=== PATIENT | female | born 1965 | race Caucasian/White ===

== ENCOUNTER 2019-07-10 09:57 | Emergency (ER) | payer OTHER ==
[~2019-07-10] VITALS: Ht 167.7 cm; Wt 52.6 kg
[2019-07-10 10:23] LABS: BASOPHILS % (AUTO) 1 % (0-10); EOSINOPHILS % (AUTO) 1 % (0-10); HEMATOCRIT 23 % (35-52); LYMPHOCYTES # (AUTO) 0.8 X 10^3 (1.0-4.0); LYMPHOCYTES % (AUTO) 25 % (12-44); MEAN CORPUSCULAR HEMOGLOBIN 23 PG (25-34); MEAN CORPUSCULAR HGB CONC 28 G/DL (32-36); MEAN CORPUSCULAR VOLUME 81 FL (80-99); MEAN PLATELET VOLUME 11.2 FL (7.4-10.4); MONOCYTES # (AUTO) 0.4 X 10^3 (0.0-1.0); MONOCYTES % (AUTO) 13 % (0-12); NEUTROPHILS % (AUTO) 61 % (42-75); PLATELET COUNT 109 10^3/uL (130-400); RED CELL DISTRIBUTION WIDTH 19.6 % (10.0-14.5); WHITE BLOOD COUNT 3.3 10^3/uL (4.3-11.0)
[2019-07-10 10:25] LABS: HEMOGLOBIN 6.3 G/DL (11.5-16.0)
[2019-07-10 10:35] LABS: ALBUMIN 3.2 GM/DL (3.2-4.5)
[2019-07-10 10:36] LABS: CHLORIDE 104 MMOL/L (98-107); INR 1.5 (0.8-1.4); POTASSIUM 3.5 MMOL/L (3.6-5.0); PROTHROMBIN TIME PATIENT 18.3 SEC (12.2-14.7); SODIUM 136 MMOL/L (135-145)
[2019-07-10 10:38] LABS: GLUCOSE 115 MG/DL (70-105)
[2019-07-10 10:39] LABS: CARBON DIOXIDE 22 MMOL/L (21-32)
[2019-07-10 10:41] LABS: ALKALINE PHOSPHATASE 137 U/L (40-136)
[2019-07-10 10:42] LABS: CREATININE SERUM 0.84 MG/DL (0.60-1.30); GFR ESTIMATED > 60
[2019-07-10 10:43] LABS: BUN/CREATININE RATIO 6
[2019-07-10 10:44] LABS: ALANINE AMINOTRANSFERASE 20 U/L (0-55); MAGNESIUM 1.8 MG/DL (1.6-2.4)
[2019-07-10 10:54] LABS: ABSOLUTE RETIC # 138 10e9/L (24-90); RETICULOCYTE % 4.91 % (0.50-2.40)
[2019-07-10] MEDS ORDERED: NS IV 500 ML 500 ML ONE (10:56)
--- NOTE | 2019-07-10 11:15 | ED General ---
General Chief Complaint: Respiratory Problems Stated Complaint: SOA Source of Information: Patient Exam Limitations: No Limitations History of Present Illness Date Seen by Provider: July 10, 2019 Time Seen by Provider: 10:04 Initial Comments This 54-year-old woman presents to the emergency room by private vehicle because of severe anemia. She was seen by Daysi Kenyon at the [facility] clinic in [place]. Labs were drawn yesterday and resulted today showing a hemoglobin of 5.7. Patient reports having fatigue and dyspnea with exertion over the past few months. She recently moved here from [place] and was establishing care with [facility]. Allergies and Home Medications Allergies Coded Allergies: Sulfa (Sulfonamide Antibiotics) (Verified Allergy, Unknown, 07/10/19) Patient Home Medication List Home Medication List Reviewed: Yes Review of Systems Review of Systems Constitutional: see HPI EENTM: no symptoms reported Respiratory: see HPI Cardiovascular: no symptoms reported Gastrointestinal: no symptoms reported Genitourinary: no symptoms reported Musculoskeletal: no symptoms reported Skin: no symptoms reported Psychiatric/Neurological: No Symptoms Reported Hematologic/Lymphatic: See HPI Past Aktpvgd-Vujrou-Ztfhbl Hx Past Med/Social Hx: Reviewed Nursing Past Med/Soc Hx Patient Social History Recent Foreign Travel: No Contact w/Someone Who Travel: No Past Medical History Surgeries: Yes Appendectomy, Oophorectomy Respiratory: Yes Cardiac: Yes Neurological: Yes : No Reproductive Disorders: No Genitourinary: No Gastrointestinal: Yes Liver Disease/Jaundice (vague history of liver problems) Musculoskeletal: No Endocrine: No HEENT: No Cancer: No Psychosocial: No Integumentary: No Physical Exam Vital Signs Vital Signs - First Documented 07/10/19 10:02 Temp 37.5 Pulse 114 Resp 17 B/P (MAP) 115/72 (86) Pulse Ox 98 O2 Delivery Room Air Capillary Refill : Height, Weight, BMI Height: '" Weight: lbs. oz. kg; BMI Method: General Appearance: No Apparent Distress, WD/WN, Thin HEENT: PERRL/EOMI, Normal ENT Inspection, Pharynx Normal Neck: Normal Inspection Respiratory: Lungs Clear, Normal Breath Sounds, No Accessory Muscle Use, No Respiratory Distress Cardiovascular: No Edema, No Murmur, Normal Peripheral Pulses, Tachycardia Gastrointestinal: Non Tender, Soft Extremity: Normal Inspection, No Pedal Edema Neurologic/Psychiatric: Alert, Oriented x3, No Motor/Sensory Deficits, Normal Mood/Affect, dye range feeder II-XII Norm as Tested Skin: Normal Color, Warm/Dry Progress/Results/Core Measures Suspected Sepsis SIRS Temperature: Pulse: Respiratory Rate: Laboratory Tests 07/10/19 10:15: White Blood Count 3.3L Blood Pressure / Mean: Laboratory Tests 07/10/19 10:15: Creatinine 0.84, INR Comment 1.5H, Platelet Count 109L, Total Bilirubin 1.0 Results/Orders Lab Results Laboratory Tests Test 07/10/19 10:15 07/10/19 16:00 Range/Units White Blood Count 3.3 L 4.3-11.0 10^3/uL Red Blood Count 2.79 L 4.35-5.85 10^6/uL Hemoglobin 6.3 *L 11.5-16.0 G/DL Hematocrit 23 L 35-52 % Mean Corpuscular Volume 81 80-99 FL Mean Corpuscular Hemoglobin 23 L 25-34 PG Mean Corpuscular Hemoglobin Concent 28 L 32-36 G/DL Red Cell Distribution Width 19.6 H 10.0-14.5 % Platelet Count 109 L 130-400 10^3/uL Mean Platelet Volume 11.2 H 7.4-10.4 FL Neutrophils (%) (Auto) 61 42-75 % Lymphocytes (%) (Auto) 25 12-44 % Monocytes (%) (Auto) 13 H 0-12 % Eosinophils (%) (Auto) 1 0-10 % Basophils (%) (Auto) 1 0-10 % Neutrophils # (Auto) 2.0 1.8-7.8 X 10^3 Lymphocytes # (Auto) 0.8 L 1.0-4.0 X 10^3 Monocytes # (Auto) 0.4 0.0-1.0 X 10^3 Eosinophils # (Auto) 0.0 0.0-0.3 10^3/uL Basophils # (Auto) 0.0 0.0-0.1 10^3/uL Absolute Reticulocyte Count 138 H 24-90 10e9/L Percent Reticulocyte Count 4.91 H 0.50-2.40 % Prothrombin Time 18.3 H 12.2-14.7 SEC INR Comment 1.5 H 0.8-1.4 Sodium Level 136 135-145 MMOL/L Potassium Level 3.5 L 3.6-5.0 MMOL/L Chloride Level 104 98-107 MMOL/L Carbon Dioxide Level 22 21-32 MMOL/L Anion Gap 10 5-14 MMOL/L Blood Urea Nitrogen 5 L 7-18 MG/DL Creatinine 0.84 0.60-1.30 MG/DL Estimat Glomerular Filtration Rate > 60 BUN/Creatinine Ratio 6 Glucose Level 115 H 70-105 MG/DL Calcium Level 8.0 L 8.5-10.1 MG/DL Corrected Calcium 8.6 8.5-10.1 MG/DL Magnesium Level 1.8 1.6-2.4 MG/DL Iron Level 16 L 35-180 ug/dL Total Iron Binding Capacity 453 H 280-380 ug/dL Unsaturated Iron Binding Capacity 437 55-450 ug/dL Transferrin % Saturation 4 L 15-50 % Total Bilirubin 1.0 0.1-1.0 MG/DL Aspartate Amino Transf (AST/SGOT) 45 H 5-34 U/L Alanine Aminotransferase (ALT/SGPT) 20 0-55 U/L Alkaline Phosphatase 137 H 40-136 U/L Total Protein 7.0 6.4-8.2 GM/DL Albumin 3.2 3.2-4.5 GM/DL Lab Scanned Report Transfusion Reaction Form [id number] My Orders Orders - CATRACHO TATE MD Cbc With Automated Diff (07/10/19 10:04) Comprehensive Metabolic Panel (07/10/19 10:04) Magnesium (07/10/19 10:04) Protime With Inr (07/10/19 10:04) Red Cells Leukocytes Reduced (07/10/19 10:04) Type And Screen (07/10/19 10:04) Iron Tibc %Sat & Ferritin (07/10/19 10:48) Reticulocyte Count (07/10/19 10:15) Ns Iv 500 Ml (Sodium Chloride 0.9%) (07/10/19 10:56) Medications Given in ED Current Medications Medications Dose Ordered Sig/Christian Route Start Time Stop Time Status Last Admin Dose Admin Sodium Chloride 500 ml @ STK-MED ONCE .ROUTE 07/10/19 10:56 07/10/19 11:05 DC 07/10/19 11:37 500 MLS/HR Vital Signs/I&O 07/10/19 07/10/19 07/10/19 07/10/19 10:02 11:20 11:35 12:01 Temp 37.5 36.2 36.9 36.2 36.9 36.4 Pulse 114 98 96 96 Resp 17 16 12 B/P (MAP) 115/72 (86) 123/62 103/74 Pulse Ox 98 100 100 O2 Delivery Room Air Room Air Room Air 07/10/19 12:17 Temp 36.4 Pulse 85 Resp 17 B/P (MAP) 105/64 (84) Pulse Ox 100 O2 Delivery Room Air Capillary Refill : Progress Note : Progress Note Patient's hemoglobin was below 7. A unit of blood was transfused. Iron studies were obtained. I contacted Dr. Gordon who agrees scoping should be done very soon. He suggested she also take omeprazole 20 mg daily. Departure Impression Primary Impression: Pancytopenia Additional Impressions: Severe anemia Elevated INR Disposition: HOME, SELF-CARE Condition: Stable Departure-Patient Inst. Decision time for Depature: 11:13 Referrals: [facility]/PUSHPA MORILLO MD Patient Instructions: Blood Transfusion Add. Discharge Instructions: Follow-up with your primary care provider at [facility] as soon as possible. Please also schedule follow-up with Dr. Gordon to arrange for endoscopy. This is important to determine where he might be losing blood. You may continue iron supplementation and/or eating a high iron diet. Take omeprazole 20 mg daily until you have endoscopy. Return to the emergency room if you have worsening symptoms. All discharge instructions reviewed with patient and/or family. Voiced understanding. Copy Copies To 1: DYAN SMITH DO Copies To 2: PUSHPA GORDON MD, JOSHUA T MD July 10, 2019 11:15
[2019-07-10 11:20] VITALS: BP 123/62
[2019-07-10 11:35] VITALS: BP 103/74
[2019-07-10 12:17] VITALS: BP 105/64
== END 2019-07-10 12:15 | disposition home or self-care (01) ==
LOC: ER 09:59
DX: D61.818 Other pancytopenia (principal); R79.1 Abnormal coagulation profile; Z88.2 Allergy status to sulfonamides
CPT/HCPCS: 36415; 36430; 80053; 82728; 83540; 83735; 85025; 85045; 85610; 86850; 86900; 86901; 86920

== ENCOUNTER 2019-07-26 11:16 | Emergency (ER) | payer OTHER ==
[~2019-07-26] VITALS: Ht 167 cm; Wt 50.0 kg
--- NOTE | 2019-07-26 11:29 | ED General ---
General Stated Complaint: LOW HEMOGLOBIN History of Present Illness Date Seen by Provider: Jul 26, 2019 Time Seen by Provider: 11:28 Initial Comments 54-year-old female brought in by EMS. Patient was at her primary care provider when she had a syncope event. No syncope event happen all they were drawing blood from her. Primary feels it was likely vasovagal. However EMS reports that lab at outpatient facility her hemoglobin was 5.9. Patient was seen here couple weeks ago and required a blood transfusion with a low hemoglobin. Patient denies any prior low hemoglobin history. She does have concerns that she's having issues with an ulcer. 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 Patient states that she's had some bloody stool in the past but none recently. She denies any dark tarry stool. Allergies and Home Medications Allergies Coded Allergies: Sulfa (Sulfonamide Antibiotics) (Verified Allergy, Unknown, 07/10/19) Patient Home Medication List Home Medication List Reviewed: Yes Review of Systems Review of Systems Constitutional: No chills, No fever; weakness Respiratory: No cough, No short of breath Cardiovascular: No chest pain, No palpitations Gastrointestinal: see HPI Musculoskeletal: no symptoms reported Skin: no symptoms reported Psychiatric/Neurological: See HPI Past Wtsfgzx-Xuthzt-Nkldrp Hx Past Med/Social Hx: Reviewed Nursing Past Med/Soc Hx Patient Social History 2nd Hand Smoke Exposure: No Recent Hopitalizations: No Seasonal Allergies Seasonal Allergies: Yes Past Medical History Surgeries: Yes Appendectomy, Oophorectomy Respiratory: Yes Pneumonia Cardiac: Yes Neurological: Yes Reproductive Disorders: No Genitourinary: No Gastrointestinal: Yes Liver Disease/Jaundice Musculoskeletal: No Endocrine: No HEENT: No Cancer: No Psychosocial: No Integumentary: No Blood Disorders: No Physical Exam Vital Signs Vital Signs - First Documented 07/26/19 11:25 Temp 36.2 Pulse 97 Resp 18 B/P (MAP) 117/74 (88) Pulse Ox 100 Capillary Refill : Height, Weight, BMI Height: '" Weight: lbs. oz. kg; 18.00 BMI Method: General Appearance: No Apparent Distress, WD/WN HEENT: PERRL/EOMI Respiratory: Lungs Clear, Normal Breath Sounds Cardiovascular: Regular Rate, Rhythm, No Edema Extremity: Normal Capillary Refill, Normal Inspection Neurologic/Psychiatric: Alert, Oriented x3, No Motor/Sensory Deficits Skin: Normal Color, Warm/Dry Lymphatic: No Adenopathy Progress/Results/Core Measures Suspected Sepsis SIRS Temperature: Pulse: Respiratory Rate: Laboratory Tests 07/26/19 11:32: White Blood Count 3.7L Blood Pressure / Mean: Laboratory Tests 07/26/19 11:32: Creatinine 0.85, Platelet Count 113L, Total Bilirubin 0.9 Results/Orders Lab Results Laboratory Tests Test 07/26/19 11:32 Range/Units White Blood Count 3.7 L 4.3-11.0 10^3/uL Red Blood Count 2.93 L 4.35-5.85 10^6/uL Hemoglobin 6.9 *L 11.5-16.0 G/DL Hematocrit 24 L 35-52 % Mean Corpuscular Volume 82 80-99 FL Mean Corpuscular Hemoglobin 24 L 25-34 PG Mean Corpuscular Hemoglobin Concent 29 L 32-36 G/DL Red Cell Distribution Width 18.3 H 10.0-14.5 % Platelet Count 113 L 130-400 10^3/uL Mean Platelet Volume 11.2 H 7.4-10.4 FL Neutrophils (%) (Auto) 75 42-75 % Lymphocytes (%) (Auto) 11 L 12-44 % Monocytes (%) (Auto) 13 H 0-12 % Eosinophils (%) (Auto) 1 0-10 % Basophils (%) (Auto) 1 0-10 % Neutrophils # (Auto) 2.8 1.8-7.8 X 10^3 Lymphocytes # (Auto) 0.4 L 1.0-4.0 X 10^3 Monocytes # (Auto) 0.5 0.0-1.0 X 10^3 Eosinophils # (Auto) 0.0 0.0-0.3 10^3/uL Basophils # (Auto) 0.0 0.0-0.1 10^3/uL Sodium Level 133 L 135-145 MMOL/L Potassium Level 3.9 3.6-5.0 MMOL/L Chloride Level 100 98-107 MMOL/L Carbon Dioxide Level 22 21-32 MMOL/L Anion Gap 11 5-14 MMOL/L Blood Urea Nitrogen 9 7-18 MG/DL Creatinine 0.85 0.60-1.30 MG/DL Estimat Glomerular Filtration Rate > 60 BUN/Creatinine Ratio 11 Glucose Level 122 H 70-105 MG/DL Calcium Level 8.6 8.5-10.1 MG/DL Corrected Calcium 9.2 8.5-10.1 MG/DL Total Bilirubin 0.9 0.1-1.0 MG/DL Aspartate Amino Transf (AST/SGOT) 40 H 5-34 U/L Alanine Aminotransferase (ALT/SGPT) 19 0-55 U/L Alkaline Phosphatase 77 40-136 U/L Troponin I < 0.028 <0.028 NG/ML Total Protein 6.6 6.4-8.2 GM/DL Albumin 3.3 3.2-4.5 GM/DL My Orders Orders - PATRICIAYAMILKA L DO Vital Signs: Special (Order) (07/26/19 11:30) Ns Iv 500 Ml (Sodium Chloride 0.9%) (07/26/19 11:30) Type And Screen (07/26/19 11:30) Cbc With Automated Diff (07/26/19 11:30) Comprehensive Metabolic Panel (07/26/19 11:30) Troponin I (07/26/19 11:30) Pantoprazole Injection (Protonix Injecti (07/26/19 11:30) Iron Tibc %Sat & Ferritin (07/26/19 11:30) Ekg Tracing (07/26/19 12:12) Medications Given in ED Current Medications Medications Dose Ordered Sig/Christian Route Start Time Stop Time Status Last Admin Dose Admin Pantoprazole 80 mg ONCE ONCE IV 07/26/19 11:30 07/26/19 11:34 DC 07/26/19 11:47 80 MG Vital Signs/I&O 07/26/19 11:25 Temp 36.2 Pulse 97 Resp 18 B/P (MAP) 117/74 (88) Pulse Ox 100 Capillary Refill : Progress Note : Time: 12:45 Progress Note Patient with hemoglobin of 6.9. I did discuss with Dr. Torres [facility]. We will discharge patient and transfuse 1 unit outpatient. Patient did not follow back up with [facility] for eventual outpatient workup and likely EGD and colonoscopy. Patient is stable and discharged home in stable condition. Departure Impression Primary Impression: Anemia Qualified Codes: D50.9 - Iron deficiency anemia, unspecified Additional Impression: Cirrhosis of liver Qualified Codes: K74.60 - Unspecified cirrhosis of liver Disposition: HOME, SELF-CARE Condition: Stable Departure-Patient Inst. Referrals: [facility] (PCP/Family) Primary Care Physician Patient Instructions: Diet for Cirrhosis, Anemia Caused by Low Iron Add. Discharge Instructions: Present to outpatient lab for transfusion at discharge Follow-up with [facility] as soon as possible for further evaluation of your anemia YAMILKA GOMEZ DO Jul 26, 2019 11:28
[2019-07-26] MEDS ORDERED: PANTOPRAZOLE 40 MG (PROTONIX) VIAL IV ONE (11:30)
[2019-07-26] MEDS ORDERED: NS IV 500 ML 500 ML IV SCH (11:30)
[2019-07-26 11:42] LABS: BASOPHILS % (AUTO) 1 % (0-10); EOSINOPHILS % (AUTO) 1 % (0-10); HEMATOCRIT 24 % (35-52); LYMPHOCYTES # (AUTO) 0.4 X 10^3 (1.0-4.0); LYMPHOCYTES % (AUTO) 11 % (12-44); MEAN CORPUSCULAR HEMOGLOBIN 24 PG (25-34); MEAN CORPUSCULAR HGB CONC 29 G/DL (32-36); MEAN CORPUSCULAR VOLUME 82 FL (80-99); MEAN PLATELET VOLUME 11.2 FL (7.4-10.4); MONOCYTES # (AUTO) 0.5 X 10^3 (0.0-1.0); MONOCYTES % (AUTO) 13 % (0-12); NEUTROPHILS # (AUTO) 2.8 X 10^3 (1.8-7.8); NEUTROPHILS % (AUTO) 75 % (42-75); PLATELET COUNT 113 10^3/uL (130-400); RED CELL DISTRIBUTION WIDTH 18.3 % (10.0-14.5); WHITE BLOOD COUNT 3.7 10^3/uL (4.3-11.0)
[2019-07-26 11:43] LABS: HEMOGLOBIN 6.9 G/DL (11.5-16.0)
[2019-07-26 11:56] LABS: ALBUMIN 3.3 GM/DL (3.2-4.5)
[2019-07-26 11:57] LABS: CHLORIDE 100 MMOL/L (98-107); POTASSIUM 3.9 MMOL/L (3.6-5.0); SODIUM 133 MMOL/L (135-145)
[2019-07-26 11:58] LABS: CALCIUM 8.6 MG/DL (8.5-10.1)
[2019-07-26 11:59] LABS: GLUCOSE 122 MG/DL (70-105); TOTAL PROTEIN 6.6 GM/DL (6.4-8.2)
[2019-07-26 12:00] LABS: CARBON DIOXIDE 22 MMOL/L (21-32)
[2019-07-26 12:01] LABS: BILIRUBIN,TOTAL 0.9 MG/DL (0.1-1.0)
[2019-07-26 12:02] LABS: ALKALINE PHOSPHATASE 77 U/L (40-136)
[2019-07-26 12:03] LABS: CREATININE SERUM 0.85 MG/DL (0.60-1.30); GFR ESTIMATED > 60
[2019-07-26 12:04] LABS: BUN/CREATININE RATIO 11
[2019-07-26 12:06] LABS: ALANINE AMINOTRANSFERASE 19 U/L (0-55)
[2019-07-26 13:04] VITALS: BP 96/67
--- OUTSIDE RECORDS SUMMARY | 2019-07-26 15:14 | XMS REPORT | Continuity of Care Document ---
Author Organization Unknown Address Unknown Phone Unavailable Allergies Active Description Code Type Severity Reaction Onset Reported/Identified Relationship to Patient Clinical Status Yes Sulfa (Sulfonamide Antibiotics) [id number] 0491 Drug Allergy Unknown N/A 020 Medications There is no data. Problems Date Dx Coded Attending Type Code Diagnosis Diagnosed By 07/12/2019 BEBETO BENITO, CATRACHO [place] Ot D61.818 OTHER PANCYTOPENIA 07/12/2019 BEBETO BENITO, CATRACHO [place] Ot R06.02 SHORTNESS OF BREATH 07/12/2019 BEBETO BENITO, CATRACHO [place] Ot R79.1 ABNORMAL COAGULATION PROFILE 07/12/2019 BEBETO BENITO, CATRACHO [place] Ot Z88.2 ALLERGY STATUS TO SULFONAMIDES STATUS Procedures There is no data. Results Test Result Range TSH w/ FREE T4 - 07/09/19 10:39 TSH 1.89 mIU/L NRG T4, FREE 1.1 ng/dL 0.8-1.8 LIPID PANEL - 07/09/19 10:39 CHOLESTEROL, TOTAL 101 mg/dL <200 HDL CHOLESTEROL 35 mg/dL > OR = 50 TRIGLYCERIDES 95 mg/dL <150 LDL-CHOLESTEROL 48 mg/dL (calc) NRG CHOL/HDLC RATIO 2.9 (calc) <5.0 NON HDL CHOLESTEROL 66 mg/dL (calc) <130 CMP - 07/09/19 10:39 GLUCOSE 93 mg/dL 65-99 UREA NITROGEN (BUN) 5 mg/dL 7-25 CREATININE 0.82 mg/dL 0.50-1.05 eGFR NON-AFR. CHINESE 81 mL/min/1.73m2 > OR = 60 eGFR 94 mL/min/1.73m2 > OR = 60 BUN/CREATININE RATIO 6 (calc) 6-22 SODIUM 137 mmol/L 135-146 POTASSIUM 3.7 mmol/L 3.5-5.3 CHLORIDE 103 mmol/L 98-110 CARBON DIOXIDE 25 mmol/L 20-32 CALCIUM 8.2 mg/dL 8.6-10.4 PROTEIN, TOTAL 6.4 g/dL 6.1-8.1 ALBUMIN 3.1 g/dL 3.6-5.1 GLOBULIN 3.3 g/dL (calc) 1.9-3.7 ALBUMIN/GLOBULIN RATIO 0.9 (calc) 1.0-2. 5 BILIRUBIN, TOTAL 1.0 mg/dL 0.2-1.2 ALKALINE PHOSPHATASE 140 U/L 37-153 AST 35 U/L 10-35 ALT 17 U/L 6-29 CBC - 07/09/19 10:39 WHITE BLOOD CELL COUNT 2.6 Thousand/uL 3 .8-10.8 RED BLOOD CELL COUNT 2.56 Million/uL 3.8 0-5.10 HEMOGLOBIN 5.7 g/dL 11.7-15.5 HEMATOCRIT 20.6 % 35.0-45.0 MCV 80.5 fL 80.0-100.0 MCH 22.3 pg 27.0-33.0 MCHC 27.7 g/dL 32.0-36.0 RDW 17.4 % 11.0-15.0 PLATELET COUNT 70 Thousand/uL 140-400 MPV 12.3 fL 7.5-12.5 ABSOLUTE NEUTROPHILS 1570 cells/uL 1500- 7800 ABSOLUTE LYMPHOCYTES 629 cells/uL 850-39 00 ABSOLUTE MONOCYTES 351 cells/uL 200-950 ABSOLUTE EOSINOPHILS 39 cells/uL 15-500 ABSOLUTE BASOPHILS 10 cells/uL 0-200 NEUTROPHILS 60.4 % NRG LYMPHOCYTES 24.2 % NRG MONOCYTES 13.5 % NRG EOSINOPHILS 1.5 % NRG BASOPHILS 0.4 % NRG PLATELET ESTIMATION - 07/09/19 10:39 PLATELET ESTIMATION DECREASED ADEQUATE CBC MORPHOLOGY - 07/09/19 10:39 CBC MORPHOLOGY NORMAL Complete blood count (CBC) with automate d white blood cell (WBC) differential - 07/10/19 10:15 Blood leukocytes automated count (number/volume) 3.3 10*3/uL 4.3-11.0 Blood erythrocytes automated count (number/volume) 2.79 10*6/uL 4.35-5.85 Venous blood hemoglobin measurement (mass/volume) 6.3 g/dL 11.5-16.0 Blood hematocrit (volume fraction) 23 % 35-52 Automated erythrocyte mean corpuscular volume 81 [ foz_us] 80-99 Automated erythrocyte mean corpuscular h emoglobin (mass per erythrocyte) 23 pg 25-34 Automated erythrocyte mean corpuscular h emoglobin concentration measurement (mass/volume) 28 g/dL 32-36 Automated erythrocyte distribution width ratio 19. 6 % 10.0- 14.5 Automated blood platelet count (count/volume) 109 10*3/uL 130-400 Automated blood platelet mean volume measurement 11.2 [foz_us] 7.4-10.4 Automated blood neutrophils/100 leukocytes 61 % 42-75 Automated blood lymphocytes/100 leukocytes 25 % 12-44 Blood monocytes/100 leukocytes 13 % 0-12 Automated blood eosinophils/100 leukocytes 1 % 0-10 Automated blood basophils/100 leukocytes 1 % 0-10 Blood neutrophils automated count (number/volume) 2.0 10*3 1.8-7.8 Blood lymphocytes automated count (number/volume) 0.8 10*3 1.0-4.0 Blood monocytes automated count (number/volume) 0. 4 10*3 0.0-1.0 Automated eosinophil count 0.0 10*3/uL 0 .0-0.3 Automated blood basophil count (count/volume) 0.0 10*3/uL 0.0-0.1 Comprehensive metabolic panel - 07/10/19 10:15 Serum or plasma sodium measurement (moles/volume) 136 mmol/L 135-145 Serum or plasma potassium measurement (moles/volume) 3.5 mmol/L 3.6-5.0 Serum or plasma chloride measurement (moles/volume) 104 mmol/L 98-107 Carbon dioxide 22 mmol/L 21-32 Serum or plasma anion gap determination (moles/volume) 10 mmol/L 5-14 Serum or plasma urea nitrogen measurement (mass/volume ) 5 mg/dL 7-18 Serum or plasma creatinine measurement (mass/volume) 0.84 mg/dL 0.60-1.30 Serum or plasma urea nitrogen/creatinine mass ratio 6 NRG Serum or plasma creatinine measurement w ith calculation of estimated glomerular filtration rate > NRG Serum or plasma glucose measurement (mass/volume) 115 mg/dL 70-105 Serum or plasma calcium measurement (mass/volume) 8.0 mg/dL 8.5-10.1 Serum or plasma total bilirubin measurement (mass/volu me) 1.0 mg/dL 0.1-1.0 Serum or plasma alkaline phosphatase santiago surement (enzymatic activity/volume) 137 U/L 40-136 Serum or plasma aspartate aminotransfera se measurement (enzymatic activity/volume) 45 U/L 5-34 Serum or plasma alanine aminotransferase measurement (enzymatic activity/volume) 20 U/L 0-55 Serum or plasma protein measurement (mass/volume) 7.0 g/dL 6.4-8.2 Serum or plasma albumin measurement (mass/volume) 3.2 g/dL 3.2-4.5 CALCIUM CORRECTED 8.6 mg/dL 8.5-10.1 PT panel in platelet poor plasma by coag ulation assay - 07/10/19 10:15 Prothrombin time (PT) in platelet poor plasma by coagu lation assay 18.3 s 12.2-14.7 INR in platelet poor plasma or blood by coagulation as say 1.5 0.8-1.4 RED CELLS LEUKO REDUCED AS1 - 07/10/19 1 0:15 RED CELLS LEUKO REDUCED AS1 T RANSFUSED 07/10/19 1053 NRG Blood type T Indirect antibody screen pa jean-claude - 07/10/19 10:15 WRISTBAND NUMBER [id number] NRG ABO+Rh group AP NRG Blood group antibody screen NEGATIVE NR G Magnesium - 07/10/19 10:15 Magnesium 1.8 mg/dL 1.6-2.4 Automated reticulocyte percentage - 06/21 10:15 Blood reticulocytes count (number/volume) 138 10*9 /L 24-90 Blood reticulocytes/100 erythrocytes 4.91 % 0.50-2.40 Serum iron and total iron binding capaci ty panel - 07/10/19 10:15 TIBC 453 % 280-380 UIBC 437 % 55-450 Serum or plasma iron measurement (mass/volume) 16 % 35-180 Total iron binding capacity and transferrin saturation measurement 4 % 15-50 Serum or plasma ferritin measurement (mass/volume) 7.0 % 20.0-177.0 Encounters ACCT No. Visit Date/Time Discharge Status Pt. Type Provider Facility Loc./Unit Complaint [id number] 07/24/2019 11:00:00 [id number] 07/09/2019 10:20:00 Document Registration [id number] 07/26/2019 11:17:00 13:10:00 DIS Emergency GOMEZ YAMILKA EDGE [facility] ER LOW HEMOGLOBIN [id number] 07/10/2019 09:59:00 12:15:00 DIS Outpatient BEBETO BENITO, CATRACHO [place] [facility] ER SOA [id number] 07/26/2019 12:49:[address] Outpatient YAMILKA GOMEZ DO [facility] SDC TYPE CROSSMATACH PRBCS TRA NSFUSE 1 UNIT PRBCS
== END 2019-07-26 13:10 | disposition home or self-care (01) ==
LOC: EDUNIT# 11:16 → ER 11:17
DX: D64.9 Anemia, unspecified (principal); K74.60 Unspecified cirrhosis of liver; Z88.2 Allergy status to sulfonamides; Z90.49 Acquired absence of other specified parts of digestive tract
CPT/HCPCS: 36415; 80053; 82728; 83540; 84484; 85025; 86850; 86900; 86901; 93005

== ENCOUNTER 2019-07-26 12:49 | Outpatient (CLI) | payer OTHER ==
[~2019-07-26] VITALS: Ht 167 cm; Wt 50.0 kg
[2019-07-26 13:20] VITALS: BP 106/69
[2019-07-26] MEDS ORDERED: NS IV 500 ML 500 ML ONE (13:33)
[2019-07-26] MEDS ORDERED: NS IV 500 ML 500 ML IV SCH (13:45)
[2019-07-26 14:10] VITALS: BP 111/43
[2019-07-26 14:25] VITALS: BP 106/68
[2019-07-26 16:15] VITALS: BP 126/71
[2019-07-26 16:27] LABS: HEMOGLOBIN 9.2 G/DL (11.5-16.0)
[2019-07-26 17:15] VITALS: BP 126/71
== END 2019-07-26 17:15 | disposition home or self-care (01) ==
LOC: LAB 12:49 → SDC 17:15
PROVIDERS: ATTEND Student in an Organized Health Care Education/Training Program
DX: Z01.89 Encounter for other specified special examinations (principal)
CPT/HCPCS: 36415; 36430; 85014; 85018; 86850; 86900; 86901; 86920

== ENCOUNTER → 2019-07-30 | Outpatient (CLI) | payer OTHER ==
[~2019-07-30] MED LIST: CATHETER FLUSH 10 ML SYR IV PRN; HOLD METFORMIN - RECEIVED CONTRAST 20 ML VIAL IV SCH; IOHEXOL 350 MG/ML 100 ML (OMNIPAQUE 350) VIAL IV ONE; NS 100 ML (IVPB) BAG IV ONE
--- NOTE | 2019-07-30 14:25 | Diagnostic Imaging Report ---
PROCEDURE: CT abdomen and pelvis with contrast. TECHNIQUE: Multiple contiguous axial images were obtained through the abdomen and pelvis after administration of intravenous contrast. Auto Exposure Controls were utilized during the CT exam to meet ALARA standards for radiation dose reduction. DATE: July 30, 2019. COMPARISON: None. INDICATION: 54-year-old female, cirrhosis. Blood in stool. FINDINGS: The visualized portions of the lung bases are clear. The heart is not enlarged. There is no pericardial effusion. The outer liver contours are not grossly nodular. There is a very prominent abnormally dilated and recanalized paraumbilical vein with large collateral vessels in the anterior abdominal wall subcutaneous tissues at the level of the umbilicus and also in the right anterior abdomen. The spleen is not meeting threshold criteria for diagnosis of splenomegaly at 13.5 cm in craniocaudal dimension. There is no identified focal liver lesion. There is cholelithiasis without evidence of acute cholecystitis. There is no biliary ductal dilation. The main pancreatic duct is not abnormally dilated. Unremarkable appearance of the pancreatic parenchyma. The adrenal glands are unremarkable. Unremarkable appearance of the renal parenchyma. The urinary collecting systems are not distended. There is no identified renal or ureteral stone. The urinary bladder is unremarkable. There is mild wall thickening involving the length of the sigmoid colon extending to the level of the rectum. The intestinal tract is not distended. There is no free intraperitoneal air, drainable fluid collection, or free pelvic fluid. There are atherosclerotic calcifications. There is no identified abnormally enlarged lymph node in the abdomen or pelvis which meets CT size criteria for adenopathy. There is no identified acute bony abnormality. IMPRESSION: 1. Cirrhosis with findings of portal hypertension as described above. 2. Long segment abnormal wall thickening of the entire sigmoid colon to the level of the rectum which may relate to a nonspecific colitis. Infectious and inflammatory etiologies are favored. Dictated by: Dictated on workstation # [id number]
== END ==
LOC: RAD 12:52
PROVIDERS: ATTEND Nurse Practitioner Family
DX: K74.60 Unspecified cirrhosis of liver (principal); K76.6 Portal hypertension; K63.89 Other specified diseases of intestine
CPT/HCPCS: 74177

== ENCOUNTER 2019-11-07 11:47 | Outpatient (CLI) | payer OTHER ==
[~2019-11-07] VITALS: Ht 167.6 cm; Wt 49.1 kg
[2019-11-07 11:43] VITALS: BP 112/61
[2019-11-07] MEDS ORDERED: IRON DEXTRAN 1,000 MG/NS 250 ML IVPB IV ONE ×2 (12:15)
[2019-11-07] MEDS ORDERED: IRON DEXTRAN 25 MG/NS 6.25 ML TOTAL VOLUME IV ONE ×3 (12:15)
[2019-11-07] MEDS ORDERED: FURO40TA4 PO (12:32)
[2019-11-07] MEDS ORDERED: PANT40TA52 PO (12:32)
[2019-11-07] MEDS ORDERED: SPIR100T4 PO (12:32)
[2019-11-07] MEDS ORDERED: SUCR1TAB PO (12:32)
== END 2019-11-07 14:30 | disposition home or self-care (01) ==
LOC: SDC 11:47
PROVIDERS: ATTEND Internal Medicine
DX: K70.30 Alcoholic cirrhosis of liver without ascites (principal); E61.1 Iron deficiency
CPT/HCPCS: 96365

== ENCOUNTER 2019-12-19 05:35 | Outpatient (RCR) | payer OTHER ==
[~2019-12-19] VITALS: Ht 167.7 cm; Wt 50.5 kg
[~2019-12-19 05:35] MED LIST changes: -CATHETER FLUSH 10 ML SYR IV PRN; +FURO40TA4 PO; -HOLD METFORMIN - RECEIVED CONTRAST 20 ML VIAL IV SCH; -IOHEXOL 350 MG/ML 100 ML (OMNIPAQUE 350) VIAL IV ONE; -NS 100 ML (IVPB) BAG IV ONE; +PANT40TA52 PO; +SPIR100T4 PO; +SUCR1TAB PO
== END 2019-12-19 12:44 | disposition home or self-care (01) ==
LOC: PREOP 05:35
PROVIDERS: ATTEND Surgery
DX: Z01.812 Encounter for preprocedural laboratory examination (principal); K62.5 Hemorrhage of anus and rectum; D64.9 Anemia, unspecified; Z20.828 Contact with and (suspected) exposure to other viral communicable diseases
CPT/HCPCS: 87635

== ENCOUNTER 2019-12-23 08:43 | Day surgery (SDC) | payer OTHER ==
[2019-12-23] VITALS (8 sets, daily range): BP systolic 73–128; BP diastolic 46–77
[~2019-12-23] VITALS: Ht 167.7 cm; Wt 50.5 kg
[2019-12-23] MEDS ORDERED: LACTATED RINGERS 1,000 ML IV ONE (08:45)
[2019-12-23] MEDS ORDERED: LACTATED RINGERS 1,000 ML IV STA (08:54)
[2019-12-23] MEDS ORDERED: HURRICAINE EXT TUBE (BENZOCAINE) XX PRN (09:00)
--- NOTE | 2019-12-23 09:49 | Progress Note-Pre Operative ---
Pre-Operative Progress Note H&P Reviewed The H&P was reviewed, patient examined and no changes noted. Time Seen by Provider: 09:46 Date H&P Reviewed: Dec 23, 2019 Time H&P Reviewed: 09:43 Pre-Operative Diagnosis: rectal bleed, anemia, GERD JORDYN JACQUES DO Dec 23, 2019 09:48
[2019-12-23] MEDS ORDERED: PROPOFOL INJECTION 50 ML IV ONE (11:15)
[2019-12-23] MEDS ORDERED: MIDAZOLAM 2 MG/2 ML (VERSED) VIAL ONE (11:15)
--- NOTE | 2019-12-23 12:25 | Progress Note-Post Operative ---
Post-Operative Progess Note Surgeon (s)/Co Founder And Director (s) Surgeon JORDYN JACQUES DO Co Founder And Director: ROSENDO Alvarado Pre-Operative Diagnosis rectal bleed, anemia, GERD Post-Operative Diagnosis Gastritis Friable tissue Int hemorrhoids Procedure & Operative Findings Date of Procedure 12/23/19 Procedure Performed/Findings EGD with bx Colon Anesthesia Type IV sedation by STAPLER MACHINE Estimated Blood Loss Estimated blood loss (mL): scant Specimens/Packing Specimens Removed antral bx body of stomach bx GE jxn bx JORDYN JACQUES DO Dec 23, 2019 12:25
--- NOTE | 2019-12-23 12:27 | Endoscopy Discharge Instruct ---
Endo Procedure/Findings Findings 1.: Gastritis 2.: Internal Hemorrhoids 3.: Other Findings (Friable tissue) Discharge Instructions - Activity: You might feel a little sleepy until tomorrow. This is due to the medicine you received to relax you. Until tomorrow, you should: NOT drive a car, operate machinery or power tools. NOT drink any alcoholic beverages. NOT make any important decisions or sign importortant papers. Do not return to work until tomorrow, unless otherwise instructed. Resume previous activities tomorrow. Diet: Start by taking liquids. If you tolerate liquids, advance to solid food. 1.: Colonscopy in 10 years, EGD in 3 years Notify Physician - If you experience excessive bleeding, unusual abdominal pain, fever, or chest pain, contact your doctor immediately. JORDYN JACQUES DO Dec 23, 2019 12:27
--- NOTE | 2019-12-23 13:07 | Anesthesia-General Post-Op ---
MAC Patient Condition Mental Status/LOC: Same as Preop Cardiovascular: Satisfactory Nausea/Vomiting: Absent Respiratory: Satisfactory Pain: Controlled Complications: Absent Post Op Complications Complications None Follow Up Care/Instructions Patient Instructions None needed. Anesthesiology Discharge Order Discharge Order Patient is doing well, no complaints, stable vital signs, no apparent adverse anesthesia problems. No complications reported per nursing. MARIAM TORRES CRNA Dec 23, 2019 13:07
--- NOTE | 2019-12-24 04:19 | OPERATIVE REPORT ---
DATE OF SERVICE: 12/23/2019 PREOPERATIVE DIAGNOSES: Rectal bleed, anemia and gastroesophageal reflux disease. POSTOPERATIVE DIAGNOSES: 1. Gastritis. 2. Friable mucosal tissue of the colon and some internal hemorrhoids. PROCEDURE: 1. EGD with biopsy. 2. Colonoscopy. SURGEON: Joseph Mcmanus DO SALES AND MANAGEMENT TRAINEE: Bassam March MS3. ANESTHESIA: IV sedation by the MOVIE EXTRA. SPECIMEN: Biopsy from antrum, biopsy from the GE junction, biopsy of body of stomach. BLOOD LOSS: Scant. FLUIDS: Per anesthesia. POSTOPERATIVE CONDITION: Stable. INDICATION FOR PROCEDURE: The patient is a 54-year-old female who has been having some rectal bleeding. She is anemic and she has some GERD and needed a workup. FINDINGS: The patient had some pretty severe gastritis and in the colon had very friable tissue, but I did not see any colitis or any reasons for her rectal bleeding or anemia. She also was noted to have some internal hemorrhoids. PROCEDURE NOTE: After informed consent was obtained, the patient was brought to the endoscopy suite, placed in bed in left lateral decubitus position. She was administered IV sedation by the MOVIE EXTRA who then monitored her vitals the entire time, heart rate, blood pressure and pulse ox. We started with the EGD, placed the scope down the mouth through the esophagus into the stomach. Upon entering the stomach, noted some gastritis, pushed into the duodenum. Duodenum looked fine. Pulled back and did a biopsy of the antrum. Retroflexed the scope, did not really have a hiatal hernia, did have some moderate to severe gastritis in the body of stomach, did a biopsy of body of stomach and then pulled the scope into the GE junction, did a biopsy of the GE junction. The esophagus looked very red, but looked like it cleared and we were able to flush it with saline. At this point, suctioned all the air out of stomach and then pulled the scope up the esophagus and out the mouth. Switched camera, switched gloves, went down below, started the colonoscopy, pushed in to about 150 cm, able to get to the cecum, took a picture of appendiceal orifice, noted the ileocecal valve and then slowly withdrew the scope insufflating to look circumferentially at the ramírez looking at the cecum, up the ascending colon to the hepatic flexure, then down the transverse colon to splenic flexure, into the descending colon down to the sigmoid and finally into the rectum. Throughout the colon, there was very easily friable tissue that bled with just the minimal scope trauma, did not see any colitis, did not see any other masses or any other reasons for the rectal bleeding. Retroflexed the scope in the rectal vault, saw some minimal internal hemorrhoids, took a picture and then removed the scope. The patient tolerated the procedure well. She recovered in endoscopy suite. Job ID: [id number] DocumentID: [id number] Dictated Date: 12/23/2019 17:46:42 Group President Date: 12/24/2019 04:18:03 Dictated By: JOSEPH MCMANUS DO
== END 2019-12-23 12:35 | disposition home or self-care (01) ==
LOC: ENDO 08:43
PROVIDERS: ATTEND Surgery
DX: K29.50 Unspecified chronic gastritis without bleeding (principal); K21.00 Gastro-esophageal reflux disease with esophagitis, without bleeding; K64.8 Other hemorrhoids; D64.9 Anemia, unspecified; K70.30 Alcoholic cirrhosis of liver without ascites; Z88.2 Allergy status to sulfonamides; Z79.899 Other long term (current) drug therapy
CPT/HCPCS: 88305; 88312

== ENCOUNTER 2020-01-16 16:02 | Inpatient (IN) | payer OTHER ==
[~2020-01-16] VITALS: Ht 142 cm; Wt 49.0 kg
[2020-01-16] MEDS ORDERED: ONDANSETRON 4 MG/2 ML (SDV) Z0FRAN IVP ONE (16:15)
[2020-01-16] MEDS ORDERED: LORazepam INJ 2 MG/ML (ATIVAN) VIAL IVP PRN (16:15)
--- NOTE | 2020-01-16 16:26 | ED General ---
General Chief Complaint: General Problems/Pain Stated Complaint: COVID POSITIVE/SOB Source of Information: Patient Exam Limitations: No Limitations History of Present Illness Date Seen by Provider: Jan 16, 2020 Time Seen by Provider: 16:23 Initial Comments To ER by EMS from home with reports that she is Covid positive and short of rashi ath. She states that she tested positive when she was swabbed at a glass curvature gauger appointment on Monday of last week. She states that she was not symptomatic at that time but went in to be seen for her psoriasis and received a cortisone injection. She was then on Monday night and was told that she was positive. She became symptomatic with shortness of breath on Monday. She stat es that she is allergic to cortisone and that her liver does not process it. She states last time she had it about 20 years ago she had to have fluids drained off of her lung. She believes her lungs are filling up with water. Timing/Duration: 4-5 Days Severity: Moderate Associated Systoms: Denies Symptoms Allergies and Home Medications Allergies Coded Allergies: Sulfa (Sulfonamide Antibiotics) (Verified Allergy, Unknown, 07/10/19) Home Medications Furosemide 40 Mg Tablet, 40 MG PO DAILY, (Reported) Pantoprazole Sodium 40 Mg Tablet.dr, 40 MG PO DAILY, (Reported) Spironolactone 100 Mg Tablet, 100 MG PO DAILY, (Reported) Sucralfate 1 Gm Tablet, 1 GM PO BID, (Reported) Patient Home Medication List Home Medication List Reviewed: Yes Review of Systems Review of Systems Constitutional: see HPI EENTM: see HPI Respiratory: see HPI, short of breath Cardiovascular: no symptoms reported Genitourinary: no symptoms reported Musculoskeletal: no symptoms reported Skin: no symptoms reported Psychiatric/Neurological: No Symptoms Reported Hematologic/Lymphatic: No Symptoms Reported Immunological/Allergic: no symptoms reported Past Mrdhzez-Zkhekv-Fknefs Hx Patient Social History 2nd Hand Smoke Exposure: No Recent Foreign Travel: No Contact w/Someone Who Travel: No Recent Hopitalizations: No Immunizations Up To Date Date of Influenza Vaccine: Dec 12, 2019 Seasonal Allergies Seasonal Allergies: Yes Past Medical History Surgeries: Yes Appendectomy, Oophorectomy Respiratory: No Pneumonia Cardiac: Yes Hypertension Neurological: No Reproductive Disorders: No Genitourinary: No Gastrointestinal: Yes Gastroesophageal Reflux Musculoskeletal: No Endocrine: No HEENT: No Cancer: No Psychosocial: No Integumentary: No Blood Disorders: Yes (low iron ) Adverse Reaction/Blood Tranf: No Physical Exam Vital Signs Vital Signs - First Documented 01/16/20 16:04 Temp 36.1 Pulse 78 Resp 24 B/P (MAP) 101/72 (82) Pulse Ox 100 O2 Delivery Room Air Capillary Refill : Height, Weight, BMI Height: '" Weight: lbs. oz. kg; 17.95 BMI Method: General Appearance: No Apparent Distress, WD/WN Eyes: Bilateral Eye Normal Inspection, Bilateral Eye PERRL, Bilateral Eye EOMI Respiratory: No Accessory Muscle Use, No Respiratory Distress Cardiovascular: Regular Rate, Rhythm, Normal Peripheral Pulses Gastrointestinal: Non Tender, Soft Extremity: Normal Capillary Refill, Normal Inspection Neurologic/Psychiatric: Alert, Oriented x3, Other (Her eyes closed when talking to me, tachypneic with a respiratory rate in the upper 20s. Oxygen saturation 100% room air. Heart rate 101. Blood pressure 101/72. Very anxious appearing.) Skin: Normal Color, Warm/Dry Focused Exam Lactate Level 01/16/20 16:10: Lactic Acid Level 5.98*H 01/16/20 18:30: Lactic Acid Level Laboratory Tests Test 01/16/20 16:10 01/16/20 18:30 Lactic Acid Level 5.98 MMOL/L (0.50-2.00) *H Progress/Results/Core Measures Suspected Sepsis SIRS Temperature: Pulse: Respiratory Rate: Laboratory Tests 01/16/20 16:10: White Blood Count 19.7H Blood Pressure / Mean: 01/16/20 16:10: Lactic Acid Level 5.98*H 01/16/20 18:30: Laboratory Tests 01/16/20 16:10: Creatinine 0.66, Platelet Count 111L, Total Bilirubin 1.2H Results/Orders Lab Results Laboratory Tests Test 01/16/20 16:10 01/16/20 17:30 01/16/20 18:30 Range/Units White Blood Count 19.7 H 4.3-11.0 10^3/uL Red Blood Count 2.97 L 3.80-5.11 10^6/uL Hemoglobin 9.4 L 11.5-16.0 g/dL Hematocrit 30 L 35-52 % Mean Corpuscular Volume 102 H 80-99 fL Mean Corpuscular Hemoglobin 32 25-34 pg Mean Corpuscular Hemoglobin Concent 31 L 32-36 g/dL Red Cell Distribution Width 15.3 H 10.0-14.5 % Platelet Count 111 L 130-400 10^3/uL Mean Platelet Volume 12.4 H 9.0-12.2 fL Immature Granulocyte % (Auto) 1 % Neutrophils (%) (Auto) 84 H 42-75 % Lymphocytes (%) (Auto) 7 L 12-44 % Monocytes (%) (Auto) 8 0-12 % Eosinophils (%) (Auto) 0 0-10 % Basophils (%) (Auto) 0 0-10 % Neutrophils # (Auto) 16.5 H 1.8-7.8 10^3/uL Lymphocytes # (Auto) 1.4 1.0-4.0 10^3/uL Monocytes # (Auto) 1.5 H 0.0-1.0 10^3/uL Eosinophils # (Auto) 0.0 0.0-0.3 10^3/uL Basophils # (Auto) 0.0 0.0-0.1 10^3/uL Immature Granulocyte # (Auto) 0.3 H 0.0-0.1 10^3/uL Neutrophils % (Manual) 92 % Lymphocytes % (Manual) 4 % Monocytes % (Manual) 3 % Eosinophils % (Manual) 1 % Blood Morphology Comment NORMAL Sodium Level 135 135-145 MMOL/L Potassium Level 4.2 3.6-5.0 MMOL/L Chloride Level 102 98-107 MMOL/L Carbon Dioxide Level 17 L 21-32 MMOL/L Anion Gap 16 H 5-14 MMOL/L Blood Urea Nitrogen 41 H 7-18 MG/DL Creatinine 0.66 0.60-1.30 MG/DL Estimat Glomerular Filtration Rate > 60 BUN/Creatinine Ratio 62 Glucose Level 164 H 70-105 MG/DL Lactic Acid Level 5.98 *H 0.50-2.00 MMOL/L Calcium Level 9.8 8.5-10.1 MG/DL Corrected Calcium 10.6 H 8.5-10.1 MG/DL Total Bilirubin 1.2 H 0.1-1.0 MG/DL Aspartate Amino Transf (AST/SGOT) 45 H 5-34 U/L Alanine Aminotransferase (ALT/SGPT) 30 0-55 U/L Alkaline Phosphatase 80 40-136 U/L Troponin I < 0.028 <0.028 NG/ML C-Reactive Protein High Sensitivity 0.48 0.00-0.50 MG/DL Total Protein 6.1 L 6.4-8.2 GM/DL Albumin 3.0 L 3.2-4.5 GM/DL Procalcitonin 0.14 H <0.10 NG/ML Urine Color YELLOW Urine Clarity CLEAR Urine pH 7.0 5-9 Urine Specific [place] 1.010 L 1.016-1.022 Urine Protein NEGATIVE NEGATIVE Urine Glucose (UA) NEGATIVE NEGATIVE Urine Ketones NEGATIVE NEGATIVE Urine Nitrite NEGATIVE NEGATIVE Urine Bilirubin NEGATIVE NEGATIVE Urine Urobilinogen 0.2 < = 1.0 MG/DL Urine Leukocyte Esterase 1+ H NEGATIVE Urine RBC (Auto) 2+ H NEGATIVE Urine RBC NONE /HPF Urine WBC 10-25 H /HPF Urine Squamous Epithelial Cells 0-2 /HPF Urine Crystals NONE /LPF Urine Bacteria TRACE /HPF Urine Casts NONE /LPF Urine Mucus NEGATIVE /LPF Urine Culture Indicated YES Urine Opiates Screen NEGATIVE NEGATIVE Urine Oxycodone Screen NEGATIVE NEGATIVE Urine Methadone Screen NEGATIVE NEGATIVE Urine Propoxyphene Screen NEGATIVE NEGATIVE Urine Barbiturates Screen NEGATIVE NEGATIVE Ur Tricyclic Antidepressants Screen NEGATIVE NEGATIVE Urine Phencyclidine Screen NEGATIVE NEGATIVE Urine Amphetamines Screen NEGATIVE NEGATIVE Urine Methamphetamines Screen NEGATIVE NEGATIVE Urine Benzodiazepines Screen NEGATIVE NEGATIVE Urine Cocaine Screen NEGATIVE NEGATIVE Urine Cannabinoids Screen NEGATIVE NEGATIVE My Orders Orders - CARLITOS PULIDO APRN Ondansetron Injection (Zofran Injectio (01/16/20 16:15) Lorazepam Injection (Ativan Injection) (01/16/20 16:15) Cbc With Automated Diff (01/16/20 16:13) Hs C Reactive Protein (01/16/20 16:13) Comprehensive Metabolic Panel (01/16/20 16:13) Procalcitonin (Pct) (01/16/20 16:13) Chest 1 View, Ap/Pa Only (01/16/20 16:13) Troponin I (01/16/20 16:13) Ekg Tracing (01/16/20 16:13) Ua Culture If Indicated (01/16/20 16:22) Drug Screen Stat (Urine) (01/16/20 16:22) Lactated Ringers (Lr 1000 Ml Iv Solution (01/16/20 16:30) Manual Differential (01/16/20 16:10) Lactic Acid Analyzer (01/16/20 16:57) Ct Chest/Abdomen/Pelvis W (01/16/20 17:12) Pantoprazole Injection (Protonix Injecti (01/16/20 17:15) Ns Iv 500 Ml (Sodium Chloride 0.9%) (01/16/20 17:15) Iohexol Injection (Omnipaque 350 Mg/Ml 1 (01/16/20 17:45) Received Contrast (Hold Metformin- Contr (01/16/20 17:45) Ns (Ivpb) (Sodium Chloride 0.9% Ivpb Bag (01/16/20 17:45) Urine Culture (01/16/20 17:30) Ceftriaxone For Iv Use (Rocephin For I (01/16/20 18:15) Medications Given in ED Current Medications Medications Dose Ordered Sig/Christian Route Start Time Stop Time Status Last Admin Dose Admin Iohexol 100 ml ONCE ONCE IV 01/16/20 17:45 01/16/20 17:46 DC 01/16/20 18:12 66 ML Lorazepam 0.5 mg ONCE PRN IVP 01/16/20 16:15 01/16/20 16:31 0.5 MG Ondansetron HCl 4 mg ONCE ONCE IVP 01/16/20 16:15 01/16/20 16:16 DC 01/16/20 16:31 4 MG Pantoprazole 40 mg ONCE ONCE IV 01/16/20 17:15 01/16/20 17:16 DC 01/16/20 17:24 40 MG Sodium Chloride 100 ml ONCE ONCE IV 01/16/20 17:45 01/16/20 17:46 DC 01/16/20 18:12 80 ML Vital Signs/I&O 01/16/20 16:04 Temp 36.1 Pulse 78 Resp 24 B/P (MAP) 101/72 (82) Pulse Ox 100 O2 Delivery Room Air Capillary Refill : Diagnostic Imaging Diagonstic Imaging: Xray Comments NAME: MONTY PARKER MED REC#: [id number] PT STATUS: REG ER : 1965 PHYSICIAN: CARLITOS PULIDO APRN ADMIT DATE: 01/16/20/ER Signed Date of Exam:01/16/20 CHEST 1 VIEW, AP/PA ONLY PATIENT HISTORY: Cough. TECHNIQUE: Single frontal view of the chest. COMPARISON: None. FINDINGS: The lung volumes are large. No focal consolidation is seen. No large pleural effusion or pneumothorax is seen. The cardiomediastinal silhouette is normal in size and contour. No acute osseous abnormality is seen. IMPRESSION: No acute pulmonary abnormality seen. Dictated by: Dictated on workstation # [id number] Dict: 01/16/201646 Trans: 01/16/201649 [facility] [id number] Interpreted by: ANDRÉS CASTILLO MD Electronically signed by: ANDRÉS CASTILLO MD 01/16/201649 NAME: MONTY PARKER [facility] REC#: [id number] PT STATUS: REG ER : 1965 PHYSICIAN: CARLITOS PULIDO CHEMICAL RADIATION TECHNICIAN ADMIT DATE: 01/16/20/ER Signed Date of Exam:01/16/20 CT CHEST/ABDOMEN/PELVIS W PROCEDURE: CT chest, abdomen, and pelvis with contrast. TECHNIQUE: Multiple contiguous axial images were obtained through the chest, abdomen, and pelvis after the administration of intravenous contrast. Auto Exposure Controls were utilized during the CT exam to meet ALARA standards for radiation dose reduction. DATE: January 16, 2020. COMPARISON: Chest radiograph January 16, 2020. CT abdomen pelvis July 30, 2019. INDICATION: 54-year-old female, fever, weakness. Elevated lactic acid. Epigastric pain. Covid positive. Black stool. Shortness of breath. FINDINGS: There is a 3 mm noncalcified right lower lobe pulmonary nodule on axial image 33. There is no lung mass. There is no additional focal airspace consolidation. There is no pneumothorax. There is no pleural effusion. The central airways are patent. There is no identified central or segmental pulmonary embolus. The heart is not enlarged. There is no pericardial effusion. There is no identified abnormally enlarged mediastinal, hilar or axillary lymph node meeting CT size criteria for adenopathy. The liver is mildly nodular in outer contour compatible with cirrhosis. There is no identified focal liver lesion. There is a dilated recanalized paraumbilical vein. There is a dilated collateral vein protruding in the region of the umbilicus. The main portal vein is patent. The gallbladder is not distended. There is cholelithiasis. There is very small amount of pericholecystic fluid without prominent adjacent inflammatory stranding. There is no identified intrahepatic or extrahepatic bile duct dilation. The main pancreatic duct is not abnormally dilated. There is a very small amount of fluid attenuation and stranding adjacent to the pancreas. The spleen is normal in size. The adrenal glands are unremarkable. Unremarkable appearance of the renal parenchyma. The urinary collecting systems are not distended. There is no identified renal or ureteral stone. The urinary bladder is unremarkable. The intestinal tract is not distended. The appendix is not well seen. There is no identified secondary findings to specifically suggest acute appendicitis. There is no free intraperitoneal air. There is no focal drainable fluid collection. There are atherosclerotic calcifications. There is no identified abnormally enlarged lymph node in the abdomen or pelvis specifically meeting CT size criteria for adenopathy. There is no identified acute bony abnormality. IMPRESSION: CT Chest, abdomen and pelvis: 1. No identified acute cardiopulmonary abnormality. 2. Cirrhosis with dilated and recanalized paraumbilical vein and dilated collateral vein protruding in the region of the umbilicus. Minimal ascites. 3. Very small amount of fluid attenuation adjacent to the pancreas without disruption of the pancreatic parenchyma architecture. This could relate to minimal ascites although correlation with laboratory values is recommended as acute pancreatitis would be difficult to exclude. 4. Cholelithiasis without evidence of acute cholecystitis. No biliary ductal dilation. Dictated by: Dictated on workstation # [id number] Dict: 01/16/201817 Trans: 01/16/201834 [facility] [id number] Interpreted by: PORFIRIO BRADLEY MD Electronically signed by: PORFIRIO BRADLEY MD 01/16/201834 Departure Impression Primary Impression: UTI (urinary tract infection) Additional Impression: COVID-19 Disposition: 09 ADMITTED INPATIENT Condition: Stable Admissions Decision to Admit Reason: Admit from ER (General) Decision to Admit/Date: Jan 16, 2020 Time/Decision to Admit Time: 18:44 Departure-Patient Inst. Referrals: [facility] [place] (PCP/Family) Primary Care Physician CARLITOS PULIDO APRN Jan 16, 2020 16:26
[2020-01-16 16:29] LABS: BASOPHILS % (AUTO) 0 % (0-10); HEMOGLOBIN 9.4 g/dL (11.5-16.0); MEAN PLATELET VOLUME 12.4 fL (9.0-12.2)
[2020-01-16] MEDS ORDERED: LACTATED RINGERS 1,000 ML IV SCH (16:30)
[2020-01-16 16:31] LABS: EOSINOPHILS % (AUTO) 0 % (0-10); HEMATOCRIT 30 % (35-52); LYMPHOCYTES # (AUTO) 1.4 10^3/uL (1.0-4.0); LYMPHOCYTES % (AUTO) 7 % (12-44); MEAN CORPUSCULAR HEMOGLOBIN 32 pg (25-34); MEAN CORPUSCULAR HGB CONC 31 g/dL (32-36); MEAN CORPUSCULAR VOLUME 102 fL (80-99); MONOCYTES # (AUTO) 1.5 10^3/uL (0.0-1.0); MONOCYTES % (AUTO) 8 % (0-12); NEUTROPHILS # (AUTO) 16.5 10^3/uL (1.8-7.8); NEUTROPHILS % (AUTO) 84 % (42-75); PLATELET COUNT 111 10^3/uL (130-400); WHITE BLOOD COUNT 19.7 10^3/uL (4.3-11.0)
[2020-01-16 16:38] LABS: CHLORIDE 102 MMOL/L (98-107); POTASSIUM 4.2 MMOL/L (3.6-5.0); SODIUM 135 MMOL/L (135-145)
[2020-01-16 16:39] LABS: CALCIUM 9.8 MG/DL (8.5-10.1)
[2020-01-16 16:40] LABS: GLUCOSE 164 MG/DL (70-105); TOTAL PROTEIN 6.1 GM/DL (6.4-8.2)
[2020-01-16 16:41] LABS: CARBON DIOXIDE 17 MMOL/L (21-32)
[2020-01-16 16:42] LABS: BILIRUBIN,TOTAL 1.2 MG/DL (0.1-1.0)
[2020-01-16 16:44] LABS: ALKALINE PHOSPHATASE 80 U/L (40-136); CREATININE SERUM 0.66 MG/DL (0.60-1.30); GFR ESTIMATED > 60
[2020-01-16 16:45] LABS: BUN/CREATININE RATIO 62
[2020-01-16 16:47] LABS: ALANINE AMINOTRANSFERASE 30 U/L (0-55)
--- NOTE | 2020-01-16 16:50 | Diagnostic Imaging Report ---
PATIENT HISTORY: Cough. TECHNIQUE: Single frontal view of the chest. COMPARISON: None. FINDINGS: The lung volumes are large. No focal consolidation is seen. No large pleural effusion or pneumothorax is seen. The cardiomediastinal silhouette is normal in size and contour. No acute osseous abnormality is seen. IMPRESSION: No acute pulmonary abnormality seen. Dictated by: Dictated on workstation # [id number]
[2020-01-16] MEDS ORDERED: NS IV 500 ML 500 ML IV SCH (17:15)
[2020-01-16] MEDS ORDERED: PANTOPRAZOLE 40 MG (PROTONIX) VIAL IV ONE (17:15)
[2020-01-16 17:36] LABS: EOSINOPHILS % (MANUAL) 1 %; LYMPHOCYTES % (MANUAL) 4 %; MONOCYTES % (MANUAL) 3 %; NEUTROPHILS % (MANUAL) 92 %; RBC MORPH NORMAL
[2020-01-16 17:40] LABS: BILIRUBIN,URINE NEGATIVE (NEGATIVE); CLARITY,URINE CLEAR; COLOR,URINE YELLOW; GLUCOSE, URINE (UA) NEGATIVE (NEGATIVE); KETONES,URINE NEGATIVE (NEGATIVE); LEUKOCYTE ESTERASE ,URINE 1+ (NEGATIVE); NITRITE,URINE NEGATIVE (NEGATIVE); PROTEIN,URINE NEGATIVE (NEGATIVE)
[2020-01-16] MEDS ORDERED: HOLD METFORMIN - RECEIVED CONTRAST 20 ML VIAL IV SCH (17:45)
[2020-01-16] MEDS ORDERED: IOHEXOL 350 MG/ML 100 ML (OMNIPAQUE 350) VIAL IV ONE (17:45)
[2020-01-16] MEDS ORDERED: NS 100 ML (IVPB) BAG IV ONE (17:45)
[2020-01-16 17:53] LABS: AMPHETAMINE SCREEN, URINE NEGATIVE (NEGATIVE); BARBITURATE SCREEN URINE NEGATIVE (NEGATIVE); BENZODIAZEPINES SCREEN URINE NEGATIVE (NEGATIVE); CANNABINOID SCREEN, URINE NEGATIVE (NEGATIVE); COCAINE SCREEN URINE NEGATIVE (NEGATIVE); METHADONE STAT NEGATIVE (NEGATIVE); METHAMPHETAMINE SCREEN URINE S NEGATIVE (NEGATIVE); OPIATE SCREEN URINE NEGATIVE (NEGATIVE); OXYCODONE STAT NEGATIVE (NEGATIVE); PROPOXYPHENE STAT NEGATIVE (NEGATIVE); TRICYCLIC ANTIDEPRESSANTS SCRE NEGATIVE (NEGATIVE)
[2020-01-16 17:55] LABS: BACTERIA,URINE TRACE /HPF; SQUAMOUS EPITHELIAL CELL,UR 0-2 /HPF
[2020-01-16] MEDS ORDERED: cefTRIAXone FOR IV USE 1,000 MG in WATER (STERILE) FOR INJECTION 10 ML IV ONE (18:15)
--- NOTE | 2020-01-16 18:30 | Diagnostic Imaging Report ---
PROCEDURE: CT chest, abdomen, and pelvis with contrast. TECHNIQUE: Multiple contiguous axial images were obtained through the chest, abdomen, and pelvis after the administration of intravenous contrast. Auto Exposure Controls were utilized during the CT exam to meet ALARA standards for radiation dose reduction. DATE: January 16, 2020. COMPARISON: Chest radiograph January 16, 2020. CT abdomen pelvis July 30, 2019. INDICATION: 54-year-old female, fever, weakness. Elevated lactic acid. Epigastric pain. Covid positive. Black stool. Shortness of breath. FINDINGS: There is a 3 mm noncalcified right lower lobe pulmonary nodule on axial image 33. There is no lung mass. There is no additional focal airspace consolidation. There is no pneumothorax. There is no pleural effusion. The central airways are patent. There is no identified central or segmental pulmonary embolus. The heart is not enlarged. There is no pericardial effusion. There is no identified abnormally enlarged mediastinal, hilar or axillary lymph node meeting CT size criteria for adenopathy. The liver is mildly nodular in outer contour compatible with cirrhosis. There is no identified focal liver lesion. There is a dilated recanalized paraumbilical vein. There is a dilated collateral vein protruding in the region of the umbilicus. The main portal vein is patent. The gallbladder is not distended. There is cholelithiasis. There is very small amount of pericholecystic fluid without prominent adjacent inflammatory stranding. There is no identified intrahepatic or extrahepatic bile duct dilation. The main pancreatic duct is not abnormally dilated. There is a very small amount of fluid attenuation and stranding adjacent to the pancreas. The spleen is normal in size. The adrenal glands are unremarkable. Unremarkable appearance of the renal parenchyma. The urinary collecting systems are not distended. There is no identified renal or ureteral stone. The urinary bladder is unremarkable. The intestinal tract is not distended. The appendix is not well seen. There is no identified secondary findings to specifically suggest acute appendicitis. There is no free intraperitoneal air. There is no focal drainable fluid collection. There are atherosclerotic calcifications. There is no identified abnormally enlarged lymph node in the abdomen or pelvis specifically meeting CT size criteria for adenopathy. There is no identified acute bony abnormality. IMPRESSION: CT Chest, abdomen and pelvis: 1. No identified acute cardiopulmonary abnormality. 2. Cirrhosis with dilated and recanalized paraumbilical vein and dilated collateral vein protruding in the region of the umbilicus. Minimal ascites. 3. Very small amount of fluid attenuation adjacent to the pancreas without disruption of the pancreatic parenchyma architecture. This could relate to minimal ascites although correlation with laboratory values is recommended as acute pancreatitis would be difficult to exclude. 4. Cholelithiasis without evidence of acute cholecystitis. No biliary ductal dilation. Dictated by: Dictated on workstation # [id number]
[2020-01-16] MEDS ORDERED: cefTRIAXone 1,000 MG IV (ROCEPHIN) VIAL ONE (19:49)
--- NOTE | 2020-01-16 20:27 | NUR ---
MONTY PARKER admitted to room 423-1, with an admitting diagnosis of UTI, SEVERE SEPSIS, CIRRHOSIS, COVID, UPPER GI BLEED , on 01/16/20 from ED via , accompanied by STAFF .MONTY PARKER introduced to surroundings, call light, bed controls, phone, TV, temperature control, lights, meal times, smoking policy, visitor policy, side rail policy, bathrooms and showers. Patient Rights given to patient in the handbook.MONTY PARKER verbalizes understanding that [facility] is not responsible for the loss or damage to any personal effects or valuables that are kept in the patients posession during their hospitalization.
[2020-01-16] MEDS ORDERED: NS IV 1000 ML 1,000 ML ONE (20:28)
[2020-01-16] MEDS: NS IV 1000 ML 1,000 ML IV SCH (20:37)
[2020-01-16] MEDS: PANTOPRAZOLE 40 MG (PROTONIX) VIAL IV SCH (20:41)
[2020-01-16 20:42] VITALS: BP 114/72
[2020-01-16 20:44] VITALS: BP 114/72
[2020-01-16] MEDS ORDERED: PIPERACILLIN/TAZO 4.5 GM VIAL (ZOSYN) IV ONE (20:44)
[2020-01-16] MEDS ORDERED: LORazepam INJ 2 MG/ML (ATIVAN) VIAL IV PRN (20:45)
[2020-01-16] MEDS ORDERED: ONDANSETRON 4 MG/2 ML (SDV) Z0FRAN IV PRN (20:45)
[2020-01-16] MEDS ORDERED: NS (IVPB) 100 ML ONE (20:45)
[2020-01-16] MEDS: PIPERACILLIN/TAZO 4.5 GM/NS 100 ML IV SCH ×2 (20:54)
[2020-01-16] MEDS: IBUPROFEN 600 MG (MOTRIN) TAB PO PRN (22:04)
[2020-01-16 23:43] VITALS: BP 107/60
[2020-01-17] VITALS (11 sets, daily range): BP systolic 93–124; BP diastolic 58–80
[2020-01-17] MEDS ORDERED: PIPERACILLIN/TAZO 4.5 GM VIAL (ZOSYN) IV ONE (04:16)
[2020-01-17] MEDS ORDERED: NS (IVPB) 100 ML ONE (04:16)
[2020-01-17] MEDS: NS IV 1000 ML 1,000 ML IV SCH ×3 (04:42→20:59)
[2020-01-17] MEDS: PANTOPRAZOLE 40 MG (PROTONIX) VIAL IV SCH ×2 (05:12→17:00)
[2020-01-17] MEDS: PIPERACILLIN/TAZO 4.5 GM/NS 100 ML IV SCH ×6 (05:12→20:57)
[2020-01-17 05:48] LABS: MEAN CORPUSCULAR VOLUME 101 fL (80-99); MONOCYTES % (AUTO) 8 % (0-12); NEUTROPHILS # (AUTO) 6.9 10^3/uL (1.8-7.8)
[2020-01-17 05:50] LABS: BASOPHILS % (AUTO) 0 % (0-10); EOSINOPHILS # (AUTO) 0.2 10^3/uL (0.0-0.3); EOSINOPHILS % (AUTO) 2 % (0-10); HEMATOCRIT 21 % (35-52); LYMPHOCYTES # (AUTO) 0.9 10^3/uL (1.0-4.0); LYMPHOCYTES % (AUTO) 11 % (12-44); MEAN CORPUSCULAR HEMOGLOBIN 32 pg (25-34); MEAN CORPUSCULAR HGB CONC 31 g/dL (32-36); MEAN PLATELET VOLUME 12.6 fL (9.0-12.2); MONOCYTES # (AUTO) 0.7 10^3/uL (0.0-1.0); NEUTROPHILS % (AUTO) 79 % (42-75); PLATELET COUNT 70 10^3/uL (130-400); WHITE BLOOD COUNT 8.7 10^3/uL (4.3-11.0)
[2020-01-17 05:57] LABS: HEMOGLOBIN 6.6 g/dL (11.5-16.0)
[2020-01-17 05:58] LABS: ALBUMIN 2.4 GM/DL (3.2-4.5); CHLORIDE 108 MMOL/L (98-107); POTASSIUM 3.6 MMOL/L (3.6-5.0); SODIUM 137 MMOL/L (135-145)
[2020-01-17 05:59] LABS: CALCIUM 7.6 MG/DL (8.5-10.1)
[2020-01-17 06:00] LABS: GLUCOSE 93 MG/DL (70-105); TOTAL PROTEIN 4.5 GM/DL (6.4-8.2)
[2020-01-17 06:01] LABS: CARBON DIOXIDE 20 MMOL/L (21-32)
[2020-01-17 06:02] LABS: BILIRUBIN,TOTAL 0.7 MG/DL (0.1-1.0)
[2020-01-17 06:04] LABS: ALKALINE PHOSPHATASE 59 U/L (40-136); GFR ESTIMATED > 60
[2020-01-17 06:05] LABS: BUN/CREATININE RATIO 48
--- NOTE | 2020-01-17 06:05 | NUR ---
H&H 6.6, 21 DR. CALDERÓN NOTIFIED, NEW ORDER RECEIVED: GIVE 2 UNITS PRBC'S AND OCCULT BLOOD STOOLS. WILL CONTINUE TO MONITOR.
[2020-01-17 06:07] LABS: ALANINE AMINOTRANSFERASE 22 U/L (0-55)
[2020-01-17] MEDS ORDERED: NS IV 500 ML 500 ML IV SCH (06:15)
--- NOTE | 2020-01-17 07:01 | History & Physical-Hospitalist ---
History of Present Illness HPI/Chief Complaint CC: Hypoxia with weakness HPI: This is a 54 yoWF clinic patient of [facility] who presented to the ER with hypoxia and weakness. COVID swab taken and pending at time of exam. GIB suspected to Dr Jensen consulted. Repeat labs in morning revealed hgb 6.6 so transfused 2 units of blood. Black stools reported per patient. O2 maintained. Source: patient Exam Limitations: no limitations Date Seen 01/17/20 Time Seen by a Provider: 11:00 Attending Physician Sabrina Ghotra DO [facility] [place] Referring Physician Date of Admission Jan 16, 2020 at 19:10 Home Medications & Allergies Home Medications Reviewed patient Home Medication Reconciliation performed by pharmacy medication reconciliations brewing technician and/or nursing. Patients Allergies have been reviewed. Allergies Allergies Coded Allergies Sulfa (Sulfonamide Antibiotics) (Verified Allergy, Unknown, 07/10/19) Past Xstcxov-Pukebu-Jvpfpb Hx Past Med/Social Hx: Reviewed Nursing Past Med/Soc Hx, Reviewed and Corrections made Patient Social History Marrital Status: single Employed/Student: unemployed Alcohol Use: Denies Use Recreational Drug Use: No Smoking Status: Current Everyday Smoker 2nd Hand Smoke Exposure: No Recent Foreign Travel: No Contact w/other who traveled: No Recent Hopitalizations: No Recent Infectious Disease Expo: No Immunizations Up To Date Tetanus Booster (TDap): Unknown Date of Influenza Vaccine: Dec 12, 2019 Seasonal Allergies Seasonal Allergies: Yes Past Medical History Surgeries: Appendectomy, Oophorectomy Cardiac: Hypertension Reproductive: No Gastrointestinal: Gastroesophageal Reflux History of Blood Disorders: Yes (low iron ) Adverse Reaction to Blood Mendez: No Family History Patient reports no known family medical history. Review of Systems Constitutional: see HPI, malaise, weakness Respiratory: dyspnea on exertion Physical Exam Physical Exam Vital Signs Vital Signs - First Documented 01/16/20 16:04 Temp 36.1 Pulse 78 Resp 24 B/P (MAP) 101/72 (82) Pulse Ox 100 O2 Delivery Room Air Capillary Refill : Less Than 3 Seconds Height, Weight, BMI Height: '" Weight: lbs. oz. kg; 24.30 BMI Method: General Appearance: No Apparent Distress, Chronically ill, Thin Eyes: Right Eye Normal Inspection, Right Eye PERRL HEENT: PERRL/EOMI, Normal ENT Inspection, Pharynx Normal, Moist Mucous Membranes Neck: Full Range of Motion, Normal Inspection, Non Tender Respiratory: Chest Non Tender, Lungs Clear, Normal Breath Sounds, No Accessory Muscle Use, No Respiratory Distress Cardiovascular: Regular Rate, Rhythm, No Edema, No Gallop, No JVD, No Murmur, Normal Peripheral Pulses Gastrointestinal: Normal Bowel Sounds, No Organomegaly, No Pulsatile Mass, Non Tender, Soft Back: Normal Inspection, No CVA Tenderness, No Vertebral Tenderness Extremity: Normal Capillary Refill, Normal Inspection, Normal Range of Motion, Non Tender, No Calf Tenderness, No Pedal Edema Neurologic/Psychiatric: Alert, Oriented x3, No Motor/Sensory Deficits, Normal Mood/Affect Skin: Normal Color, Warm/Dry Lymphatic: No Adenopathy Results Results/Procedures Labs Laboratory Tests 01/16/20 16:10 01/17/20 05:20 Patient resulted labs reviewed. Assessment/Plan Admission Diagnosis Assessment: GIB Sepsis UTI Cirrhosis Weakness Anemia Plan: Monitor hgb Transfuse PPI Dr Jensen consultation Admission Status: Inpatient Order (span 2 midnights) Reason for Inpatient Admission: GIB Diagnosis/Problems Diagnosis/Problems (1) Upper GI bleed (2) UTI (urinary tract infection) Status: Acute (3) Sepsis (4) Cirrhosis (5) Anemia (6) Rectal bleeding Clinical Quality Measures DVT/VTE Risk/Contraindication: Risk Factor Score Per Nursin RFS Level Per Nursing on Admit: 4+=Very High SABRINA GHOTRA DO Jan 17, 2020 07:00
[2020-01-17] MEDS ORDERED: NS IV 500 ML 500 ML ONE (08:59)
[2020-01-17] MEDS: IBUPROFEN 600 MG (MOTRIN) TAB PO PRN (09:50)
[2020-01-17] MEDS ORDERED: ERGO50006 PO (10:49)
[2020-01-17] MEDS ORDERED: SPIR100T PO (10:49)
[2020-01-17] MEDS ORDERED: PARO10TA3 PO (10:49)
[2020-01-17] MEDS ORDERED: HYDR-700 PO (10:49)
[2020-01-17] MEDS ORDERED: FAMO20TA25 PO (10:49)
--- NOTE | 2020-01-17 10:55 | NUR ---
SPOKE WITH THE PT (I CALLED HER ROOM PHONE) AND WENT THRU THE EXT MED HISTORY TO COMPLETE THE MED REC PT HAD A HARD TIME NAMING HER MEDICATIONS, I SAID THE NAMES OF MEDS THAT WERE ON THE EXT MED HISTORY AND PT WAS ABLE TO VERIFY SHE WAS TAKING THEM BUT COULDNT ALWAYS GIVE ME DIRECTIONS ON HOW SHE TAKES THEM. FUROSEMIDE 40MG WAS LAST FILLED 11-18-2019 #30/30DS- I DOCUMENTED THE PAST DUE FILL ON THE MED REC PANTOPRAZOLE 40MG- DIRECTIONS ARE 1 TAB BID HOWEVER PT THINKS SHE TAKES 1 TAB DAILY OTC MEDS: NONE
--- NOTE | 2020-01-17 11:20 | Diagnostic Imaging Report ---
EXAM: RIGHT UPPER QUADRANT ULTRASOUND DATE: January 17, 2020. COMPARISON: CT chest abdomen pelvis January 16, 2020. INDICATION: 54-year-old female, history of gastrointestinal bleed. PROCEDURE: Two-dimensional grayscale and color doppler ultrasound examination of the right upper quadrant is performed. FINDINGS: Liver: The latter liver contours are minimally nodular. There is no demonstrated focal liver lesion. There is a recanalized an abnormally dilated periumbilical vein. The main portal vein is patent with normal directional flow and velocity. The visualized hepatic veins are patent. Bile ducts and gallbladder: There are shadowing gallstones. The gallbladder is mildly distended. There is no pericholecystic fluid. The gallbladder wall measures 0.2 cm. There is no intrahepatic or extrahepatic biliary ductal dilation. The common bile duct measures 0.4 cm. Right kidney: Unremarkable right kidney. No hydronephrosis. The right kidney measures 9.8 cm x 5.5 cm x 4.0 cm. Pancreas: Very limited ultrasound assessment of the pancreas is unremarkable. IMPRESSION: 1. Abnormally dilated recanalized paraumbilical vein suggesting portal hypertension. 2. The liver contours are minimally nodular suggesting cirrhosis. 3. No demonstrated focal liver lesion. 4. Cholelithiasis without specific findings to suggest acute cholecystitis. 5. No biliary ductal dilation. 6. Very limited pancreatic parenchymal assessment on ultrasound is unremarkable. Based on prior CT appearance, correlation with lipase levels is recommended. Dictated by: Dictated on workstation # [id number]
--- NOTE | 2020-01-17 15:40 | Consultation - Surgery ---
History of Present Illness History of Present Illness Patient Consulted On(geeta/time) 01/17/20 11:34 Date Seen by Provider: Jan 17, 2020 Time Seen by Provider: 11:34 History of Present Illness Consult requested by Dr. Ghotra for anemia. Patient is a 54-year-old female admitted for UTI/Covid 19. She states she has been ill for about 1 week. Patient states that she went to the [facility] and received a shot of cortisone which she states that she should not have received because she usually feels very ill with it. Patient also had a biopsies performed as well. Patient states that she was tested for Covid and reports that she was positive. Patient states that soon after that office visit she began developing shortness of breath which worsened over the last 3 days. She states she is also been having multiple diarrhea stools and they were extremely black the last couple days. She has also in last week experience nausea and vomiting. Patient states the diarrhea has slightly improved today. She is feeling a little bit better, she is starting to receive some packed red blood cells. Her hemoglobin dropped down to 6 range. She is tolerating clear liquids today. She had an elevated lactic however with fluids it returned to normal. Denies any fever sweats chills or chest pain at this time. She had a CT scan performed which demonstrated cirrhotic appearance of liver., Cholelithiasis without changes of cholecystitis, some changes around the pancreatic head and a recanalized umbilical vein. Allergies and Home Medications Allergies Coded Allergies: Sulfa (Sulfonamide Antibiotics) (Verified Allergy, Unknown, 07/10/19) Home Medications Ergocalciferol (Vitamin D2) 1,250 Mcg Capsule, 1,250 MCG PO FRI, (Reported) Famotidine 20 Mg Tablet, 20 MG PO DAILY, (Reported) Furosemide 40 Mg Tablet, 40 MG PO DAILY, (Reported) LAST FILLED 11-18-2019 #30/30 DAY SUPPLY Hydroxyzine HCl 25 Mg Tablet, 25 MG PO Q8H PRN for ANXIETY, (Reported) Pantoprazole Sodium 40 Mg Tablet.dr, 40 MG PO DAILY, (Reported) Paroxetine HCl 10 Mg Tablet, 10 MG PO DAILY, (Reported) Spironolactone 100 Mg Tablet, 100 MG PO DAILY, (Reported) Sucralfate 1 Gm Tablet, 1 GM PO QID PRN for ULCERS, (Reported) Patient Home Medication List Home Medication List Reviewed: Yes Past Lqndpmg-Xutxqu-Ewaecx Hx Patient Social History Alcohol Use: Denies Use Recreational Drug Use: No 2nd Hand Smoke Exposure: No Recent Foreign Travel: No Contact w/Someone Who Travel: No Recent Infectious Disease Expo: No Recent Hopitalizations: No Immunizations Up To Date Tetanus Booster (TDap): Unknown Date of Influenza Vaccine: Dec 12, 2019 Seasonal Allergies Seasonal Allergies: Yes Surgeries History of Surgeries: Yes Surgeries: Appendectomy, Oophorectomy Respiratory History of Respiratory Disorde: No Respiratory Disorders: Pneumonia Cardiovascular History of Cardiac Disorders: Yes Cardiac Disorders: Hypertension Neurological History of Neurological Disord: No Reproductive System Hx Reproductive Disorders: No Genitourinary History of Genitourinary Disor: No Gastrointestinal History of Gastrointestinal Di: Yes Gastrointestinal Disorders: Gastroesophageal Reflux, Cirrhosis Musculoskeletal History of Musculoskeletal Dis: No Endocrine History of Endocrine Disorders: No HEENT History of HEENT Disorders: No Cancer History of Cancer: No Psychosocial History of Psychiatric Problem: No Integumentary History of Skin or Integumenta: No Blood Transfusions History of Blood Disorders: Yes (low iron ) Adverse Reaction to a Blood Tr: No Family Medical History Significant Family History: No Pertinent Family Hx Family Medial History: Patient reports no known family medical history. Review of Systems-General Constitutional: No chills, No diaphoresis EENTM: No blurred vision, No double vision Respiratory: dyspnea on exertion, short of breath Cardiovascular: No chest pain, No palpitations Gastrointestinal: diarrhea, melena, nausea, vomiting Genitourinary: No decreased output, No discharge Musculoskeletal: No back pain, No joint pain Skin: No change in color, No change in hair/nails Psychiatric/Neurological: Denies Anxiety, Denies Depressed, Denies Emotional Problems All Other Systems Reviewed Negative Unless Noted: Yes (Negative excepted noted.) Physical Exam-General Problems Physical Exam Vital Signs Vital Signs - First Documented 01/16/20 16:04 Temp 36.1 Pulse 78 Resp 24 B/P (MAP) 101/72 (82) Pulse Ox 100 O2 Delivery Room Air Capillary Refill : Less Than 3 Seconds General Appearance: WD/WN, no apparent distress HEENT: PERRL/EOMI, normal ENT inspection Neck: non-tender, full range of motion Respiratory: chest non-tender, no respiratory distress, no accessory muscle use Cardiovascular: regular rate, rhythm, no JVD Gastrointestinal: non tender, soft, hernia (Umbilical) Rectal: deferred Back: no CVA tenderness, no vertebral tenderness Extremities: normal range of motion, normal inspection Neurologic/Psychiatric: alert, normal mood/affect (Normal mood flat affect), oriented x 3 Skin: normal color, warm/dry Lymphatic: no adenopathy Data Review Labs Laboratory Tests 01/16/20 16:10: White Blood Count 19.7H, Red Blood Count 2.97L, Hemoglobin 9.4L, Hematocrit 30L, Mean Corpuscular Volume 102H, Mean Corpuscular Hemoglobin 32, Mean Corpuscular Hemoglobin Concent 31L, Red Cell Distribution Width 15.3H, Platelet Count 111L, Mean Platelet Volume 12.4H, Immature Granulocyte % (Auto) 1, Neutrophils (%) (Auto) 84H, Lymphocytes (%) (Auto) 7L, Monocytes (%) (Auto) 8, Eosinophils (%) (Auto) 0, Basophils (%) (Auto) 0, Neutrophils # (Auto) 16.5H, Lymphocytes # (Auto) 1.4, Monocytes # (Auto) 1.5H, Eosinophils # (Auto) 0.0, Basophils # (Auto) 0.0, Immature Granulocyte # (Auto) 0.3H, Neutrophils % (Manual) 92, Lymphocytes % (Manual) 4, Monocytes % (Manual) 3, Eosinophils % (Manual) 1, Bl ood Morphology Comment NORMAL, Sodium Level 135, Potassium Level 4.2, Chloride Level 102, Carbon Dioxide Level 17L, Anion Gap 16H, Blood Urea Nitrogen 41H, Creatinine 0.66, Estimat Glomerular Filtration Rate > 60, BUN/Creatinine Ratio 62, Glucose Level 164H, Lactic Acid Level 5.98*H, Calcium Level 9.8, Corrected Calcium 10.6H, Total Bilirubin 1.2H, Aspartate Amino Transf (AST/SGOT) 45H, Alanine Aminotransferase (ALT/SGPT) 30, Alkaline Phosphatase 80, Troponin I < 0.028, C-Reactive Protein High Sensitivity 0.48, Total Protein 6.1L, Albumin 3.0L, Lipase 49, Procalcitonin 0.14H 01/16/20 17:30: Urine Color YELLOW, Urine Clarity CLEAR, Urine pH 7.0, Urine Specific [place] 1.010L, Urine Protein NEGATIVE, Urine Glucose (UA) NEGATIVE, Urine Ketones NEGATIVE, Urine Nitrite NEGATIVE, Urine Bilirubin NEGATIVE, Urine Urobilinogen 0.2, Urine Leukocyte Esterase 1+H, Urine RBC (Auto) 2+H, Urine RBC NONE, Urine WBC 10-25H, Urine Squamous Epithelial Cells 0-2, Urine Crystals NONE, Urine Bacteria TRACE, Urine Casts NONE, Urine Mucus NEGATIVE, Urine Culture Indicated YES, Urine Opiates Screen NEGATIVE, Urine Oxycodone Screen NEGATIVE, Urine Methadone Screen NEGATIVE, Urine Propoxyphene Screen NEGATIVE, Urine Barbiturate s Screen NEGATIVE, Ur Tricyclic Antidepressants Screen NEGATIVE, Urine Phencyclidine Screen NEGATIVE, Urine Amphetamines Screen NEGATIVE, Urine Methamphetamines Screen NEGATIVE, Urine Benzodiazepines Screen NEGATIVE, Urine Cocaine Screen NEGATIVE, Urine Cannabinoids Screen NEGATIVE 01/16/20 18:30: Lactic Acid Level 1.69 01/16/20 20:15: Coronavirus 2019 (JILL) Negative 01/16/20 21:30: 01/17/20 05:20: White Blood Count 8.7, Red Blood Count 2.09L, Hemoglobin 6.6#*L, Hematocrit 21L, Mean Corpuscular Volume 101H, Mean Corpuscular Hemoglobin 32, Mean Corpuscular Hemoglobin Concent 31L, Red Cell Distribution Width 15.5H, Platelet Count 70L, Mean Platelet Volume 12.6H, Immature Granulocyte % (Auto) 1, Neutrophils (%) (Auto) 79H, Lymphocytes (%) (Auto) 11L, Monocytes (%) (Auto) 8, Eosinophils (%) (Auto) 2, Basophils (%) (Auto) 0, Neutrophils # (Auto) 6.9, Lymphocytes # (Auto) 0.9L, Monocytes # (Auto) 0.7, Eosinophils # (Auto) 0.2, Basophils # (Auto) 0.0, Immature Granulocyte # (Auto) 0.0, Sodium Level 137, Potassium Level 3.6, Chloride Level 108H, Carbon Dioxide Level 20L, Anion Gap 9, Blood Urea Nitrogen 29H, Creatinine 0.60, Estimat Glomerular Filtration Rate > 60, BUN/Creatinine Ratio 48, Glucose Level 93, Calcium Level 7.6L, Corrected Calcium 8.9, Total Bilirubin 0.7, Aspartate Amino Transf (AST/SGOT) 29, Alanine Aminotransferase (ALT/SGPT) 22, Alkaline Phosphatase 59, Total Protein 4.5L, Albumin 2.4L Assessment/Plan Assessment/Plan Assessment/Plan Anemia Cholelithiasis Melena Cirrhosis UTI Nausea/vomiting/diarrhea Shortness of breath Patient is a 54-year-old female receiving PRBC currently. She is having dark stools so I suspect upper GI bleed Protonix Clear liquids Follow labs and transfuse PRBC as needed. Antibiotics for UTI No surgical intervention COVID-19 pending Clinical Quality Measures DVT/VTE Risk/Contraindication: Risk Factor Score Per Nursin RFS Level Per Nursing on Admit: 4+=Very High ANDREW WEATHERS DO Jan 17, 2020 15:40
[2020-01-18] VITALS: BP 121/65
[2020-01-18] MEDS: IBUPROFEN 600 MG (MOTRIN) TAB PO PRN ×2 (00:05→13:52)
[2020-01-18 04:00] VITALS: BP 117/66
[2020-01-18] MEDS: PIPERACILLIN/TAZO 4.5 GM/NS 100 ML IV SCH ×6 (04:41→21:29)
[2020-01-18] MEDS: NS IV 1000 ML 1,000 ML IV SCH ×2 (04:41→13:51)
[2020-01-18] MEDS: PANTOPRAZOLE 40 MG (PROTONIX) VIAL IV SCH ×2 (06:14→16:48)
[2020-01-18 07:08] LABS: HEMOGLOBIN 9.5 g/dL (11.5-16.0); MEAN PLATELET VOLUME 11.6 fL (9.0-12.2); WHITE BLOOD COUNT 6.2 10^3/uL (4.3-11.0)
[2020-01-18 07:20] LABS: ALBUMIN 2.7 GM/DL (3.2-4.5); CHLORIDE 108 MMOL/L (98-107); POTASSIUM 2.9 MMOL/L (3.6-5.0); SODIUM 133 MMOL/L (135-145)
[2020-01-18 07:21] LABS: CALCIUM 6.9 MG/DL (8.5-10.1)
[2020-01-18 07:22] LABS: GLUCOSE 93 MG/DL (70-105)
[2020-01-18 07:23] LABS: CARBON DIOXIDE 16 MMOL/L (21-32)
[2020-01-18 07:25] LABS: ALKALINE PHOSPHATASE 64 U/L (40-136)
[2020-01-18 07:26] LABS: CREATININE SERUM 0.53 MG/DL (0.60-1.30); GFR ESTIMATED > 60
[2020-01-18 07:27] LABS: BUN/CREATININE RATIO 23
[2020-01-18 07:29] LABS: ALANINE AMINOTRANSFERASE 32 U/L (0-55)
[2020-01-18 08:00] VITALS: BP 131/62
--- NOTE | 2020-01-18 09:36 | Progress Note - Surgery ---
HERNANDEZ SALAS MED STUDENT 01/18/20 0936: Subjective Date Seen by a Provider: Jan 18, 2020 Time Seen by a Provider: 09:05 Subjective/Events-last exam Pt states she is feeling much better today. Has more energy, no N/V, abdominal pain, or SOB. Notes she is still having frequent BM's that look like "chunks of tar". Has been tolerating clear liquid diet. COVID test came back negative. Had 2 units transfused yesterday and hgb is 9.5 today from 6.6 yesterday. WBC is 6.2. Focused Exam Lactate Level 01/16/20 16:10: Lactic Acid Level 5.98*H 01/16/20 18:30: Lactic Acid Level 1.69 Objective Exam Vital Signs Date Time Temp Pulse Resp B/P (MAP) Pulse Ox O2 Delivery O2 Flow Rate FiO2 01/18/20 04:00 36.5 77 18 117/66 (83) 100 Room Air 01/18/20 00:00 36.4 87 18 121/65 (83) 99 Room Air 01/17/20 20:31 36.8 92 18 124/80 (95) 99 Room Air 01/17/20 20:25 Room Air 01/17/20 16:16 36.8 95 18 122/73 (89) 98 Room Air 01/17/20 15:22 36.3 92 18 102/65 100 Room Air 01/17/20 12:19 36.7 102 16 103/66 100 Room Air 01/17/20 12:03 36.6 94 16 101/63 99 Room Air 01/17/20 12:01 36.6 94 16 101/63 99 01/17/20 12:00 36.9 92 16 93/58 (70) 99 Room Air 01/17/20 09:38 36.9 92 16 93/58 99 Room Air I & O 01/18/20 07:00 Intake Total 3330 ml Output Total 200 ml Balance 3130 ml Capillary Refill : Less Than 3 Seconds General Appearance: No Apparent Distress, Thin HEENT: PERRL/EOMI, Normal ENT Inspection Neck: Normal Inspection, Supple Respiratory: Chest Non Tender, Lungs Clear, Normal Breath Sounds, No Accessory Muscle Use, No Respiratory Distress Cardiovascular: Regular Rate, Rhythm, No Edema, No Murmur Gastrointestinal: non tender, soft; No distended, No guarding, No rebound; hernia (Umbilical) Extremity: Normal Inspection, No Calf Tenderness, No Pedal Edema Neurologic/Psychiatric: Alert, Oriented x3, No Motor/Sensory Deficits, Normal Mood/Affect Skin: Normal Color, Warm/Dry Lymphatic: No Adenopathy Results Lab Laboratory Tests 01/17/20 16:00: Stool Occult Blood Immunoassay POSITIVEH 01/18/20 06:58: White Blood Count 6.2, Red Blood Count 3.03L, Hemoglobin 9.5#L, Hematocrit 29L, Mean Corpuscular Volume 95, Mean Corpuscular Hemoglobin 31, Mean Corpuscular Hemoglobin Concent 33, Red Cell Distribution Width 18.8H, Platelet Count 50L, Mean Platelet Volume 11.6, Sodium Level 133L, Potassium Level 2.9L, Chloride Level 108H, Carbon Dioxide Level 16L, Anion Gap 9, Blood Urea Nitrogen 12, Creatinine 0.53L, Estimat Glomerular Filtration Rate > 60, BUN/Creatinine Ratio 23, Glucose Level 93, Calcium Level 6.9L, Corrected Calcium 7.9L, Total Bilirubi n 1.0, Aspartate Amino Transf (AST/SGOT) 42H, Alanine Aminotransferase (ALT/SGPT) 32, Alkaline Phosphatase 64, Total Protein 5.0L, Albumin 2.7L Assessment/Plan Assessment/Plan Assessment/Plan Anemia Cholelithiasis Melena Cirrhosis UTI Nausea/vomiting/diarrhea Shortness of breath Pt having dark stools so I suspect upper GI bleed Protonix Clear liquids Follow labs and transfuse PRBC as needed. Antibiotics for UTI COVID-19 negative No surgical intervention at this time Clinical Quality Measures DVT/VTE Risk/Contraindication: Risk Factor Score Per Nursin RFS Level Per Nursing on Admit: 4+=Very High ANDREW JENSEN DO 01/18/20 1225: Subjective Subjective/Events-last exam Still with black stools. Hgb responded appropriately to transfusion. No abdominal pain. Denies n/v fever sweats chills shortness of breath or chest pain. On clear diet. Objective Exam General Appearance: No Apparent Distress HEENT: PERRL/EOMI, Normal ENT Inspection Neck: Normal Inspection, Supple Respiratory: Chest Non Tender, No Accessory Muscle Use, No Respiratory Distress Cardiovascular: Regular Rate, Rhythm, No JVD Gastrointestinal: non tender, soft; No distended, No guarding, No rebound; hernia (Umbilical) Extremity: Normal Inspection, No Calf Tenderness Neurologic/Psychiatric: Alert, Oriented x3, No Motor/Sensory Deficits, Normal Mood/Affect Skin: Normal Color, Warm/Dry Lymphatic: No Adenopathy Assessment/Plan Assessment/Plan Assessment/Plan Anemia Cholelithiasis Melena Cirrhosis UTI Nausea/vomiting/diarrhea-improved Shortness of breath-improved Pt having dark stools so I suspect upper GI bleed Protonix Clear liquids Follow labs and transfuse PRBC as needed. Antibiotics for UTI COVID-19 negative No surgical intervention at this time Supervisory-Addendum Brief Verification & Attestation Participated in pt care: history, MDM, physical Personally performed: exam, history, MDM, supervision of care Care discussed with: Medical Student Procedures: n/a Results interpretation: Verified all documentation Verification and Attestation of Medical Student E/M Service A medical student performed and documented this service in my presence. I reviewed and verified all information documented by the medical student and made modifications to such information, when appropriate. I personally performed the physical exam and medical decision making. Andrew Jensen, Jan 18, 2020,12:25 HERNANDEZ SALAS MED STUDENT Jan 18, 2020 09:36 ANDREW JENSEN DO Jan 18, 2020 12:25
[2020-01-18 12:00] VITALS: BP 130/60
--- NOTE | 2020-01-18 12:58 | Progress Note - Hospitalist ---
Subjective HPI/CC On Admission Date Seen by Provider: Jan 18, 2020 Time Seen by Provider: 11:30 CC: Hypoxia with weakness HPI: This is a 54 yoWF clinic patient of [facility] who presented to the ER with hypoxia and weakness. COVID swab taken and pending at time of exam. GIB suspected to Dr Jensen consulted. Repeat labs in morning revealed hgb 6.6 so transfused 2 units of blood. Black stools reported per patient. O2 maintained. Subjective/Events-last exam Hgb better at 9.5 Platelet count 50k IVF maintained Moving around to the bathroom Dr Jensen on board PPI Review of Systems General: Fatigue, Malaise Focused Exam Lactate Level 01/16/20 16:10: Lactic Acid Level 5.98*H 01/16/20 18:30: Lactic Acid Level 1.69 Objective Exam Vital Signs Vital Signs Date Time Temp Pulse Resp B/P (MAP) Pulse Ox O2 Delivery O2 Flow Rate FiO2 01/18/20 12:00 36.0 74 18 130/60 (83) 100 Room Air Capillary Refill : Less Than 3 Seconds General Appearance: No Apparent Distress, WD/WN, Chronically ill, Thin Respiratory: Lungs Clear, Normal Breath Sounds Cardiovascular: Regular Rate, Rhythm Neurologic/Psychiatric: Alert, Oriented x3, No Motor/Sensory Deficits, Normal Mood/Affect Results/Procedures Lab Laboratory Tests 01/18/20 06:58 Patient resulted labs reviewed. Assessment/Plan Assessment and Plan Assess & Plan/Chief Complaint Assessment: GIB Anemia requiring 2 units of blood Cirrhosis Plan: Transfused PPI Dr Jensen consult Diagnosis/Problems Diagnosis/Problems (1) Upper GI bleed (2) UTI (urinary tract infection) Status: Acute (3) Sepsis (4) Cirrhosis (5) Anemia (6) Rectal bleeding Clinical Quality Measures DVT/VTE Risk/Contraindication: Risk Factor Score Per Nursin RFS Level Per Nursing on Admit: 4+=Very High MICHELE CALDERÓN DO Jan 18, 2020 12:58
[2020-01-18 16:19] VITALS: BP 132/73
[2020-01-18 19:31] VITALS: BP 148/72
[2020-01-18] MEDS ORDERED: MELATONIN 10 MG TABLET PO SCH (22:00)
[2020-01-19 00:36] VITALS: BP 123/68
[2020-01-19] MEDS: NS IV 1000 ML 1,000 ML IV SCH ×3 (01:15→13:42)
[2020-01-19 04:00] VITALS: BP 130/80
[2020-01-19] MEDS: PIPERACILLIN/TAZO 4.5 GM/NS 100 ML IV SCH ×4 (06:07→13:43)
[2020-01-19] MEDS: PANTOPRAZOLE 40 MG (PROTONIX) VIAL IV SCH (06:13)
--- NOTE | 2020-01-19 07:26 | Progress Note - Hospitalist ---
Subjective HPI/CC On Admission Date Seen by Provider: Jan 19, 2020 CC: Hypoxia with weakness HPI: This is a 54 yoWF clinic patient of [facility] who presented to the ER with hypoxia and weakness. COVID swab taken and pending at time of exam. GIB suspe cted to Dr Jensen consulted. Repeat labs in morning revealed hgb 6.6 so transfused 2 units of blood. Black stools reported per patient. O2 maintained. Focused Exam Lactate Level 01/16/20 16:10: Lactic Acid Level 5.98*H 01/16/20 18:30: Lactic Acid Level 1.69 Objective Exam Vital Signs Vital Signs Date Time Temp Pulse Resp B/P (MAP) Pulse Ox O2 Delivery O2 Flow Rate FiO2 01/19/20 12:00 36.4 90 20 154/72 (99) 98 Room Air Capillary Refill : Less Than 3 Seconds Results/Procedures Lab Laboratory Tests 01/19/20 07:08 Patient resulted labs reviewed. Assessment/Plan Assessment and Plan Assess & Plan/Chief Complaint Assessment: GIB Anemia requiring 2 units of blood Cirrhosis Plan: Transfused PPI Dr Jensen consult Diagnosis/Problems Diagnosis/Problems (1) Upper GI bleed (2) UTI (urinary tract infection) Status: Acute (3) Sepsis (4) Cirrhosis (5) Anemia (6) Rectal bleeding Clinical Quality Measures DVT/VTE Risk/Contraindication: Risk Factor Score Per Nursin RFS Level Per Nursing on Admit: 4+=Very High MICHELE CALDERÓN DO Jan 19, 2020 07:26
[2020-01-19 07:31] LABS: HEMOGLOBIN 9.4 g/dL (11.5-16.0)
[2020-01-19 07:33] LABS: MEAN PLATELET VOLUME 11.6 fL (9.0-12.2); WHITE BLOOD COUNT 5.2 10^3/uL (4.3-11.0)
[2020-01-19 07:46] LABS: ALBUMIN 2.7 GM/DL (3.2-4.5)
[2020-01-19 07:47] LABS: CHLORIDE 110 MMOL/L (98-107); POTASSIUM 2.6 MMOL/L (3.6-5.0); SODIUM 136 MMOL/L (135-145)
[2020-01-19 07:48] LABS: CALCIUM 6.8 MG/DL (8.5-10.1)
[2020-01-19 07:49] LABS: GLUCOSE 93 MG/DL (70-105); TOTAL PROTEIN 4.8 GM/DL (6.4-8.2)
[2020-01-19 07:50] LABS: CARBON DIOXIDE 16 MMOL/L (21-32)
[2020-01-19 07:51] LABS: BILIRUBIN,TOTAL 0.8 MG/DL (0.1-1.0)
[2020-01-19 07:53] LABS: ALKALINE PHOSPHATASE 75 U/L (40-136); CREATININE SERUM 0.49 MG/DL (0.60-1.30); GFR ESTIMATED > 60
[2020-01-19 07:54] LABS: BUN/CREATININE RATIO 10
[2020-01-19 07:56] LABS: ALANINE AMINOTRANSFERASE 35 U/L (0-55)
[2020-01-19 08:00] VITALS: BP 128/68
[2020-01-19] MEDS: IBUPROFEN 600 MG (MOTRIN) TAB PO PRN (09:23)
--- NOTE | 2020-01-19 10:18 | Progress Note - Surgery ---
HERNANDEZ SALAS MED STUDENT 01/19/20 1018: Subjective Date Seen by a Provider: Jan 19, 2020 Time Seen by a Provider: 09:00 Subjective/Events-last exam Pt states she feels much improved and wants to go home. States her stools are still dark, but not as dark as yesterday. Denies N/V, abdominal pain, CP, or SOB. Doing well with clears and wants her diet to be advanced. Hgb today is 9.4 and WBC is 5.2. Potassium 2.6. Focused Exam Lactate Level 01/16/20 16:10: Lactic Acid Level 5.98*H 01/16/20 18:30: Lactic Acid Level 1.69 Objective Exam Vital Signs Date Time Temp Pulse Resp B/P (MAP) Pulse Ox O2 Delivery O2 Flow Rate FiO2 01/19/20 08:00 Room Air 01/19/20 08:00 36.5 89 20 128/68 (88) 100 Room Air 01/19/20 04:00 36.4 84 20 130/80 (97) 100 Room Air 01/19/20 00:36 36.0 87 20 123/68 (86) 99 Room Air 01/18/20 20:00 Room Air 01/18/20 19:31 36.7 81 18 148/72 (97) 100 Room Air 01/18/20 16:19 36.1 74 18 132/73 (92) 100 Room Air 01/18/20 12:00 36.0 74 18 130/60 (83) 100 Room Air I & O 01/19/20 07:00 Intake Total 4415 ml Balance 4415 ml Capillary Refill : Less Than 3 Seconds General Appearance: No Apparent Distress, WD/WN, Thin HEENT: PERRL/EOMI, Normal ENT Inspection Neck: Normal Inspection, Supple Respiratory: Lungs Clear, Normal Breath Sounds, No Accessory Muscle Use, No Respiratory Distress Cardiovascular: Regular Rate, Rhythm, No Edema, No Murmur Gastrointestinal: non tender, soft; No distended, No guarding, No rebound; hernia (umbilical, soft and reducible) Extremity: Normal Inspection, No Calf Tenderness, No Pedal Edema Neurologic/Psychiatric: Alert, Oriented x3, No Motor/Sensory Deficits, Normal Mood/Affect Skin: Normal Color, Warm/Dry Lymphatic: No Adenopathy Results Lab Laboratory Tests 01/19/20 07:08: White Blood Count 5.2, Red Blood Count 2.94L, Hemoglobin 9.4L, Hematocrit 28L, Mean Corpuscular Volume 94, Mean Corpuscular Hemoglobin 32, Mean Corpuscular Hemoglobin Concent 34, Red Cell Distribution Width 18.5H, Platelet Count 50L, Mean Platelet Volume 11.6, Sodium Level 136, Potassium Level 2.6L, Chloride Level 110H, Carbon Dioxide Level 16L, Anion Gap 10, Blood Urea Nitrogen 5L, Creatinine 0.49L, Estimat Glomerular Filtration Rate > 60, BUN/Creatinine Ratio 10, Glucose Level 93, Calcium Level 6.8L, Corrected Calcium 7.8L, Total Bilirubin 0.8, Aspartate Amino Transf (AST/SGOT) 44H, Alanine Aminotransferase (ALT/SGPT) 35, Alkaline Phosphatase 75, Total Protein 4.8L, Albumin 2.7L Microbiology 01/16/20 Urine Culture - Final, Complete 3 or more isolates Assessment/Plan Assessment/Plan Assessment/Plan Anemia Cholelithiasis Melena Cirrhosis UTI Nausea/vomiting/diarrhea-improved Shortness of breath-improved umbilical hernia hypokalemia Pt having dark stools so I suspect upper GI bleed Protonix Tolerating clear liquids COVID-19 negative No surgical intervention at this time, stable for discharge from a surgical standpoint Pt to follow up with Dr. Mcmanus in clinic since he did her colonoscopy Clinical Quality Measures DVT/VTE Risk/Contraindication: Risk Factor Score Per Nursin RFS Level Per Nursing on Admit: 4+=Very High WEATHERSANDREW YOUNG DO 01/19/20 1522: Subjective Subjective/Events-last exam Patient feeling well and wanting to go home. She is not having abdominal pain. Her hemoglobin is stable. She denies any nausea vomiting fever sweats chills shortness of breath or chest pain. Objective Exam General Appearance: No Apparent Distress, WD/WN HEENT: PERRL/EOMI Neck: Normal Inspection, Supple Respiratory: Chest Non Tender, No Accessory Muscle Use, No Respiratory Distress Cardiovascular: Regular Rate, Rhythm, No Edema, No Murmur Gastrointestinal: non tender, soft; No distended, No guarding, No rebound; hernia (umbilical, soft and reducible) Extremity: Normal Inspection Neurologic/Psychiatric: Alert, Oriented x3, No Motor/Sensory Deficits, Normal Mood/Affect Skin: Normal Color, Warm/Dry Lymphatic: No Adenopathy Assessment/Plan Assessment/Plan Assessment/Plan Anemia-stable suspect upper gi bleed Cholelithiasis Melena Cirrhosis UTI Nausea/vomiting/diarrhea-improved Shortness of breath-improved umbilical hernia hypokalemia stable for dc home, will have follow up with Dr. Mcmanus who did recent Endos copies. Keep on protonix Supervisory-Addendum Brief Verification & Attestation Participated in pt care: history, MDM, physical Personally performed: exam, history, MDM, supervision of care Care discussed with: Medical Student Procedures: n/a Results interpretation: Verified all documentation Verification and Attestation of Medical Student E/M Service A medical student performed and documented this service in my presence. I reviewed and verified all information documented by the medical student and made modifications to such information, when appropriate. I personally performed the physical exam and medical decision making. Andrew Weathers, Jan 19, 2020,15:24 HERNANDEZ SALAS MED STUDENT Jan 19, 2020 10:18 ANDREW WEATHERS DO Jan 19, 2020 15:22
[2020-01-19 12:00] VITALS: BP 154/72
[2020-01-19] MEDS ORDERED: POTA10TA36 PO (12:25)
[2020-01-19] MEDS ORDERED: PANT40TA2 PO (12:25)
--- NOTE | 2020-01-19 12:25 | Discharge Summary ---
Discharge Summary Hospital Course Was the Problem List Reviewed?: Yes Problems/Dx: (1) Upper GI bleed (2) UTI (urinary tract infection) Status: Acute (3) Sepsis (4) Cirrhosis (5) Anemia (6) Rectal bleeding Hospital Course Date of Admission: Jan 16, 2020 at 19:10 Admission Diagnosis : Family Physician/Provider: [facility] Date of Discharge: 01/19/20 Discharge Diagnosis: GIB, Cirrhosis, abnormal UA Hospital Course: Short course after admitted with UTI and melena and anemia. UCx revealed normal ayala so no abx given at DC. Required [address] Jensen consulted and will need EGD as outpatient and patient will be on PPI at time of DC BID and replacing potassium and restart all her outpatient meds Labs and Pending Lab Test: Laboratory Tests 01/19/20 07:08: White Blood Count 5.2, Red Blood Count 2.94L, Hemoglobin 9.4L, Hematocrit 28L, Mean Corpuscular Volume 94, Mean Corpuscular Hemoglobin 32, Mean Corpuscular Hemoglobin Concent 34, Red Cell Distribution Width 18.5H, Platelet Count 50L, Mean Platelet Volume 11.6, Sodium Level 136, Potassium Level 2.6L, Chloride Level 110H, Carbon Dioxide Level 16L, Anion Gap 10, Blood Urea Nitrogen 5L, Creatinine 0.49L, Estimat Glomerular Filtration Rate > 60, BUN/Creatinine Ratio 10, Glucose Level 93, Calcium Level 6.8L, Corrected Calcium 7.8L, Total Bilirubin 0.8, Aspartate Amino Transf (AST/SGOT) 44H, Alanine Aminotransferase (ALT/SGPT) 35, Alkaline Phosphatase 75, Total Protein 4.8L, Albumin 2.7L Microbiology 01/16/20 Urine Culture - Final, Complete 3 or more isolates Home Meds Active Reported Vitamin D2 (Ergocalciferol (Vitamin D2)) 1,250 Mcg Capsule 1,250 Mcg PO FRI Paroxetine HCl 10 Mg Tablet 10 Mg PO DAILY Heartburn Relief (Famotidine) 20 Mg Tablet 20 Mg PO DAILY Hydroxyzine HCl 25 Mg Tablet 25 Mg PO Q8H PRN Aldactone (Spironolactone) 100 Mg Tablet 100 Mg PO DAILY Sucralfate 1 Gm Tablet 1 Gm PO QID PRN Furosemide 40 Mg Tablet 40 Mg PO DAILY LAST FILLED 11-18-2019 #30/30 DAY SUPPLY Pantoprazole Sodium 40 Mg Tablet. 40 Mg PO DAILY Assessment/Pt Instructions [facility] 1 week Discharge Planning: <30 minutes discharge planning Discharge Physical Examination Vital Signs Vital Signs Date Time Temp Pulse Resp B/P (MAP) Pulse Ox O2 Delivery O2 Flow Rate FiO2 01/19/20 12:00 36.4 90 20 154/72 (99) 98 Room Air General Appearance: No Apparent Distress, WD/WN, Chronically ill Respiratory: Lungs Clear Cardiovascular: Regular Rate, Rhythm Allergies: Coded Allergies: Sulfa (Sulfonamide Antibiotics) (Verified Allergy, Unknown, 07/10/19) Discharge Summary Date of Admission Jan 16, 2020 at 19:10 Date of Discharge Discharge Date: Jan 19, 2020 Admission Diagnosis Assessment: GIB Sepsis UTI Cirrhosis Weakness Anemia Plan: Monitor hgb Transfuse PPI Dr Jensen consultation Discharge Diagnosis Assessment: GIB Anemia requiring 2 units of blood Cirrhosis Plan: Transfused PPI Dr Jensen consult (1) Upper GI bleed (2) UTI (urinary tract infection) Status: Acute (3) Sepsis (4) Cirrhosis (5) Anemia (6) Rectal bleeding Clinical Quality Measures DVT/VTE Risk/Contraindication: Risk Factor Score Per Nursin RFS Level Per Nursing on Admit: 4+=Very High MICHELE CALDERÓN DO Jan 19, 2020 12:25
[2020-01-19] MEDS ORDERED: KCL 20 MEQ TAB (K-DUR) PO ONE (12:30)
--- NOTE | 2020-01-19 15:30 | NUR ---
MONTY PARKER demonstrates understanding of discharge instructions and accurately returns instructions upon questioning. Copy of Post-Discharge Instructions and Medication Discharge Instructions given to PTMONTY. MONTY PARKER is/is not able to manage continuing needs after discharge. Patients belongings returned to MONTY PARKER. Skin dry and intact; no breakdown noted. Patient discharged from [facility] on 01/19/20 at 1435. MONTY PARKER left floor via WC, accompanied by STAFF.
--- NOTE | 2020-01-20 08:40 | Physician Query Clarification ---
PQ-Further Specificity Admission/Discharge Admission Date: Jan 16, 2020 at 19:10 Discharge Date: Jan 19, 2020 at 14:35 Dr. Ghotra, The medical record reflects the following clinical scenario: History/Risk Factors: GIB, cirrhosis, anemia, HTN Clinical Findings: T 36.1, P 111, R 24, WBC 19.7, Lactic 5.98 Treatment: IV Ceftriaxone Question: Can you further specify whether or not patient had sepsis after study per the clinical indicators above? Please document a response in the Progress Notes or Discharge Summary. 1. No sepsis after study 2. Yes, patient presented with sepsis 3. Other, with explanation of the clinical findings. 4. Clinically undetermined, no explanation for the clinical findings. PHYSICIAN RESPONSE Can you specify per above: 1 Please remember a lack of response to the above will prompt a phone page by CDI/Coding staff. In responding to this query, please exercise your independent professional judgment. The purpose of this communication is to more accurately reflect the complexity of your patients condition. The fact that a question is asked does not imply that any particular answer is desired or expected. Thank you for your timely response to this clarification. Requestors name: Shmuel THIS PHYSICIAN QUERY FORM IS A PERMANENT PART OF THE MEDICAL RECORD SHMUEL CALIXTO Jan 20, 2020 08:40 MICHELE GHOTRA DO Jan 20, 2020 10:34
--- NOTE | 2020-01-20 08:51 | Physician Query Clarification ---
PQ-Further Specificity Admission/Discharge Admission Date: Jan 16, 2020 at 19:10 Discharge Date: Jan 19, 2020 at 14:35 Dr. Ghotra, The medical record reflects the following clinical scenario: History/Risk Factors: GIB, anemia, HTN, cirrhosis Clinical Findings: Hgb/Hct 6.6/21 Treatment: transfused 2U PRBC"s Question: Can you further specify anemia per the clinical indicators above? Please document a response in the Progress Notes or Discharge Summary. 1. anemia d/t acute blood loss 2. anemia d/t chronic blood loss 3. Other, with explanation of the clinical findings. 4. Clinically undetermined, no explanation for the clinical findings. PHYSICIAN RESPONSE Can you specify per above: 2 Please remember a lack of response to the above will prompt a phone page by CDI/Coding staff. In responding to this query, please exercise your independent professional judgment. The purpose of this communication is to more accurately reflect the complexity of your patients condition. The fact that a question is asked does not imply that any particular answer is desired or expected. Thank you for your timely response to this clarification. Requestors name: Shmuel THIS PHYSICIAN QUERY FORM IS A PERMANENT PART OF THE MEDICAL RECORD SHMUEL CALIXTO Jan 20, 2020 08:51 MICHELE GHOTRA DO Jan 20, 2020 10:34
== END 2020-01-19 14:35 | disposition home or self-care (01) | DRG 379 ==
LOC: EDUNIT# 16:02 → ER 16:04 → 4TH 19:10
PROVIDERS: ADMIT Internal Medicine; ATTEND Internal Medicine
DX: K92.1 Melena (principal); R82.90 Unspecified abnormal findings in urine; D50.0 Iron deficiency anemia secondary to blood loss (chronic); I10 Essential (primary) hypertension; K74.60 Unspecified cirrhosis of liver; K80.20 Calculus of gallbladder without cholecystitis without obstruction; K21.9 Gastro-esophageal reflux disease without esophagitis; E87.6 Hypokalemia; K42.9 Umbilical hernia without obstruction or gangrene; Z20.828 Contact with and (suspected) exposure to other viral communicable diseases; Z87.01 Personal history of pneumonia (recurrent); Z90.722 Acquired absence of ovaries, bilateral; Z90.89 Acquired absence of other organs
CPT/HCPCS: 36415; 71045; 71260; 74177; 76705; 80053; 80306; 81000; 82274; 83605; 83690; 84145; 84484; 85007; 85025; 85027; 86141; 86850; 86900; 86901; 86920; 87088; 87635; 93005

== ENCOUNTER → 2020-03-30 | Outpatient (CLI) | payer OTHER ==
[~2020-03-30] MED LIST changes: +ERGO50006 PO; +FAMO20TA25 PO; +HYDR-700 PO; +PANT40TA2 PO; +PARO10TA3 PO; +POTA10TA36 PO; +SPIR100T PO
--- NOTE | 2020-03-30 08:44 | Diagnostic Imaging Report ---
INDICATION: Alcoholic cirrhosis. PROCEDURE: Ultrasound abdomen complete. TECHNIQUE: Multiple Real-time grayscale images were obtained of the abdomen in various projections. FINDINGS: The liver demonstrates a markedly heterogeneous parenchymal pattern. There is a nodular contour and findings are consistent with cirrhosis. No discrete liver mass is identified. There appear to be multiple varices adjacent to the left lobe of the liver, perhaps owing to recanalization of the umbilical vein. There is dilatation of the portal vein but the portal vein does appear to be patent and shows normal direction of flow. The gallbladder does contain small stones. There is no wall thickening or biliary ductal dilatation identified. The pancreas is unremarkable. The spleen is normal in size at 13.7 cm. The aorta is of normal caliber. The IVC is patent. The kidneys are without calculi or hydronephrosis. There is no ascites. IMPRESSION: 1. Findings suggestive of cirrhosis and portal hypertension. No discrete liver mass is detected. 2. Cholelithiasis without evidence of acute cholecystitis. Dictated by: Dictated on workstation # [id number]
== END ==
LOC: RAD 07:00
PROVIDERS: ATTEND Internal Medicine
DX: K70.30 Alcoholic cirrhosis of liver without ascites (principal); K80.20 Calculus of gallbladder without cholecystitis without obstruction
CPT/HCPCS: 76700

== ENCOUNTER 2020-04-29 09:05 | Emergency (ER) | payer OTHER ==
[~2020-04-29] VITALS: Ht 167.7 cm; Wt 47.6 kg
--- NOTE | 2020-04-29 09:39 | ED Upper Extremity ---
General Chief Complaint: Upper Extremity Stated Complaint: R SHOULDER PAIN Nursing Triage Note: Pt ambulatory to ED. Pt reports getting pulled to ground when walking dog yesterday. Pt reports falling on R shoulder. Pt reports R should pain. There is visible bruising. Pt has limited ROM. Pt reports previous break in same arm. Nursing Sepsis Screen: No Definite Risk Source: patient Exam Limitations: no limitations History of Present Illness Date Seen by Provider: Apr 29, 2020 Time Seen by Provider: 09:20 Initial Comments The patient presents to the ER by private conveyance from home with chief complaint that yesterday while at the dog park she had her dog leash and he got excited about some other dogs and pulled her forward onto her right shoulder. She did not land on outstretched hand. She is not having any pain in her wrist or elbow and has full range of motion there but has limited range of motion of abduction of her right shoulder secondary to pain. She took a tramadol that she had because she had a tooth pulled this week and was able to sleep okay but when she woke up she was still quite sore and stiff in her right shoulder. She has a history of fracture in the right shoulder but no surgery. She is not on blood thinners and did not strike her head nor did she lose consciousness Allergies and Home Medications Allergies Coded Allergies: Sulfa (Sulfonamide Antibiotics) (Verified Allergy, Unknown, 07/10/19) Home Medications Ergocalciferol (Vitamin D2) 1,250 Mcg Capsule, 1,250 MCG PO FRI, (Reported) Famotidine 20 Mg Tablet, 20 MG PO DAILY, (Reported) Furosemide 40 Mg Tablet, 40 MG PO DAILY, (Reported) LAST FILLED 11-18-2019 #30/30 DAY SUPPLY Hydroxyzine HCl 25 Mg Tablet, 25 MG PO Q8H PRN for ANXIETY, (Reported) Pantoprazole Sodium 40 Mg Tablet.dr, 40 MG PO BID Prescribed by: MICHELE CALDERÓN on 01/19/20 122 Paroxetine HCl 10 Mg Tablet, 10 MG PO DAILY, (Reported) Potassium Chloride 10 Meq Tab.er.prt, 10 MEQ PO BID Prescribed by: MICHELE CALDERÓN on 01/19/20 1225 Spironolactone 100 Mg Tablet, 100 MG PO DAILY, (Reported) Sucralfate 1 Gm Tablet, 1 GM PO QID PRN for ULCERS, (Reported) Patient Home Medication List Home Medication List Reviewed: Yes Review of Systems Constitutional: No chills, No diaphoresis EENTM: No ear discharge, No ear pain Respiratory: No cough, No short of breath Cardiovascular: No edema, No palpitations Gastrointestinal: No abdominal pain, No nausea Genitourinary: No discharge, No dysuria : No Musculoskeletal: see HPI; No back pain; joint pain Past Pnjtzex-Uzrrgi-Jfpniz Hx Patient Social History Alcohol Use: Denies Use 2nd Hand Smoke Exposure: No Recent Infectious Disease Expo: No Recent Hopitalizations: No Immunizations Up To Date Tetanus Booster (TDap): Unknown Date of Influenza Vaccine: Dec 12, 2019 Seasonal Allergies Seasonal Allergies: Yes Past Medical History Surgeries: Yes Appendectomy, Oophorectomy Respiratory: No Pneumonia Cardiac: Yes Hypertension Neurological: No Reproductive Disorders: No Genitourinary: No Gastrointestinal: Yes Gastroesophageal Reflux, Cirrhosis Musculoskeletal: No Endocrine: No HEENT: No Cancer: No Psychosocial: No Integumentary: No Blood Disorders: Yes (low iron ) Adverse Reaction/Blood Tranf: No Family Medical History Patient reports no known family medical history. No Pertinent Family Hx Physical Exam Vital Signs Vital Signs - First Documented 04/29/20 09:18 Temp 35.7 Pulse 97 Resp 20 B/P (MAP) 100/66 (77) Pulse Ox 100 O2 Delivery Room Air Capillary Refill : Less Than 3 Seconds Height, Weight, BMI Height: '" Weight: lbs. oz. kg; 16.00 BMI Method: General Appearance: WD/WN, mild distress HEENT: PERRL/EOMI, pharynx normal Neck: non-tender, full range of motion, supple, normal inspection Cardiovascular: normal peripheral pulses, regular rate, rhythm Respiratory: no respiratory distress, no accessory muscle use Back: normal inspection, no vertebral tenderness Shoulder: bone tenderness (Anterior glenohumeral joint and acromioclavicular joint right side); No deformity; ecchymosis (Right shoulder), limited ROM (Limited abduction to about 20 degrees secondary to pain in the right shoulder), pain, swelling Elbow/Forearm: normal inspection, non-tender, no evidence of injury, normal ROM, Right Wrist: Yes normal inspection, Yes non-tender, Yes no evidence of injury, Yes normal ROM Hand: normal inspection, non-tender, no evidence of injury, normal ROM, Right Neurologic/Tendon: normal sensation, normal motor functions, normal tendon functions, responds to pain, no evidence tendon injury Neurologic/Psychiatric: alert, normal mood/affect, oriented x 3 Skin: ecchymosis Progress/Results/Core Measures Results/Orders My Orders Orders - GARRY UP Shoulder, Right, 3 Views (04/29/20 09:33) Vital Signs/I&O 04/29/20 09:18 Temp 35.7 Pulse 97 Resp 20 B/P (MAP) 100/66 (77) Pulse Ox 100 O2 Delivery Room Air Blood Pressure Mean: 77 Progress Progress Note : Time: 09:45 Progress Note Ice pack and plain films of the right shoulder. She brought her tramadol and said she would take it if she needed it. Diagnostic Imaging Diagonstic Imaging: Xray Plain Films/CT/US/NM/MRI: other (Right shoulder) Comments NAME: MONTY PARKER MED REC#: [id number] PT STATUS: REG ER : 1965 PHYSICIAN: GARRY UP MD ADMIT DATE: 04/29/20/ER Draft Date of Exam:04/29/20 SHOULDER, RIGHT, 3 VIEWS INDICATION: One day post fall, landing on right shoulder. History of fracture with pain in the posterior right shoulder with limited range of motion. TECHNIQUE: Four views of the right shoulder. CORRELATION STUDY: None. FINDINGS: There is a fracture involving the distal clavicle. The distal component is displaced superiorly approximately half the width of the bone. Additionally, there is abnormal widening at the acromioclavicular joint. There is deformity about the humeral head and neck, most pronounced along its medial aspect. A definitive acute fracture line is not visualized and this may reflect a more remote or previous injury. IMPRESSION: 1. Mildly displaced fracture of the distal right clavicle. There is questioned sclerosis; however, the age of this is somewhat indeterminate. There is also abnormal widening at the acromioclavicular joint. 2. Deformity about the humeral head and neck with age somewhat indeterminate but favors a probable more remote fracture. 3. If further evaluation is desired, CT imaging would likely be of additional diagnostic utility. Dictated on workstation # [id number] Dict: 04/29/20 1001 Trans: 04/29/20 1006 [id number] Interpreted by: MERNA LOUISE DO Electronically signed by: Reviewed: Reviewed by Me Departure Impression Primary Impression: Closed right clavicular fracture Qualified Codes: S42.031A - Displaced fracture of lateral end of right clavicle, initial encounter for closed fracture Disposition: HOME, SELF-CARE Condition: Stable Departure-Patient Inst. Decision time for Depature: 10:37 Referrals: [facility] (PCP/Family) Primary Care Physician FELICE BARROSO MD Patient Instructions: Clavicle Fracture (DC) Add. Discharge Instructions: Ice 20 minutes on every 2 hours while awake for the next 2 to 3 days to reduce swelling and pain related to your clavicle fracture. Keep the sling on to immobilize your shoulder to reduce pain. Sometime this week or next follow-up with the orthopedic surgeon. You can call Dr. Barroso at his office for an appointment. You may continue to take tramadol 1 tablet every 6 hours as necessary for breakthrough pain not treated by Tylenol 1000 mg every 8 hours as needed. All discharge instructions reviewed with patient and/or family. Voiced understanding. Scripts Tramadol HCl (Tramadol HCl) 50 Mg Tablet 50 MG PO Q6H PRN for PAIN, #15 TAB 0 Refills Prov: GARRY UP 04/29/20 Copy Copies To 1: FELICE BARROSO MD, TITUS J Apr 29, 2020 09:39
--- NOTE | 2020-04-29 10:06 | Diagnostic Imaging Report ---
INDICATION: One day post fall, landing on right shoulder. History of fracture with pain in the posterior right shoulder with limited range of motion. TECHNIQUE: Four views of the right shoulder. CORRELATION STUDY: None. FINDINGS: There is a fracture involving the distal clavicle. The distal component is displaced superiorly approximately half the width of the bone. Additionally, there is abnormal widening at the acromioclavicular joint. There is deformity about the humeral head and neck, most pronounced along its medial aspect. A definitive acute fracture line is not visualized and this may reflect a more remote or previous injury. IMPRESSION: 1. Mildly displaced fracture of the distal right clavicle. There is questioned sclerosis; however, the age of this is somewhat indeterminate. There is also abnormal widening at the acromioclavicular joint. 2. Deformity about the humeral head and neck with age somewhat indeterminate but favors a probable more remote fracture. 3. If further evaluation is desired, CT imaging would likely be of additional diagnostic utility. Dictated by: Dictated on workstation # [id number]
[2020-04-29 10:45] VITALS: BP 100/66
[2020-04-29] MEDS ORDERED: TRM50T PO (10:50)
== END 2020-04-29 10:57 | disposition home or self-care (01) ==
LOC: EDUNIT# 09:05 → ER 09:07
DX: S42.031A Displaced fracture of lateral end of right clavicle, initial encounter for closed fracture (principal); K21.9 Gastro-esophageal reflux disease without esophagitis; Z88.2 Allergy status to sulfonamides; W54.1XXA Struck by dog, initial encounter
CPT/HCPCS: 73030; 99283; A4565

== ENCOUNTER → 2020-09-30 | Outpatient (CLI) | payer OTHER ==
[~2020-09-30] MED LIST changes: +ERGO1250 PO; -ERGO50006 PO; +TRM50T PO
--- NOTE | 2020-10-01 08:35 | Diagnostic Imaging Report ---
Indication: Routine screening. No prior mammograms are available for comparison. 2-D and 3-D bilateral screening mammography was performed with CAD. Both breasts are heterogeneously dense, limiting the sensitivity of mammography. No mass or malignant-appearing microcalcifications are seen. Axillae are unremarkable. IMPRESSION: BI-RADS Category 1 No mammographic features suspicious for malignancy are identified. ACR BI-RADS Category 1: Negative. Result letter will be mailed to the patient. Note: At least 10% of breast cancer is not imaged by mammography. Dictated by: Dictated on workstation # [id number]
== END ==
LOC: RAD 14:45
PROVIDERS: ATTEND Nurse Practitioner Family
DX: Z12.31 Encounter for screening mammogram for malignant neoplasm of breast (principal)
CPT/HCPCS: 77063; 77067

== ENCOUNTER → 2020-10-27 | Outpatient (CLI) | payer OTHER ==
[2020-10-27 11:14] LABS: BASOPHILS % (AUTO) 2 % (0-10)
[2020-10-27 11:16] LABS: EOSINOPHILS % (AUTO) 1 % (0-10); HEMATOCRIT 33 % (35-52); HEMOGLOBIN 9.7 g/dL (11.5-16.0); LYMPHOCYTES # (AUTO) 0.6 10^3/uL (1.0-4.0); LYMPHOCYTES % (AUTO) 31 % (12-44); MEAN CORPUSCULAR HEMOGLOBIN 27 pg (25-34); MEAN CORPUSCULAR HGB CONC 30 g/dL (32-36); MEAN CORPUSCULAR VOLUME 90 fL (80-99); MEAN PLATELET VOLUME 12.6 fL (9.0-12.2); MONOCYTES # (AUTO) 0.3 10^3/uL (0.0-1.0); MONOCYTES % (AUTO) 15 % (0-12); NEUTROPHILS % (AUTO) 52 % (42-75); PLATELET COUNT 59 10^3/uL (130-400); WHITE BLOOD COUNT 1.9 10^3/uL (4.3-11.0)
[2020-10-27 11:24] LABS: INR 1.1 (0.8-1.4); PROTHROMBIN TIME PATIENT 14.7 SEC (12.2-14.7)
[2020-10-27 11:30] LABS: ALBUMIN 3.8 GM/DL (3.2-4.5); BILIRUBIN,TOTAL 0.7 MG/DL (0.1-1.0); CALCIUM 9.2 MG/DL (8.5-10.1); CREATININE SERUM 0.77 MG/DL (0.60-1.30); POTASSIUM 3.8 MMOL/L (3.6-5.0); TOTAL PROTEIN 7.5 GM/DL (6.4-8.2)
--- NOTE | 2020-10-27 14:04 | Diagnostic Imaging Report ---
INDICATION: CIRRHOSIS TECHNIQUE: Multiple real-time bloom scale sonographic images of the abdomen. CORRELATION STUDY: None FINDINGS: LIVER: Heterogeneous echotexture along with a nodular contour within the visualized portions of the liver. Liver length 15.7 cm. There is normal, hepatopedal direction of flow within the main portal vein. Main portal vein however appears to be dilated. There is presence of a recanalized umbilical vein. GALLBLADDER: Multiple shadowing gallstones are present. No bile duct dilatation. COMMON BILE DUCT: Nondilated at 0.3 cm. PANCREAS: Limited in visualization. The visualized portions appearing heterogeneous. SPLEEN: Enlarged at 13.7 x 6.8 x 11.8 cm. ABDOMINAL AORTA: Unremarkable. INFERIOR VENA CAVA: Limited in visualization. RIGHT KIDNEY: 8.5 x 6.0 x 5.3 cm. Unremarkable. LEFT KIDNEY: 9.9 x 3.8 x 4.5 cm. Unremarkable. OTHER: None. IMPRESSION: 1. Heterogeneous appearance about the liver parenchyma compatible with underlying cirrhosis. No definitive focal lesion. 2. Normal direction of flow with mild dilatation of the portal vein but is present. Splenomegaly. Suggesting portal systemic hypertension. 3. Cholelithiasis. Dictated by: Dictated on workstation # [id number]
== END ==
LOC: RAD 09:38
PROVIDERS: ATTEND Nurse Practitioner Adult Health
DX: K70.30 Alcoholic cirrhosis of liver without ascites (principal); R16.1 Splenomegaly, not elsewhere classified; K80.20 Calculus of gallbladder without cholecystitis without obstruction
CPT/HCPCS: 36415; 76700; 80053; 82105; 82306; 84590; 85025; 85610

== ENCOUNTER 2021-03-09 00:05 | Emergency (ER) | payer OTHER ==
[~2021-03-09] VITALS: Ht 167.7 cm; Wt 49.9 kg
[2021-03-09 00:05] VITALS: BP 132/76
[~2021-03-09 00:05] MED LIST changes: -POTA10TA36 PO; +POTA10TA37 PO
--- OUTSIDE RECORDS SUMMARY | 2021-03-09 00:11 | XMS REPORT | Clinical Summary ---
Author Author [facility] Organization [facility] Address Unknown Phone Unavailable Care Team Providers Care Nursing Unit Clerk Name Role Phone Nai Schmitz MD PCP Source Comments Some departments are not documenting in the electronic medical record. If you d o not see the information that you expected, contact Release of Information in [facility] Information Management department at [phone] for further assistan ce in locating additional records.[facility] Allergies Comments Active Allergy Reactions Severity Noted Date Severe fluid on abdomen area Cortisone SEE COMMENTS Low 11/03/2020 Sulfa (Sulfonamide ANAPHYLAXIS High 10/14/2019 Antibiotics) Medications End Date Status Medication Sig Dispensed Refills Start Date Active spironolactone Take 100 mg 0 (ALDACTONE) 100 mg tablet by mouth 0 daily. Active furosemide (LASIX) 40 mg Take 20 mg by 0 09/18 tablet mouth daily. [address] Take 40 mg by 0 (PROTONIX) 40 mg tablet mouth twice 0 daily. Active Problems Problem Noted Date Alcoholic cirrhosis of liver without ascites 021 Alcohol problem drinking 04/30/2020 Social History Date Tobacco Use Types Packs/Day Years Used Never Smoker Smokeless Tobacco: Never Used Comments Alcohol Use Standard Drinks/Week Yes 0 (1 standard drink = 0.6 o z pure alcohol) Sex Assigned at Date Recorded Female 11/02/2020 9:40 AM CDT Last Filed Vital Signs Reading Time Taken Comments Vital Sign 112/61 11/07/2019 1:26 PM CDT per pt. Blood Pressure 76 11/07/2019 1:26 PM CDT per pt. Pulse 36.2 C (97.2 F) 11/07/2019 1:26 PM CDT per pt. Temperature 20 10/14/2019 11:16 AM CDT Respiratory Rate 98% 11/07/2019 1:26 PM CDT per pt. Oxygen Saturation - - Inhaled Oxygen Concentration 49 kg (108 lb) 11/07/2019 1:26 PM CDT per pt. Weight 167.6 cm (5' 6") 11/07/2019 1:26 PM CDT per pt. Height 17.43 11/07/2019 1:26 PM CDT Body Mass Index Plan of Treatment Health Maintenance Due Date Last Done Comments HIV SCREENING 1980 DTAP/TDAP VACCINES (1 - 07/01/1983 Tdap) HEPATITIS C SCREENING 07/01/1983 PHYSICAL (COMPREHENSIVE) 07/01/1983 EXAM CERVICAL CANCER SCREENING 1986 BREAST CANCER SCREENING 2005 COLORECTAL CANCER 07/01/2015 SCREENING SHINGLES RECOMBINANT 07/01/2015 VACCINE (1 of 2) INFLUENZA VACCINE 09/20/2020 Results Not on filefrom Last 3 Months Insurance Type Payer Benefit Subscriber ID Effective Phone Address Plan / Dates Group BETH CAMPOS [id number] 2019-P [phone] [address] [place] [address] Advance Directives Patient [employer] Explanation Type Date Recorded Advance Directive/DPOA Care Teams Start Date End Date Nursing Unit Clerk Relationship Specialty 10/14/19 Nai Schmitz MD PCP - General Internal [address] [place] [id number]
--- NOTE | 2021-03-09 00:26 | ED GU-Female ---
General Stated Complaint: VAG BLEEDING Source: patient, EMS Exam Limitations: no limitations History of Present Illness Date Seen by Provider: Mar 09, 2021 Time Seen by Provider: 00:05 Initial Comments 55-year-old patient presents to the emergency room by ambulance chief complaint vaginal bleeding. Patient states onset of bleeding around 9 PM tonight. She denies sexual activity or foreign objects inserted into the vagina. She appears acutely agitated, very concerned about her vaginal bleeding, constantly removing the blankets to show us the blood. She refuses to stay covered. She is slightly tachycardic, heart rate 107. Blood pressure is good. She seems intoxicated on some sort of drug or alcohol. Wearing sunglasses in the room states that she has problems with her eyes. Difficult to obtain a history from her as she will not tell us her medical history other than to say that she got "an injured liver from Pepcid". She cannot recall her pharmacy. She is slow to answer questions. Patient reportedly told EMS that she had had a hysterectomy but told us that she had 1 ovary removed as well as an appendectomy. Review of the medical record shows the patient to have a history of alcoholic cirrhosis of the liver. Patient states that she does not smoke cigarettes, use illicit drugs or drink alcohol now. Timing/Duration: this evening (9 PM) Severity/Quality: moderate Activities at Onset: none Sexual [place] History: not active Associated Symptoms: denies symptoms Allergies and Home Medications Allergies Coded Allergies: Sulfa (Sulfonamide Antibiotics) (Verified Allergy, Unknown, 07/10/19) Patient Home Medication List Home Medication List Reviewed: Yes Adalimumab (Humira) 40 Mg/0.4 Ml Syringekit, 40 MG SQ EVERY 2 WEEKS, (Reported) Entered as Reported by: PRO SANTOS on 03/10/21 1021 Alendronate Sodium (Alendronate Sodium) 10 Mg Tablet, 10 MG PO DAILY, (Reported) Entered as Reported by: PRO SANTOS on 03/10/21 1021 Furosemide (Furosemide) 40 Mg Tablet, 40 MG PO DAILY, (Reported) Entered as Reported by: PRO SANTOS on 03/10/21 1021 Hydroxyzine HCl (Hydroxyzine HCl) 25 Mg Tablet, 25 MG PO HS, (Reported) Entered as Reported by: PRO SANTOS on 03/10/21 1021 Lactulose (Lactulose) 10 Gm/15 Ml Solution, 15 ML PO DAILY, (Reported) Entered as Reported by: PRO SANTOS on 03/10/21 1021 Loratadine (Loratadine) 10 Mg Tablet, 10 MG PO DAILY, (Reported) Entered as Reported by: PRO SANTOS on 03/10/21 1021 Megestrol Acetate (Megestrol Acetate) 40 Mg Tablet, 40 MG PO BID Prescribed by: MICHELE CALDERÓN on 03/10/21 1044 Melatonin (Melatonin) 10 Mg Tablet, 10 MG PO HS, (Reported) Entered as Reported by: PRO SANTOS on 03/10/21 1021 Nitrofurantoin Monohyd/M-Cryst (Macrobid 100 mg Capsule) 100 Mg Capsule, 1 TAB PO BID Prescribed by: MICHELE CALDERÓN on 03/10/21 1044 Pantoprazole Sodium (Pantoprazole Sodium) 40 Mg Tablet.dr, 40 MG PO BID, (Reported) Entered as Reported by: PRO SANTOS on 03/10/21 1021 Sennosides (Ex-Lax) 15 Mg Tab.chew, 15 MG PO HS, (Reported) Entered as Reported by: PRO SANTOS on 03/10/21 1021 Spironolactone (Spironolactone) 100 Mg Tablet, 100 MG PO DAILY, (Reported) Entered as Reported by: PRO SANTOS on 03/10/21 1021 Vitamin B Complex (B Complex) 1 Each Tablet, 1 EACH PO DAILY Prescribed by: MICHELE CALDERÓN on 03/10/21 1044 Discontinued Medications Ergocalciferol (Vitamin D2) (Vitamin D2) 1,250 Mcg Capsule, 1,250 MCG PO FRI, (Reported) Discontinued Reason: No Longer Taking Entered as Reported by: PRO SANTOS on 01/17/20 1049 Famotidine (Heartburn Relief) 20 Mg Tablet, 20 MG PO DAILY, (Reported) Discontinued Reason: No Longer Taking Entered as Reported by: PRO SANTOS on 01/17/20 1049 Furosemide (Furosemide) 40 Mg Tablet, 40 MG PO DAILY, (Reported) Discontinued Reason: No Longer Taking Entered as Reported by: DOYLE MCCALL on 11/07/19 1232 Hydroxyzine HCl (Hydroxyzine HCl) 25 Mg Tablet, 25 MG PO Q8H PRN for ANXIETY, (Reported) Discontinued Reason: No Longer Taking Entered as Reported by: PRO SANTOS on 01/17/20 1049 Nitrofurantoin Monohyd/M-Cryst (Macrobid 100 mg Capsule) 100 Mg Capsule, 1 TAB PO BID Discontinued Reason: No Longer Taking Prescribed by: ERIN WOODS on 03/09/21 0150 Pantoprazole Sodium (Protonix) 40 Mg Tablet.dr, 40 MG PO BID Discontinued Reason: No Longer Taking Prescribed by: MICHELE CALDERÓN on 01/19/20 1225 Paroxetine HCl (Paroxetine HCl) 10 Mg Tablet, 10 MG PO DAILY, (Reported) Discontinued Reason: No Longer Taking Entered as Reported by: PRO SANTOS on 01/17/20 1049 Potassium Chloride (Potassium Chloride) 10 Meq Tab.er.prt, 10 MEQ PO BID Discontinued Reason: No Longer Taking Prescribed by: MICHELE CALDERÓN on 01/19/20 1225 Spironolactone (Aldactone) 100 Mg Tablet, 100 MG PO DAILY, (Reported) Discontinued Reason: No Longer Taking Entered as Reported by: PRO SANTOS on 01/17/20 1049 Sucralfate (Sucralfate) 1 Gm Tablet, 1 GM PO QID PRN for ULCERS, (Reported) Discontinued Reason: No Longer Taking Entered as Reported by: DOYLE MCCALL on 11/07/19 1232 Tramadol HCl (Tramadol HCl) 50 Mg Tablet, 50 MG PO Q6H PRN for PAIN Discontinued Reason: No Longer Taking Prescribed by: GARRY UP on 04/29/20 1051 Review of Systems Review of Systems Constitutional: see HPI Genitourinary: other (Vaginal bleeding) Review of systems difficult to obtain secondary to the patient's degree of agitation /inability to focus. Past [id number]-[id number] Hx Immunizations Up To Date Tetanus Booster (TDap): Unknown Seasonal Allergies Seasonal Allergies: Yes Past Medical History Surgeries: Yes Appendectomy, Oophorectomy Respiratory: No Pneumonia Cardiac: Yes Hypertension Neurological: No Reproductive Disorders: No Genitourinary: No Gastrointestinal: Yes Gastroesophageal Reflux, Cirrhosis Musculoskeletal: No Endocrine: No HEENT: No Cancer: No Psychosocial: No Integumentary: No Blood Disorders: Yes (low iron ) Adverse Reaction/Blood Tranf: No Family Medical History Patient reports no known family medical history. No Pertinent Family Hx Physical Exam Vital Signs Vital Signs - First Documented 03/09/21 00:05 Temp 36.3 Pulse 107 Resp 20 B/P (MAP) 132/76 (94) Pulse Ox 97 O2 Delivery Room Air Capillary Refill : Height, Weight, BMI Height: '" Weight: lbs. oz. kg; 16.00 BMI Method: General Appearance: WD/WN, moderate distress (Agitated, all over the bed, appears to be on an intoxicant) HEENT: PERRL/EOMI, other (Conjunctivae appear pink) Neck: full range of motion Cardiovascular: regular rate, rhythm, tachycardia (107) Gastrointestinal: normal bowel sounds, non tender, soft, no organomegaly Pelvic: normal external exam, vaginal bleeding (small clot in vault; no significant bleeding from the cervix, blood is suctioned from the vault and cervix observed for several minutes - no pooling noted, just a small ooze. cervix is well visualized; non tender, no CMT; i was unable to palpate anything that feels like uterus ?previsous hysterectomy? no adnexal tenderness appreciated - however the patient was extremely agitated during the entiriety of the exam, moving backward off the pelvic pillow.) Extremities: normal range of motion, non-tender, normal inspection, no pedal ed kathryn, no calf tenderness, normal capillary refill Neurologic/Psychiatric: alert, disoriented x 3 (Disoriented to location) Skin: normal color (skin is very brown ? "fake jade" vs [place]'s ?), warm/dry Progress/Results/Core Measures Suspected Sepsis SIRS Temperature: Pulse: Respiratory Rate: Blood Pressure / Mean: Results/Orders Lab Results My Orders Vital Signs/I&O Capillary Refill : Progress Note : Time: 01:42 Progress Note Patient reassessed, resting comfortably, no distress other than preoccupation with the vaginal bleeding that is persistent. Patient's hemoglobin is eight. Belly exam is unremarkable. Her platelets are lower than they have been in the low forties. Urine is concerning for infection we will put her on some antibiotics, Macrobid. I also talked with her about her alcohol level this evening. She is in complete denial of this. Actually tells me that she does not have cirrhosis she is just being monitored for liver disease". I advised her that I would give her an outpatient order for a pelvic ultrasound to further investigate why she is having bleeding. She will be given contact information for the is support analyst on-call, Dr. Ovalles. Return precautions. All questions are sought and answered. Departure Impression Primary Impression: Post-menopausal bleeding Additional Impressions: UTI (urinary tract infection) Qualified Codes: N30.01 - Acute cystitis with hematuria Alcohol intoxication Qualified Codes: F10.921 - Alcohol use, unspecified with intoxication delirium History of cirrhosis of liver Disposition: HOME, SELF-CARE Condition: Stable Departure-Patient Inst. Decision time for Depature: 01:44 Referrals: [facility] (PCP/Family) Primary Care Physician SWAPNIL OVALLES DO Patient Instructions: Bleeding After Menopause, Urinary Tract Infection, Adult (DC) Add. Discharge Instructions: You can take over the counter Ibuprofen 2-3 pills (400-600mg) every 8 hours for abdominal cramping. This may slow down your bleeding. I have given you an out-patient order to get a PELVIC ULTRASOUND, call [phone] tomorrow morning to get this scheduled. You will need to follow up this week with the is support analyst, I have added Dr Ovalles's name and contact information to your paperwork. Please call tomorrow for a follow up appoint ment. If you have worse bleeding, or a passing out spell, you need to come back to the ER for re-evaluation. You can also call your primary provider at [facility] for follow up this week. You should not drink alcohol with liver disease. Please avoid tylenol products. I have sent a prescription for antibiotics for your urinary tract infection. Copy Copies To 1: DYAN SMITH DO Copies To 2: SWAPNIL OVALLES KATHRYN M MD Mar 09, 2021 00:25
[2021-03-09 00:46] LABS: BASOPHILS # (AUTO) 0.1 10^3/uL (0.0-0.1); BASOPHILS % (AUTO) 2 % (0-10); HEMATOCRIT 27 % (35-52)
[2021-03-09 00:48] LABS: EOSINOPHILS # (AUTO) 0.1 10^3/uL (0.0-0.3); EOSINOPHILS % (AUTO) 1 % (0-10); LYMPHOCYTES # (AUTO) 1.1 10^3/uL (1.0-4.0); LYMPHOCYTES % (AUTO) 22 % (12-44); MEAN CORPUSCULAR HEMOGLOBIN 24 pg (25-34); MEAN CORPUSCULAR HGB CONC 29 g/dL (32-36); MEAN CORPUSCULAR VOLUME 82 fL (80-99); MONOCYTES # (AUTO) 0.6 10^3/uL (0.0-1.0); MONOCYTES % (AUTO) 12 % (0-12); NEUTROPHILS % (AUTO) 63 % (42-75); PLATELET COUNT 43 10^3/uL (130-400); WHITE BLOOD COUNT 4.9 10^3/uL (4.3-11.0)
[2021-03-09 00:51] LABS: BILIRUBIN,URINE NEGATIVE (NEGATIVE); CLARITY,URINE CLEAR; COLOR,URINE YELLOW; GLUCOSE, URINE (UA) NEGATIVE (NEGATIVE); KETONES,URINE NEGATIVE (NEGATIVE); LEUKOCYTE ESTERASE ,URINE 3+ (NEGATIVE); NITRITE,URINE NEGATIVE (NEGATIVE); PH,URINE 6.5 (5-9); PROTEIN,URINE NEGATIVE (NEGATIVE)
[2021-03-09 00:51] LABS: ALBUMIN 3.2 GM/DL (3.2-4.5); POTASSIUM 3.6 MMOL/L (3.6-5.0)
[2021-03-09 00:52] LABS: CALCIUM 7.8 MG/DL (8.5-10.1)
[2021-03-09 00:53] LABS: TOTAL PROTEIN 7.3 GM/DL (6.4-8.2)
[2021-03-09 00:55] LABS: BILIRUBIN,TOTAL 1.5 MG/DL (0.1-1.0)
[2021-03-09 00:57] LABS: CREATININE SERUM 0.65 MG/DL (0.60-1.30)
[2021-03-09 01:08] LABS: BACTERIA,URINE FEW /HPF; SQUAMOUS EPITHELIAL CELL,UR 0-2 /HPF; WBC,URINE 50-100 /HPF
[2021-03-09 01:15] LABS: AMPHETAMINE SCREEN, URINE NEGATIVE (NEGATIVE); BARBITURATE SCREEN URINE NEGATIVE (NEGATIVE); BENZODIAZEPINES SCREEN URINE NEGATIVE (NEGATIVE); CANNABINOID SCREEN, URINE NEGATIVE (NEGATIVE); COCAINE SCREEN URINE NEGATIVE (NEGATIVE); METHADONE STAT NEGATIVE (NEGATIVE); METHAMPHETAMINE SCREEN URINE S NEGATIVE (NEGATIVE); OPIATE SCREEN URINE NEGATIVE (NEGATIVE); OXYCODONE STAT NEGATIVE (NEGATIVE); PROPOXYPHENE STAT NEGATIVE (NEGATIVE); TRICYCLIC ANTIDEPRESSANTS SCRE NEGATIVE (NEGATIVE)
[2021-03-09] MEDS ORDERED: NITR-65 PO (01:50)
[2021-03-10] MEDS ORDERED: FURO40TA4 PO (10:21)
[2021-03-10] MEDS ORDERED: SENN15TA5 PO (10:21)
[2021-03-10] MEDS ORDERED: LORA10TA7 PO (10:21)
[2021-03-10] MEDS ORDERED: SPIR100T4 PO (10:21)
[2021-03-10] MEDS ORDERED: ALEN10TA8 PO (10:21)
[2021-03-10] MEDS ORDERED: ADAL40SY SQ (10:21)
[2021-03-10] MEDS ORDERED: PANT40TA52 PO (10:21)
[2021-03-10] MEDS ORDERED: HYDR-700 PO (10:21)
[2021-03-10] MEDS ORDERED: MELA10TA2 PO (10:21)
[2021-03-10] MEDS ORDERED: LACT10SO27 PO (10:21)
[2021-03-10] MEDS ORDERED: VITA-189 PO (10:44)
[2021-03-10] MEDS ORDERED: MEGE40TA5 PO (10:44)
[2021-03-10] MEDS ORDERED: NITR-65 PO (10:44)
== END 2021-03-09 02:55 | disposition home or self-care (01) ==
LOC: EDUNIT# 00:05 → ER 00:07
DX: N95.0 Postmenopausal bleeding (principal); N39.0 Urinary tract infection, site not specified; F10.129 Alcohol abuse with intoxication, unspecified; I10 Essential (primary) hypertension; K21.9 Gastro-esophageal reflux disease without esophagitis
CPT/HCPCS: 80053; 80306; 81000; 84703; 85025; 87077; 87088; 87186; 99283; G0480; 36415; 80320

== ENCOUNTER 2021-03-09 13:46 | Inpatient (IN) | payer OTHER ==
[2021-03-09] VITALS (12 sets, daily range): BP systolic 82–137; BP diastolic 50–74
[~2021-03-09] VITALS: Ht 167.7 cm; Wt 50.0 kg
[~2021-03-09 13:46] MED LIST changes: +NITR-65 PO
[2021-03-09 14:07] LABS: MONOCYTES # (AUTO) 0.5 10^3/uL (0.0-1.0)
[2021-03-09 14:09] LABS: BASOPHILS # (AUTO) 0.1 10^3/uL (0.0-0.1); BASOPHILS % (AUTO) 2 % (0-10); EOSINOPHILS % (AUTO) 1 % (0-10); LYMPHOCYTES # (AUTO) 1.1 10^3/uL (1.0-4.0); LYMPHOCYTES % (AUTO) 27 % (12-44); MEAN CORPUSCULAR HEMOGLOBIN 24 pg (25-34); MEAN CORPUSCULAR HGB CONC 29 g/dL (32-36); MEAN CORPUSCULAR VOLUME 83 fL (80-99); MEAN PLATELET VOLUME 11.6 fL (9.0-12.2); MONOCYTES % (AUTO) 11 % (0-12); NEUTROPHILS # (AUTO) 2.4 10^3/uL (1.8-7.8); NEUTROPHILS % (AUTO) 59 % (42-75); WHITE BLOOD COUNT 4.1 10^3/uL (4.3-11.0)
[2021-03-09 14:10] LABS: HEMATOCRIT 20 % (35-52); HEMOGLOBIN 5.8 g/dL (11.5-16.0); PLATELET COUNT 35 10^3/uL (130-400)
[2021-03-09 14:15] LABS: INR 1.5 (0.8-1.4); PROTHROMBIN TIME PATIENT 18.6 SEC (12.2-14.7)
[2021-03-09] MEDS ORDERED: TRANEXAMIC ACID INJECTION 1,000 MG in NS (IVPB) 250 ML IV SCH (14:15)
[2021-03-09] MEDS ORDERED: TRANEXAMIC ACID INJECTION 1,000 MG in NS (IVPB) 50 ML IV ONE (14:15)
[2021-03-09] MEDS ORDERED: NS IV 500 ML 500 ML IV SCH (14:30)
[2021-03-09 14:46] LABS: ALBUMIN 2.6 GM/DL (3.2-4.5); BILIRUBIN,TOTAL 1.4 MG/DL (0.1-1.0); CREATININE SERUM 0.64 MG/DL (0.60-1.30); POTASSIUM 3.7 MMOL/L (3.6-5.0); TOTAL PROTEIN 5.7 GM/DL (6.4-8.2)
[2021-03-09] MEDS ORDERED: ONDANSETRON 4 MG/2 ML (SDV) Z0FRAN ONE ×2 (15:01→19:57)
[2021-03-09] MEDS ORDERED: ONDANSETRON 4 MG/2 ML (SDV) Z0FRAN IVP ONE (15:15)
--- NOTE | 2021-03-09 15:15 | Diagnostic Imaging Report ---
PROCEDURE: Pelvic comp/transvaginal sonogram. TECHNIQUE: Complete transabdominal and transvaginal pelvic ultrasound was performed. In addition, limited pelvic Doppler was performed. INDICATION: Postmenopausal bleeding. Uterus is anteverted measuring 4.7 x 2.3 x 2.4 cm. Endometrium appears thin at 2 mm. No myometrial mass is detected. Ovaries could not be visualized due to overlying bowel gas. No adnexal mass or free fluid is detected. IMPRESSION: Nonvisualized ovaries. The study is otherwise unremarkable. Dictated by: Dictated on workstation # [id number]
[2021-03-09] MEDS ORDERED: cefTRIAXone 1 GM PRE-MIX 50 ML IV STA (15:55)
--- NOTE | 2021-03-09 16:16 | ED GU-Female ---
General Chief Complaint: - Reproductive Stated Complaint: VAGINAL BLEEDING Nursing Triage Note: PT BROUGHT IN BY [facility] FROM HOME WITH COMPLAINT OF VAGINAL BLEEDING. PER EMS, PTS INTIAL BP WAS 60s/40s. PT WAS SEEN IN ER LAST NIGHT FOR SAME COMPLAINT. Source: patient, EMS, old records Exam Limitations: no limitations History of Present Illness Date Seen by Provider: Mar 09, 2021 Time Seen by Provider: 13:47 Initial Comments This 55-year-old woman presents to the emergency room via EMS with complaints of severe vaginal bleeding and hypotension. Blood pressure for EMS was initially in the 60s/40s before starting IV fluids. She was still hypotensive on arrival with systolic blood pressure in the 80s after about 800 mL of normal saline. Patient was seen in this ER earlier this morning. Hemoglobin was 8.0 at that time. She was to return for an ultrasound today which had not yet occurred. Patient still has a uterus. She had a fairly normal pelvic exam as documented by Dr. Woods. There was slight bleeding at that time. Patient has no known cervical or uterine pathology. She reports right oophorectomy was performed along with an appendectomy. She is afebrile. Urinary tract infection was also noted this morning. She is afebrile and denies any significant pain. Patient drinks alcohol daily. Her blood alcohol level was 441 this morning. She denies any other substance use. She has history of cirrhosis which she states is from a medication reaction many years ago and is exacerbated by her alcohol consumption. She has been a patient of Dr. Farias at [facility]. Platelets earlier this morning were 43,000. She is postmenopausal x11 years. Allergies and Home Medications Allergies Coded Allergies: Sulfa (Sulfonamide Antibiotics) (Verified Allergy, Unknown, 07/10/19) Patient Home Medication List Home Medication List Reviewed: Yes Ergocalciferol (Vitamin D2) (Vitamin D2) 1,250 Mcg Capsule, 1,250 MCG PO MON, (Reported) Entered as Reported by: PRO SANTOS on 01/17/20 1049 Famotidine (Heartburn Relief) 20 Mg Tablet, 20 MG PO DAILY, (Reported) Entered as Reported by: PRO SANTOS on 01/17/20 1049 Furosemide (Furosemide) 40 Mg Tablet, 40 MG PO DAILY, (Reported) Entered as Reported by: DOYLE MCCALL on 11/07/19 1232 Hydroxyzine HCl (Hydroxyzine HCl) 25 Mg Tablet, 25 MG PO Q8H PRN for ANXIETY, (Reported) Entered as Reported by: PRO SANTOS on 01/17/20 1049 Nitrofurantoin Monohyd/M-Cryst (Macrobid 100 mg Capsule) 100 Mg Capsule, 1 TAB PO BID Prescribed by: ERIN WOODS on 03/09/21 0150 Pantoprazole Sodium (Protonix) 40 Mg Tablet.dr, 40 MG PO BID Prescribed by: MICHELE CALDERÓN on 01/19/20 1225 Paroxetine HCl (Paroxetine HCl) 10 Mg Tablet, 10 MG PO DAILY, (Reported) Entered as Reported by: PRO SANTOS on 01/17/20 1049 Potassium Chloride (Potassium Chloride) 10 Meq Tab.er.prt, 10 MEQ PO BID Prescribed by: MICHELE CALDERÓN on 01/19/20 1225 Spironolactone (Aldactone) 100 Mg Tablet, 100 MG PO DAILY, (Reported) Entered as Reported by: PRO SANTOS on 01/17/20 1049 Sucralfate (Sucralfate) 1 Gm Tablet, 1 GM PO QID PRN for ULCERS, (Reported) Entered as Reported by: DOYLE MCCALL on 11/07/19 1232 Tramadol HCl (Tramadol HCl) 50 Mg Tablet, 50 MG PO Q6H PRN for PAIN Prescribed by: GARRY UP on 04/29/20 1051 Review of Systems Review of Systems Constitutional: no symptoms reported EENTM: no symptoms reported Respiratory: no symptoms reported Cardiovascular: no symptoms reported Gastrointestinal: no symptoms reported Genitourinary: see HPI : No Musculoskeletal: no symptoms reported Skin: no symptoms reported Psychiatric/Neurological: No Symptoms Reported Endocrine: No Symptoms Reported Hematologic/Lymphatic: See HPI Past Anaafbk-Iakphc-Jfgjid Hx Patient Social History Tobacco Use?: No Use of E-Cig and/or Vaping dev: No Substance use?: No Alcohol Use?: Yes Alcohol Frequency: Daily Immunizations Up To Date Tetanus Booster (TDap): Unknown Seasonal Allergies Seasonal Allergies: Yes Past Medical History Surgery/Hospitalization HX: Hyst Appendix R ovary Surgeries: Yes Appendectomy, Oophorectomy Respiratory: No Pneumonia Cardiac: Yes Hypertension Neurological: No Reproductive Disorders: No Genitourinary: No Gastrointestinal: Yes Gastroesophageal Reflux, Cirrhosis Musculoskeletal: No Endocrine: No HEENT: No Cancer: No Psychosocial: No Integumentary: No Blood Disorders: Yes (low iron ) Adverse Reaction/Blood Tranf: No Family Medical History Patient reports no known family medical history. No Pertinent Family Hx Physical Exam Vital Signs Vital Signs - First Documented 03/09/21 03/09/21 13:46 15:00 Temp 36.5 Pulse 107 Resp 20 B/P (MAP) 96/74 (81) Pulse Ox 98 O2 Delivery Room Air Capillary Refill : Less Than 3 Seconds Height, Weight, BMI Height: '" Weight: lbs. oz. kg; 17.00 BMI Method: General Appearance: WD/WN, mild distress, thin, other (Appears fatigued and somnolent) HEENT: PERRL/EOMI, normal ENT inspection Neck: normal inspection Cardiovascular: no edema, no murmur, tachycardia Respiratory: lungs clear, normal breath sounds, no respiratory distress Gastrointestinal: normal bowel sounds, non tender, soft Genital/Rectal: other (External genital exam reveals some bright red blood on a pad and between the vulva. No active hemorrhaging is noted at the time of my exam.) Extremities: normal inspection, no pedal edema Neurologic/Psychiatric: no motor/sensory deficits, alert, normal mood/affect, oriented x 3 Skin: normal color, warm/dry Progress/Results/Core Measures Suspected Sepsis SIRS Temperature: Pulse: 100 Respiratory Rate: 13 Laboratory Tests 03/09/21 13:50: White Blood Count 4.1L Blood Pressure 104 /57 Mean: 73 Laboratory Tests 03/09/21 13:50: Platelet Count 35*L 03/09/21 13:56: Creatinine 0.64, INR Comment 1.5H, Total Bilirubin 1.4H Results/Orders Lab Results Laboratory Tests Test 03/09/21 13:50 03/09/21 13:56 Range/Units White Blood Count 4.1 L 4.3-11.0 10^3/uL Red Blood Count 2.39 L 3.80-5.11 10^6/uL Hemoglobin 5.8 #*L 11.5-16.0 g/dL Hematocrit 20 *L 35-52 % Mean Corpuscular Volume 83 80-99 fL Mean Corpuscular Hemoglobin 24 L 25-34 pg Mean Corpuscular Hemoglobin Concent 29 L 32-36 g/dL Red Cell Distribution Width 19.0 H 10.0-14.5 % Platelet Count 35 *L 130-400 10^3/uL Mean Platelet Volume 11.6 9.0-12.2 fL Immature Granulocyte % (Auto) 0 % Neutrophils (%) (Auto) 59 42-75 % Lymphocytes (%) (Auto) 27 12-44 % Monocytes (%) (Auto) 11 0-12 % Eosinophils (%) (Auto) 1 0-10 % Basophils (%) (Auto) 2 0-10 % Neutrophils # (Auto) 2.4 1.8-7.8 10^3/uL Lymphocytes # (Auto) 1.1 1.0-4.0 10^3/uL Monocytes # (Auto) 0.5 0.0-1.0 10^3/uL Eosinophils # (Auto) 0.0 0.0-0.3 10^3/uL Basophils # (Auto) 0.1 0.0-0.1 10^3/uL Immature Granulocyte # (Auto) 0.0 0.0-0.1 10^3/uL Percent Immature Platelet Fraction 7.2 0.0-7.6 % Smear Scan Prothrombin Time 18.6 H 12.2-14.7 SEC INR Comment 1.5 H 0.8-1.4 Sodium Level 142 135-145 MMOL/L Potassium Level 3.7 3.6-5.0 MMOL/L Chloride Level 111 H 98-107 MMOL/L Carbon Dioxide Level 20 L 21-32 MMOL/L Anion Gap 11 5-14 MMOL/L Blood Urea Nitrogen 7 7-18 MG/DL Creatinine 0.64 0.60-1.30 MG/DL Estimat Glomerular Filtration Rate 104 BUN/Creatinine Ratio 11 Glucose Level 119 H 70-105 MG/DL Calcium Level 7.0 L 8.5-10.1 MG/DL Corrected Calcium 8.1 L 8.5-10.1 MG/DL Total Bilirubin 1.4 H 0.1-1.0 MG/DL Aspartate Amino Transf (AST/SGOT) 137 H 5-34 U/L Alanine Aminotransferase (ALT/SGPT) 31 0-55 U/L Alkaline Phosphatase 145 H 40-136 U/L Total Protein 5.7 L 6.4-8.2 GM/DL Albumin 2.6 L 3.2-4.5 GM/DL Serum Alcohol 249 H <10 MG/DL My Orders Orders - CATRACHO TATE MD Red Cells Leukocytes Reduced (03/09/21 13:59) Type And Screen (03/09/21 13:59) Alcohol (03/09/21 14:00) Cbc With Automated Diff (03/09/21 14:00) Comprehensive Metabolic Panel (03/09/21 14:00) Drug Screen Stat (Urine) (03/09/21 14:00) Protime With Inr (03/09/21 14:00) Ed Iv/Invasive Line Start (03/09/21 14:00) Ns (Ivpb) (Sodium C... W/Tranexamic Acid (03/09/21 14:15) Tranexamic Acid Injection (Cyklokapron I (03/09/21 14:15) Megestrol Tablet (Megace Tablet) (03/10/21 09:00) Platelet Pheresis Lr (03/09/21 14:20) Fresh Frozen Plasma (03/09/21 14:20) Ns Iv 500 Ml (Sodium Chloride 0.9%) (03/09/21 14:30) Ed Iv/Invasive Line Start (03/09/21 14:23) Ondansetron Injection (Zofran Injectio (03/09/21 15:15) Ondansetron Injection (Zofran Injectio (03/09/21 15:01) Us Non Ob Pelvis Comp/Transvag (03/09/21 14:26) Ed Admission (Communication) (03/09/21 15:53) Ceftriaxone 1 Gm Pre-Mix (Rocephin 1 Gm (03/09/21 15:55) Medications Given in ED Current Medications Medications Dose Ordered Sig/Christian Route Start Time Stop Time Status Last Admin Dose Admin Ondansetron HCl 8 mg ONCE ONCE IVP 03/09/21 15:15 03/09/21 15:16 DC 03/09/21 15:07 8 MG Tranexamic Acid 1000 mg/Sodium Chloride 60 ml @ 330 mls/hr ONCE ONCE IV 03/09/21 14:15 03/09/21 14:25 DC 03/09/21 14:32 330 MLS/HR Vital Signs/I&O 1/18/22 1/18/22 1/18/22 1/18/22 13:46 15:00 15:20 15:30 Temp 36.5 36.6 36.5 Pulse 107 120 104 105 Resp 20 20 18 12 B/P (MAP) 96/74 (81) 82/50 96/56 96/58 Pulse Ox 98 96 96 97 O2 Delivery Room Air Room Air 03/09/21 03/09/21 15:45 15:53 Temp 36.5 36.6 Pulse 96 100 Resp 14 13 B/P (MAP) 104/66 104/57 Pulse Ox 97 97 O2 Delivery Room Air Room Air Capillary Refill : Less Than 3 Seconds Blood Pressure Mean: 73 Progress Note : Progress Note Patient was seen and examined upon arrival. The first liter of IV fluids was completed. This resuscitated her systolic blood pressure to around 90. Tranexamic acid was ordered to help control the bleeding. I did discuss this with the patient prior to administering it. She is aware that this is an off label use and this medication is typically used for trauma. She states she is willing to try anything to get the bleeding to stop without surgery. Patient would be a very poor surgical candidate due to her low platelets, elevated INR, and alcohol dependence. Case was reviewed with Dr. Barrios who requested ultrasound. Ultrasound showed no gross abnormalities. I reviewed the cell count abnormalities with Dr. Clement, laborer heading. We agree that patient should receive a unit of PRBC, a platelet pack, and 1 unit of FFP. Patient has received the platelet pack and the unit of blood. FFP is still infusing. Rocephin is being given for treatment of bladder infection. Zofran was given for nausea. Patient continued to have some bleeding during her ER visit. She passed a fairly large clot during the ultrasound. Further bleeding was roughly equivalent to a moderate to heavy menstrual period. Diagnostic Imaging Diagonstic Imaging: Ultrasound Plain Films/CT/US/NM/MRI: pelvis Comments NAME: MONTY PARKER MED REC#: [id number] PT STATUS: REG ER : 1965 PHYSICIAN: CATRACHO TATE MD ADMIT DATE: 03/09/21/ER Draft Date of Exam:03/09/21 US NON OB PELVIS COMP/TRANSVAG PROCEDURE: Pelvic comp/transvaginal sonogram. TECHNIQUE: Complete transabdominal and transvaginal pelvic ultrasound was performed. In addition, limited pelvic Doppler was performed. INDICATION: Postmenopausal bleeding. Uterus is anteverted measuring 4.7 x 2.3 x 2.4 cm. Endometrium appears thin at 2 mm. No myometrial mass is detected. Ovaries could not be visualized due to overlying bowel gas. No adnexal mass or free fluid is detected. IMPRESSION: Nonvisualized ovaries. The study is otherwise unremarkable. Dictated on workstation # [id number] Dict: 03/09/21 1511 Trans: 03/09/21 1515 [facility] [id number] Interpreted by: JAKY GREENBERG MD Departure Communication (Admissions) Time/Spoke to Admitting Phy: 15:40 Dr. Calderón Time/Spoke to Consulting Phy: 14:15 Dr. Barrios Impression Primary Impression: Severe anemia Additional Impressions: Vaginal hemorrhage Urinary tract infection Qualified Codes: N39.0 - Urinary tract infection, site not specified Alcohol dependence Qualified Codes: F10.29 - Alcohol dependence with unspecified alcohol- induced disorder Disposition: ADMITTED INPATIENT Condition: Improved Admissions Decision to Admit Reason: Admit from ER (General) Decision to Admit/Date: Mar 09, 2021 Time/Decision to Admit Time: 13:50 Departure-Patient Inst. Referrals: [facility] (PCP/Family) Primary Care Physician CATRACHO TATE MD Mar 09, 2021 16:15
[2021-03-09] MEDS ORDERED: polyethylene glycoL POWDER 17 GM (MIRALAX) PACK PO PRN (19:45)
[2021-03-09] MEDS ORDERED: LORazepam 1 MG (ATIVAN) TAB PO PRN (19:45)
[2021-03-09] MEDS ORDERED: LORazepam INJ 2 MG/ML (ATIVAN) VIAL IV PRN (19:45)
[2021-03-09] MEDS ORDERED: morphine INJ 4 MG/ML 1 ML (VIAL/SYRINGE) IV PRN (19:45)
[2021-03-09] MEDS ORDERED: LACTULOSE SYRUP 10GM/15ML (ENULOSE) 30ML UDC PO PRN (19:45)
[2021-03-09] MEDS ORDERED: ANTACID SUSP 30 ML UDC (MYLANTA) PO PRN (19:45)
[2021-03-09] MEDS ORDERED: 1/2 NS IV SOLUTION 1,000 ML IV PRN (19:45)
[2021-03-09] MEDS ORDERED: ACETAMINOPHEN 325 MG TABLET PO PRN (19:45)
[2021-03-09] MEDS ORDERED: BISACODYL 10 MG SUPP (DULCOLAX) PR PRN (19:45)
[2021-03-09] MEDS ORDERED: ONDANSETRON 4 MG (ZOFRAN) ORAL DISSOLVE TAB PO PRN (19:45)
[2021-03-09] MEDS ORDERED: diphenhydrAMINE 50 MG/ML INJ (BENADRYL) IVP PRN (19:45)
[2021-03-09] MEDS ORDERED: diphenhydrAMINE 25 MG TAB (BENADRYL) PO PRN (19:45)
[2021-03-09] MEDS ORDERED: MILK OF MAGNESIA 400 MG/5 ML 30 ML UDC PO PRN (19:45)
[2021-03-09] MEDS ORDERED: MELATONIN 3 MG TABLET PO PRN (19:45)
[2021-03-09] MEDS ORDERED: LORazepam INJ 2 MG/ML (ATIVAN) VIAL IM/IV PRN (19:45)
[2021-03-09] MEDS ORDERED: D5 1/2 NS 1000 ML IV SOLUTION 1,000 ML IV PRN (19:45)
[2021-03-09] MEDS: ONDANSETRON 4 MG/2 ML (SDV) Z0FRAN IV PRN (20:06)
[2021-03-09] MEDS ORDERED: RT-ALBUTEROL SULF 2.5 MG/3 ML PRE-MIX VIAL INH PRN (20:15)
[2021-03-09 20:30] LABS: BASOPHILS % (AUTO) 1 % (0-10); EOSINOPHILS % (AUTO) 0 % (0-10)
[2021-03-09 20:32] LABS: LYMPHOCYTES # (AUTO) 0.5 10^3/uL (1.0-4.0); LYMPHOCYTES % (AUTO) 13 % (12-44); MEAN CORPUSCULAR HEMOGLOBIN 28 pg (25-34); MEAN CORPUSCULAR HGB CONC 33 g/dL (32-36); MEAN CORPUSCULAR VOLUME 85 fL (80-99); MEAN PLATELET VOLUME 10.8 fL (9.0-12.2); MONOCYTES # (AUTO) 0.4 10^3/uL (0.0-1.0); MONOCYTES % (AUTO) 11 % (0-12); NEUTROPHILS # (AUTO) 2.9 10^3/uL (1.8-7.8); NEUTROPHILS % (AUTO) 75 % (42-75); WHITE BLOOD COUNT 3.9 10^3/uL (4.3-11.0)
[2021-03-09] MEDS ORDERED: NS IV 1000 ML 1,000 ML ONE (20:43)
[2021-03-09 20:58] LABS: HEMATOCRIT 20 % (35-52); HEMOGLOBIN 6.5 g/dL (11.5-16.0); PLATELET COUNT 38 10^3/uL (130-400)
[2021-03-09] MEDS ORDERED: NS (IVPB) 250 ML ONE (21:12)
[2021-03-09] MEDS: NS IV 1000 ML 1,000 ML IV SCH (23:10)
[2021-03-09] MEDS: MAGNESIUM OXIDE (MAG-OX)400 MG TAB PO SCH (23:10)
[2021-03-09] MEDS: DOCUSATE SODIUM 100 MG (COLACE) CAP PO SCH (23:11)
[2021-03-09] MEDS: CALCIUM CARBONATE 500 MG (TUMS) TAB.CHEW PO PRN (23:11)
[2021-03-09] MEDS: SENNOSIDES 8.6 MG (SENOKOT) TAB PO SCH (23:13)
[2021-03-09] MEDS: MEGESTROL 40 MG (MEGACE) TAB PO SCH (23:13)
[2021-03-10] VITALS (7 sets, daily range): BP systolic 135–146; BP diastolic 60–79
[2021-03-10 06:04] LABS: BASOPHILS % (AUTO) 1 % (0-10); EOSINOPHILS % (AUTO) 1 % (0-10); HEMATOCRIT 25 % (35-52); LYMPHOCYTES # (AUTO) 0.6 10^3/uL (1.0-4.0); LYMPHOCYTES % (AUTO) 17 % (12-44); MEAN CORPUSCULAR HEMOGLOBIN 27 pg (25-34); MEAN CORPUSCULAR HGB CONC 32 g/dL (32-36); MEAN CORPUSCULAR VOLUME 84 fL (80-99); MEAN PLATELET VOLUME 10.2 fL (9.0-12.2); MONOCYTES # (AUTO) 0.5 10^3/uL (0.0-1.0); MONOCYTES % (AUTO) 12 % (0-12); NEUTROPHILS # (AUTO) 2.6 10^3/uL (1.8-7.8); NEUTROPHILS % (AUTO) 69 % (42-75); WHITE BLOOD COUNT 3.8 10^3/uL (4.3-11.0)
[2021-03-10 06:07] LABS: PLATELET COUNT 30 10^3/uL (130-400)
[2021-03-10 06:08] LABS: ALBUMIN 2.8 GM/DL (3.2-4.5); POTASSIUM 3.6 MMOL/L (3.6-5.0)
[2021-03-10 06:10] LABS: CALCIUM 7.1 MG/DL (8.5-10.1)
[2021-03-10 06:11] LABS: INR 1.3 (0.8-1.4); PROTHROMBIN TIME PATIENT 16.6 SEC (12.2-14.7); TOTAL PROTEIN 5.9 GM/DL (6.4-8.2)
[2021-03-10 06:13] LABS: BILIRUBIN,TOTAL 2.8 MG/DL (0.1-1.0)
[2021-03-10 06:14] LABS: CREATININE SERUM 0.6 MG/DL (0.60-1.30)
[2021-03-10] MEDS ORDERED: MULTIVIT W/MINERALS TAB (THERAGRAN M) PO SCH (07:00)
[2021-03-10] MEDS ORDERED: THIAMINE 100 MG (VITAMIN B-1) TAB PO SCH (07:00)
--- NOTE | 2021-03-10 08:46 | Consultation ---
History of Present Illness History of Present Illness Patient Consulted On(geeta/time) 03/10/21 08:41 Date Seen by Provider: Mar 10, 2021 Time Seen by Provider: 08:30 Reason for Visit: Vaginal hemorrhage, post menopausal bleeding History of Present Illness This is a 55 year old female with reported menopause many years ago (at one point said 11 years, but also told me 20 years ago, in "my 30s"). Has not had any bleeding until 2 night ago when she reports sudden onset of hemorrhage. Bright red blood per vagina. She presented to the ED on 03/08 and was seen to be bleeding from the vagina. Exam revealed blood in the vault but no masses. She had hgb of 8 and plts of 40,000. Had etoh level > 400. Was sent home early on Monday with order to have outpatient Us and follow up with Dr. Ovalles in the office. She presented on Monday via EMS with continued heavy bleeding but had unstable vitals. On presentation to the ED plts were in the 20,000 and Hgb was 5. She had US that showed no masses, endometrium was 2 mm thickness. She was given IV TXA for bleeding and started on transfusion protocol (has received PRBCs, plts, FFP). 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 Currently she states she had to have her pad changed twice yesterday and once again at 0130. But reports she is having more clots and not hemorrhage. On my exam she is not currently bleeding. She has history of RSO due to what sounds like TOA at the time of an appendectomy. She has history of pap smear in the last few weeks at [facility] and reports this was negative. Reports pap prior to that was at least 5 years earlier. No history of abnormal pap. She is G1 with history of SAB and possible D&C. Had colonoscopy about 1 1/2 years ago due to rectal bleeding. Dx gastritis and internal hemorrhoids. Biopsy was negative. Per records on [facility] has had anemia and thrombocytopenia for quite awhile. CT and US consistent with cirrhotic changes of the liver and portal hypertension. Cholelithiasis noted on previous exams as well. Patient reports she "does not have cirrhosis" and that "they are just watching my liver". Allergies and Home Medications Allergies Coded Allergies: Sulfa (Sulfonamide Antibiotics) (Verified Allergy, Unknown, 07/10/19) Patient Home Medication List Home Medication List Reviewed: Yes Ergocalciferol (Vitamin D2) (Vitamin D2) 1,250 Mcg Capsule, 1,250 MCG PO FRI, (Reported) Entered as Reported by: PRO SANTOS on 01/17/20 1049 Famotidine (Heartburn Relief) 20 Mg Tablet, 20 MG PO DAILY, (Reported) Entered as Reported by: PRO SANTOS on 01/17/20 1049 Furosemide (Furosemide) 40 Mg Tablet, 40 MG PO DAILY, (Reported) Entered as Reported by: DOYLE MCCALL on 11/07/19 1232 Hydroxyzine HCl (Hydroxyzine HCl) 25 Mg Tablet, 25 MG PO Q8H PRN for ANXIETY, (Reported) Entered as Reported by: PRO SANTOS on 01/17/20 1049 Nitrofurantoin Monohyd/M-Cryst (Macrobid 100 mg Capsule) 100 Mg Capsule, 1 TAB PO BID Prescribed by: ERIN WOODS on 03/09/21 0150 Pantoprazole Sodium (Protonix) 40 Mg Tablet.dr, 40 MG PO BID Prescribed by: MICHELE CALDERÓN on 01/19/20 1225 Paroxetine HCl (Paroxetine HCl) 10 Mg Tablet, 10 MG PO DAILY, (Reported) Entered as Reported by: PRO SANTOS on 01/17/20 1049 Potassium Chloride (Potassium Chloride) 10 Meq Tab.er.prt, 10 MEQ PO BID Prescribed by: MICHELE CALDERÓN on 01/19/20 1225 Spironolactone (Aldactone) 100 Mg Tablet, 100 MG PO DAILY, (Reported) Entered as Reported by: PRO SANTOS on 01/17/20 1049 Sucralfate (Sucralfate) 1 Gm Tablet, 1 GM PO QID PRN for ULCERS, (Reported) Entered as Reported by: DOYLE MCCALL on 11/07/19 1232 Tramadol HCl (Tramadol HCl) 50 Mg Tablet, 50 MG PO Q6H PRN for PAIN Prescribed by: GARRY UP on 04/29/20 1051 Past Inukboy-Grusgz-Ogtyfg Hx Patient Social History Tobacco Use?: No Smoking Status: Never a Smoker Use of E-Cig and/or Vaping dev: No Substance use?: No Alcohol Use?: Yes Alcohol type: Beer Alcohol Frequency: Daily Pt feels they are or have been: Yes Immunizations Up To Date Tetanus Booster (TDap): Unknown Influenza Vaccine Up-to-Date: Yes; Up-to-Date Seasonal Allergies Seasonal Allergies: Yes Past Medical History Surgery/Hospitalization HX: Hyst Appendix R ovary Surgeries: Yes Appendectomy, Oophorectomy Respiratory: No Pneumonia Cardiac: Yes Hypertension Neurological: No Hx : 1 Hx Para: 0 Hx Total # of Abortions (Sp): 1 Reproductive Disorders: No Genitourinary: No Gastrointestinal: Yes Gastroesophageal Reflux, Cirrhosis Musculoskeletal: No Endocrine: No HEENT: No Cancer: No Psychosocial: No Integumentary: No Blood Disorders: Yes (low iron ) Adverse Reaction/Blood Tranf: No Family Medical History Patient reports no known family medical history. No Pertinent Family Hx Physical Exam-General Problems Physical Exam Vital Signs Vital Signs - First Documented 03/09/21 03/09/21 03/09/21 13:46 15:00 19:58 Temp 36.5 Pulse 107 Resp 20 B/P (MAP) 96/74 (81) Pulse Ox 98 O2 Delivery Room Air FiO2 21 Capillary Refill : Less Than 3 Seconds General Appearance: no apparent distress Gastrointestinal: No guarding, No rebound, No tenderness; hepatomegaly, spleenomegaly Genital/Rectal: other (pelvic exam done, cervix is small without mass noted. There is no blood in the vault or from the cervix at this time. Uterus is not enlarged and there are no adnexal masses noted. ) Assessment/Plan Assessment/Plan Admission Diagnosis/Plan 1. Vaginal hemorrhage 2. post menopausal bleeding 3. severe anemia 4. thrombocytopenia 5. coagulopathy 6. liver disease/alcoholic cirrhosis 7. UTI diagnosed in the UTI - will continue the antibiotics outpatient (Macrodantin). Give 1 dose of IV rocephin now Plan - currently bleeding has stopped, likely due to TXA. Have started her on megace 40 mg bid to help with postmenopausal bleeding but she will need a full workup. US was negative for masses or thickened endometrium. Reports having a pap smear at [facility] [place] [facility] a few weeks ago that was negative. Bleeding may be due to coagulopathy, but need to continue workup so will see her in the office after discharge for endometrial biopsy. She will DC home with megace 40 mg bid (this can be increased to up to 800 mg bid in divided doses and does not need to be dosed for liver disease). Could do TXA 1300 mg tid for up to 5 days to stop bleeding as well, but she is currently not bleeding. APAP stopped due to liver disease. Admission Status: Other Clinical Quality Measures DVT/VTE Risk/Contraindication: Contraindications-Pharm: Other *list below* Other: menorrhagia severe TRISTA RAMIREZ DO Mar 10, 2021 08:46
[2021-03-10] MEDS ORDERED: FOLIC ACID 1 MG TAB PO SCH (09:00)
[2021-03-10] MEDS ORDERED: MEGESTROL 40 MG (MEGACE) TAB PO SCH (09:00)
[2021-03-10] MEDS ORDERED: cefTRIAXone 1 GM PRE-MIX 50 ML IV SCH (09:00)
[2021-03-10] MEDS: SENNOSIDES 8.6 MG (SENOKOT) TAB PO SCH (09:20)
[2021-03-10] MEDS: DOCUSATE SODIUM 100 MG (COLACE) CAP PO SCH (09:20)
[2021-03-10] MEDS: MAGNESIUM OXIDE (MAG-OX)400 MG TAB PO SCH (09:20)
[2021-03-10] MEDS: NS IV 1000 ML 1,000 ML IV SCH (09:20)
[2021-03-10] MEDS: MEGESTROL 40 MG (MEGACE) TAB PO SCH (09:58)
[2021-03-10] MEDS ORDERED: SENN15TA5 PO (10:21)
[2021-03-10] MEDS ORDERED: LORA10TA7 PO (10:21)
[2021-03-10] MEDS ORDERED: ALEN10TA8 PO (10:21)
[2021-03-10] MEDS ORDERED: MELA10TA2 PO (10:21)
[2021-03-10] MEDS ORDERED: FURO40TA4 PO (10:21)
[2021-03-10] MEDS ORDERED: SPIR100T4 PO (10:21)
[2021-03-10] MEDS ORDERED: PANT40TA52 PO (10:21)
[2021-03-10] MEDS ORDERED: ADAL40SY SQ (10:21)
[2021-03-10] MEDS ORDERED: HYDR-700 PO (10:21)
[2021-03-10] MEDS ORDERED: LACT10SO27 PO (10:21)
[2021-03-10] MEDS ORDERED: MEGE40TA5 PO (10:44)
[2021-03-10] MEDS ORDERED: VITA-189 PO (10:44)
[2021-03-10] MEDS ORDERED: NITR-65 PO (10:44)
[2021-03-10] MEDS: CALCIUM CARBONATE 500 MG (TUMS) TAB.CHEW PO PRN (12:13)
--- NOTE | 2021-03-10 12:28 | Short Stay Summary-Hospitalist ---
ARABELLA SILVER 03/10/21 1228: History of Present Illness HPI/Chief Complaint CC: Vaginal bleeding HPI: Patient presented to the ED yesterday, 03/09, via EMS with hypotension and vaginal bleeding. She was previously in the ED earlier that day and had been sent home with instruction to arrive later for transabdominal and transvaginal ultrasounds. At the time her hemoglobin was 8.0. IV fluids were initiated. Her blood alcohol was 441. Serum alcohol 249. Platelets were 43,000. Patient is post-menopausal for 11 years. UTI was noted. Tranexamic acid was administered for bleeding control. Patient received 1 unit of PRBC, 1 platelet pack, and 1 unit of FFP. Rocephin initiated for UTI management. This morning the patient is laying in bed resting and appears stable. She states she feels tired and dizzy. She reports the vaginal bleeding began on Monday. She reports soaking full bathroom towels with bright red blood. She says when she came to the hospital she started passing blood clots. She states before transferring to Cardiac Step-down the bleeding had appeared to stop. When she arrived to the floor she reports that the bleeding had started again. Currently she says the bleeding is mild/spotting. She denies previous occurrence. She states she sees Dr. Flores at [facility] for management of her cirrhosis. Source: patient, EMS notes reviewed Exam Limitations: no limitations Date Seen 03/10/21 Time Seen by a Provider: 10:15 Attending Physician Sabrina Calderón DO [facility] Referring Physician Date of Admission Mar 09, 2021 at 15:54 Home Medications & Allergies Home Medications Reviewed patient Home Medication Reconciliation performed by pharmacy medication reconciliations gas plant technician and/or nursing. Patients Allergies have been reviewed. 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) Tobacco Use?: No Smoking Status: Never a Smoker Use of E-Cig and/or Vaping dev: No Substance use?: No Alcohol Use?: Yes Alcohol type: Beer Alcohol Frequency: Daily Pt stated abuse/neglect: Yes Immunizations Up To Date Influenza Vaccine Up-to-Date: Yes; Up-to-Date Tetanus Booster (TDap): Unknown Current Status status: No status: No Advance Directives: No Communicates: Verbally Primary Language: Nauruan Preferred Spoken Language: Nauruan Is interpretation needed?: No Implanted or Applied Medical D: None Past Medical History HTN GERD Alcoholic cirrhosis Iron deficiency Pneumonia Alcohol abuse disorder Family Medical History Family Hx: No pertinent family history Review of Systems Constitutional: dizziness, weakness, other (fatigue) EENTM: other (sinus congestion, frontal sinus pain) Respiratory: short of breath Cardiovascular: No chest pain, No edema; palpitations (1 event of palpitations last evening) Gastrointestinal: No abdominal pain, No constipation; loss of appetite; No nausea (2-3 episodes of emesis last night), No vomiting (2-3 episodes of emesis last night. Nausea has resolved) Genitourinary: see HPI : No Musculoskeletal: back pain (lower back pain) Psychiatric/Neurological: Headache (sinus headache) Physical Exam Physical Exam Vital Signs Vital Signs - First Documented 03/09/21 03/09/21 03/09/21 13:46 15:00 19:58 Temp 36.5 Pulse 107 Resp 20 B/P (MAP) 96/74 (81) Pulse Ox 98 O2 Delivery Room Air FiO2 21 Capillary Refill : Less Than 3 Seconds Height, Weight, BMI Height: '" Weight: lbs. oz. kg; 17.77 BMI Method: General Appearance: No Apparent Distress, Thin, Other (pallor) Eyes: Bilateral Eye Conjunctivae Pale HEENT: Pale Conjunctivae (L), Pale Conjunctivae (R) Respiratory: Lungs Clear, Normal Breath Sounds, No Accessory Muscle Use, No Respiratory Distress Cardiovascular: Regular Rate, Rhythm, No Edema, No Murmur, Normal Peripheral P ulses (right radial +2) Gastrointestinal: Normal Bowel Sounds, Non Tender, Soft Extremity: No Pedal Edema Neurologic/Psychiatric: Alert, Other (patient is oriented to person, place, and date. There is some confusion as to how long she has been in the hospital, likely due to alcohol abuse) Skin: Warm/Dry, Pallor Results Results/Procedures Labs Laboratory Tests 03/09/21 13:50 03/09/21 13:56 03/09/21 20:08 03/10/21 05:50 Patient resulted labs reviewed. Imaging: Reviewed Imaging Report Short Stay Diagnosis Discharge Diagnosis-Short Stay Admission Diagnosis Severe anemia with vaginal hemorrhage Final Discharge Diagnosis Vaginal hemorrhage Severe anemia, Hemoglobin of 8.0 s/p 1 unit of PRBC, 1 platelet packet, and 1 unit FFP UTI Alcohol dependence Thrombocytopenia Coagulopathy Alcoholic liver cirrhosis Conclusion Plan Folic acid supplementation, Thiamine supplementation, and Multivitamin for deficiencies likely related to alcoholic cirrhosis Megace 40mg BID Endometrial biopsy outpatient with Dr. Barrios Macrobid 100mg BID for 5 days for UTI Clinical Quality Measures DVT/VTE Risk/Contraindication: Contraindications-Pharm: Other *list below* Other: menorrhagia severe SABRINA CALDERÓN DO 03/11/21 0553: History of Present Illness HPI/Chief Complaint CC: Menorrhagia HPI: 55 [facility] old [facility] pt of [facility] who has a known history of alcoholic cirrhosis. Sees Dr. Flores at . Who can't cease consuming alcohol. Who reports dysfunctional uterine bleeding started on Monday and went to the ER, labs checked and sent home. She returned back in an ambulance due to severe hemorrhage. She was found to have a hemoglobin of 5.8. Received 1 unit of blood and increased to 6.5 and after the second unit she remains at 8.0. She was given 1 unit of blood and 1 unit of platelets in FFP. She will be placed on Macrobid after Rocephin. Transitioned from in-patient and she will go home today with close follow-up with Dr. Barrios in one week. 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 Review of Systems Constitutional: see HPI, dizziness, weakness Physical Exam Physical Exam General Appearance: No Apparent Distress, WD/WN, Chronically ill Eyes: Bilateral Eye Normal Inspection, Bilateral Eye PERRL HEENT: PERRL/EOMI, Normal ENT Inspection, Pharynx Normal Neck: Full Range of Motion, Normal Inspection, Non Tender, Supple, Carotid Bruit Respiratory: Chest Non Tender, Lungs Clear, Normal Breath Sounds, No Accessory Muscle Use, No Respiratory Distress Cardiovascular: Regular Rate, Rhythm, No Edema, No Gallop, No JVD, No Murmur, Normal Peripheral Pulses Gastrointestinal: Normal Bowel Sounds, No Organomegaly, No Pulsatile Mass, Non Tender, Soft Back: Normal Inspection, No CVA Tenderness, No Vertebral Tenderness Extremity: Normal Capillary Refill, Normal Inspection, Normal Range of Motion, Non Tender, No Calf Tenderness, No Pedal Edema Neurologic/Psychiatric: Alert, Oriented x3, No Motor/Sensory Deficits, Normal Mood/Affect Skin: Normal Color, Warm/Dry Lymphatic: No Adenopathy Short Stay Diagnosis Discharge Diagnosis-Short Stay Admission Diagnosis Vaginal hemorrhage Alcoholic cirrhosis Alcohol withdrawal Plan: Discharge home Dr. Barrios appointment Final Discharge Diagnosis vaginal hemorrhage s/p 2 units of blood Conclusion Plan DC home Supervisory-Addendum Brief Verification & Attestation Participated in pt care: history, MDM, physical Personally performed: exam, history, MDM, supervision of care Care discussed with: Medical Student Procedures: n/a Results interpretation: Verified all documentation Verification and Attestation of Medical Student E/M Service A medical student performed and documented this service in my presence. I revie wed and verified all information documented by the medical student and made modifications to such information, when appropriate. I personally performed the physical exam and medical decision making. Sabrina Calderón Mar 11, 2021,05:50 ARABELLA SILVER Mar 10, 2021 12:28 SABRINA CALDERÓN DO Mar 11, 2021 05:53
[2021-03-10] MEDS: ONDANSETRON 4 MG/2 ML (SDV) Z0FRAN IV PRN (14:49)
== END 2021-03-10 16:05 | disposition home or self-care (01) | DRG 760 ==
LOC: EDUNIT# 13:46 → ER 13:47 → CSD 15:54
PROVIDERS: ADMIT Internal Medicine; ATTEND Internal Medicine
DX: N95.0 Postmenopausal bleeding (principal); N39.0 Urinary tract infection, site not specified; F10.239 Alcohol dependence with withdrawal, unspecified; D68.9 Coagulation defect, unspecified; D50.0 Iron deficiency anemia secondary to blood loss (chronic); I95.9 Hypotension, unspecified; Y90.8 Blood alcohol level of 240 mg/100 ml or more; I10 Essential (primary) hypertension; Z88.2 Allergy status to sulfonamides; N93.9 Abnormal uterine and vaginal bleeding, unspecified; K70.30 Alcoholic cirrhosis of liver without ascites; F17.210 Nicotine dependence, cigarettes, uncomplicated; D69.6 Thrombocytopenia, unspecified; K21.9 Gastro-esophageal reflux disease without esophagitis
CPT/HCPCS: 36415; 76830; 76856; 80053; 80320; 82140; 85025; 85610; 86850; 86900; 86901; 86922

== ENCOUNTER → 2021-05-10 | Outpatient (CLI) | payer OTHER ==
[~2021-05-10] MED LIST changes: +ADAL40SY SQ; +ALEN10TA8 PO; +LACT10SO27 PO; +LORA10TA7 PO; +MEGE40TA5 PO; +MELA10TA2 PO; +SENN15TA5 PO; +VITA-189 PO
--- NOTE | 2021-05-10 10:19 | Diagnostic Imaging Report ---
INDICATION: Cirrhosis. PROCEDURE: Ultrasound abdomen complete. TECHNIQUE: Multiple Real-time grayscale images were obtained of the abdomen in various projections. COMPARISON: Prior ultrasound from 10/27/2020. FINDINGS: The liver measures approximate 14.4 cm in size. A nodular contour to the liver with coarse parenchymal heterogeneity is again noted, consistent with cirrhosis. No discrete liver mass is detected. The portal vein does remain patent and does show normal direction of flow. There are numerous varices adjacent to the left lobe again noted. The spleen remains upper limits at approximately 13 cm. The features remain compatible with portal hypertension. No definite ascites is present, however. The pancreas is grossly unremarkable. The gallbladder does contain small stones. There is no wall thickening or biliary ductal dilatation. The aorta is nonaneurysmal. The IVC is patent. The right kidney is small at 7.6 cm. The left kidney is 10.1 cm. No definite calculus or hydronephrosis is detected. IMPRESSION: 1. Stable appearance to the abdomen since the exam from 10/27/2020. Features remain consistent with cirrhosis and portal hypertension. No discrete liver mass is identified. There is no ascites. 2. Cholelithiasis without evidence of acute cholecystitis. Dictated by: Dictated on workstation # [id number]
== END ==
LOC: RAD 09:15
PROVIDERS: ATTEND Nurse Practitioner Adult Health
DX: K80.20 Calculus of gallbladder without cholecystitis without obstruction (principal); K70.30 Alcoholic cirrhosis of liver without ascites
CPT/HCPCS: 76700